=== PATIENT | female | born 1945 | race Caucasian/White ===

== ENCOUNTER 2016-09-17 20:25 | Emergency (ER) | payer MEDICARE, OTHER ==
[2016-09-17] MEDS ORDERED: Sodium Phosphate,Monobasic/Sodium Phosphate,Dibasic Enema 133 ML Bottle RECTAL ONE (21:14)
[2016-09-17] MEDS ORDERED: Alum Hydrox/Mag Hydrox/Simeth 15 ML, Lidocaine 2% 15 ML PO ONE ×2 (21:41)
[2016-09-17 23:06] VITALS: BP 112/65
--- NOTE | 2016-09-17 23:15 | EDM.PDOC ---
ED HPI GI/ABDOMINAL - General Chief Complaint: Gastrointestinal Problem Stated Complaint: VOMITING / CONSTIPATION Time Seen by Provider: 09/17/16 20:53 Source: Reports: Patient History Limitations: Reports: No limitations - History of Present Illness INITIAL COMMENTS - FREE TEXT/NARRATIVE: History of present illness: [Patient is here with constipation. She's not had a good bowel movement for 4 days. She periodically has trouble like this and has been in the ER before for enemas. She's tried to him MiraLax and enemas at home without relief. She is feeling quite miserable. No fevers or chills no vomiting or nausea.] Review of systems: As per history of present illness and below otherwise all systems reviewed and negative. Past medical history: As per history of present illness and as reviewed below otherwise noncontributory. Surgical history: As per history of present illness and as reviewed below otherwise noncontributory. Social history: No reported history of drug or alcohol abuse. Family history: As per history of present illness and as reviewed below otherwise noncontributory. Physical exam: HEENT: Atraumatic, normocephalic, pupils reactive, negative for conjunctival pallor or scleral icterus, mucous membranes moist, throat clear, neck supple, nontender, trachea midline. Lungs: Clear to auscultation, breath sounds equal bilaterally, chest nontender. Heart: S1S2, regular, negative for clicks, rubs, or JVD. Abdomen: The abdomen is doughy and tender throughout without peritoneal signs. Pelvis: Stable nontender. Genitourinary: Deferred. Rectal: Deferred. Extremities: Atraumatic, negative for cords or calf pain. Neurovascular unremarkable. Neuro: Awake, alert, oriented. Exam nonfocal. Diagnostics: [] Therapeutics: [She received several enemas and had good results and felt much better and was very thankful] Impression: [Constipation] Plan: [We discussed some home measures she could try to try to prevent this from happening.] Definitive disposition and diagnosis as appropriate pending reevaluation and review of above. - Related Data Allergies/ADRs: Allergies Allergy/AdvReac Type Severity Reaction Status Date / Time amitriptyline Allergy Cannot Verified 09/17/16 21:05 Remember celecoxib Allergy Cannot Verified 09/17/16 21:05 Remember lurasidone HCl [From Latuda] Allergy Cannot Verified 09/17/16 21:05 Remember Sulfa (Sulfonamide Allergy Rash Verified 09/17/16 21:05 Antibiotics) tramadol Allergy Itching Verified 09/17/16 21:05 Home Meds: Home Meds Cholecalciferol (Vitamin D3) [Vitamin D3] 5,000 unit PO DAILY 11/20/13 [History] Cyanocobalamin (Vitamin B-12) [Vitamin B-12] 1,000 mcg IM ASDIRECTED 11/20/13 [ History] Venlafaxine [Effexor] 150 mg PO BID 11/20/13 [History] Ondansetron [Zofran] 4 mg PO Q8H PRN 12/25/13 [History] LORazepam [Ativan] 0.5 mg PO BID PRN 08/30/15 [History] Diclofenac Sodium [Voltaren 1% Gel] 2 gram TOP QID 02/12/16 [History] FLUoxetine HCl [Fluoxetine HCl] 80 mg PO BEDTIME 03/03/16 [History] Docusate Sodium/Sennosides [Senna Plus] 2 tab PO BID #120 tablet 03/04/16 [Rx] Calcium Carbonate [Tums] 500 mg PO DAILY 03/19/16 [History] traZODone 75 mg PO BEDTIME #0 03/20/16 [Rx] Docusate Sodium/Sennosides [Senna Plus] 2 tab PO DAILY #100 tablet 05/21/16 [Rx] FLUoxetine [PROzac] 80 mg PO BEDTIME cap 05/21/16 [Rx] Lubiprostone [Amitiza] 24 mcg PO BIDMEALS #60 capsule 05/21/16 [Rx] Polyethylene Glycol 3350 [MiraLAX] 119 gm PO ASDIRECTED #0 05/21/16 [Rx] Past Medical History HEENT History: Reports: Cataract, Impaired vision Cardiovascular History: Reports: Other (see below) Other Cardiovascular History: varicose veins Gastrointestinal History: Reports: Chronic constipation Genitourinary History: Reports: Renal disease 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 cervical spine instability Neurological History: Reports: Concussion, Migraines Psychiatric History: Reports: Anxiety, Other (see below) Other Psychiatric History: insomnia Endocrine/Metabolic History: Reports: Osteopenia Hematologic History: Reports: B12 deficiency - Infectious Disease History Infectious Disease History: Reports: Measles, MRSA - Past Surgical History HEENT Surgical History: Reports: Cataract surgery Cardiovascular Surgical History: Reports: None GI Surgical History: Reports: Appendectomy, Bariatric procedure, Cholecystectomy , Colonoscopy, Hernia repair/other, Other (see below) 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 gastric bypass Female Surgical History: Reports: None Endocrine Surgical History: Reports: None Other Neurological Surgeries/Procedures: neck fx with surgery Musculoskeletal Surgical History: Reports: Knee replacement Social & Family History - Tobacco Use Smoking Status *Q: Never Smoker Second Hand Smoke Exposure: No - Caffeine Use Caffeine Use: Reports: Coffee Caffeine Use Comment: 2 cups coffee/day - Alcohol Use Days Per Week of Alcohol Use: 0 - Recreational Drug Use Recreational Drug Use: No - Living Situation & Occupation Living situation: Reports: Occupation: retired (lives with by Becca Rebolledo.) ED ROS GENERAL - Review of Systems Review Of Systems: ROS reveals no pertinent complaints other than HPI. ED EXAM, GI/ABD - Physical Exam Exam: See Below Course - Vital Signs Last Recorded V/S: Last Vital Signs Temp 36.7 C 09/17/16 21:02 Pulse 80 09/17/16 23:04 Resp 20 09/17/16 23:04 BP 112/65 09/17/16 23:04 Pulse Ox 99 09/17/16 23:04 - Orders/Labs/Meds Meds: Medications Discontinued Medications Generic Name Dose Route Start Last Admin Trade Name Raffaeleq PRN Reason Stop Dose Admin Al Hydroxide/Mg Hydroxide 15 0 ml 09/17/16 21:41 09/17/16 21:56 ml/ Lidocaine HCl 15 ml PO 09/17/16 21:42 30 ml ONETIME ONE Administration Sodium Biphosphate/Sodium Phosphate 133 ml 09/17/16 21:14 09/17/16 21:59 Fleet Enema RECTAL 09/17/16 21:15 1 dose ONETIME ONE Administration Departure - Departure Time of Disposition: 23:14 Disposition: Home, Self-Care 01 Condition: good Clinical Impression: Constipation Qualifiers: Constipation type: unspecified constipation type Qualified Code(s): K59.00 - Constipation, unspecified Forms: ED Department Discharge
== END 2016-09-17 23:23 | disposition home or self-care (01) ==
LOC: JP.ED 20:25
DX: K59.00 Constipation, unspecified (principal); M85.80 Other specified disorders of bone density and structure, unspecified site; Z98.890 Other specified postprocedural states; Z90.89 Acquired absence of other organs; Z96.659 Presence of unspecified artificial knee joint; Z79.899 Other long term (current) drug therapy; Z88.2 Allergy status to sulfonamides; Z88.5 Allergy status to narcotic agent
CPT/HCPCS: 99283; A9270

== ENCOUNTER 2016-10-23 21:29 | Emergency (ER) | payer MEDICARE, OTHER ==
[2016-10-23 21:36] VITALS: BP 133/85
[2016-10-23] MEDS ORDERED: Diazepam 2 MG Tab PO ONE (22:00)
--- NOTE | 2016-10-23 22:01 | EDM.PDOC ---
ED HPI GENERAL MEDICAL PROBLEM - General Chief Complaint: Neck Problem Stated Complaint: NECK HURTS NOT AN INJURY Time Seen by Provider: 10/23/16 21:56 Source of Information: Reports: Patient, Family (spouse) - History of Present Illness INITIAL COMMENTS - FREE TEXT/NARRATIVE: With increased neck pain for the last week. Started physical therapy this week and has seen them twice this week. Was gardening today and felt spasms in her neck since 5pm. When has pain is a 10. Is intermittent. Onset: Today, Sudden Onset Date: 10/23/16 Location: Reports: Neck Quality: Reports: Stabbing Severity: Severe Improves with: Reports: None Worsens with: Reports: None Context: Reports: Activity Associated Symptoms: Reports: No Other Symptoms - Related Data Allergies Allergy/AdvReac Type Severity Reaction Status Date / Time amitriptyline Allergy Cannot Verified 10/23/16 21:36 Remember celecoxib Allergy Cannot Verified 10/23/16 21:36 Remember lurasidone HCl [From Latuda] Allergy Cannot Verified 10/23/16 21:36 Remember Sulfa (Sulfonamide Allergy Rash Verified 10/23/16 21:36 Antibiotics) tramadol Allergy Itching Verified 10/23/16 21:36 Home Meds: Home Meds Cholecalciferol (Vitamin D3) [Vitamin D3] 5,000 unit PO DAILY 11/20/13 [History] Cyanocobalamin (Vitamin B-12) [Vitamin B-12] 1,000 mcg IM ASDIRECTED 11/20/13 [ History] Venlafaxine [Effexor] 150 mg PO BID 11/20/13 [History] Ondansetron [Zofran] 4 mg PO Q8H PRN 12/25/13 [History] LORazepam [Ativan] 0.5 mg PO BID PRN 08/30/15 [History] Diclofenac Sodium [Voltaren 1% Gel] 2 gram TOP QID 02/12/16 [History] FLUoxetine HCl [Fluoxetine HCl] 80 mg PO BEDTIME 03/03/16 [History] Docusate Sodium/Sennosides [Senna Plus] 2 tab PO BID #120 tablet 03/04/16 [Rx] Calcium Carbonate [Tums] 500 mg PO DAILY 03/19/16 [History] traZODone 75 mg PO BEDTIME #0 03/20/16 [Rx] Docusate Sodium/Sennosides [Senna Plus] 2 tab PO DAILY #100 tablet 05/21/16 [Rx] FLUoxetine [PROzac] 80 mg PO BEDTIME cap 05/21/16 [Rx] Lubiprostone [Amitiza] 24 mcg PO BIDMEALS #60 capsule 05/21/16 [Rx] Polyethylene Glycol 3350 [MiraLAX] 119 gm PO ASDIRECTED #0 05/21/16 [Rx] Past Medical History HEENT History: Reports: Cataract, Impaired Vision Cardiovascular History: Reports: Other (See Below) Other Cardiovascular History: varicose veins Gastrointestinal History: Reports: Chronic Constipation Genitourinary History: Reports: Renal Disease 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 cervical spine instability Neurological History: Reports: Concussion, Migraines Psychiatric History: Reports: Anxiety Other Psychiatric History: insomnia Endocrine/Metabolic History: Reports: Osteopenia Hematologic History: Reports: B12 Deficiency - Infectious Disease History Infectious Disease History: Reports: Measles, MRSA - Past Surgical History HEENT Surgical History: Reports: Cataract Surgery GI Surgical History: Reports: Appendectomy, Bariatric Procedure, Cholecystectomy , Colonoscopy, Hernia Repair/Other, Other (See Below) Other Neurological Surgeries/Procedures: neck fx with surgery Musculoskeletal Surgical History: Reports: Knee Replacement, Other (See Below) Other Musculoskeletal Surgeries/Procedures:: neck surgery from fallJanuary, Social & Family History - Tobacco Use Smoking Status *Q: Never Smoker Second Hand Smoke Exposure: No - Caffeine Use Caffeine Use: Reports: Coffee, Soda Caffeine Use Comment: 2 cups coffee/day - Alcohol Use Days Per Week of Alcohol Use: 0 - Recreational Drug Use Recreational Drug Use: Yes - Living Situation & Occupation Living situation: Reports: Occupation: Retired ED ROS GENERAL - Review of Systems Review Of Systems: See Below Constitutional: Reports: No Symptoms HEENT: Reports: No Symptoms Respiratory: Reports: No Symptoms Cardiovascular: Reports: No Symptoms Musculoskeletal: Reports: Neck Pain ED EXAM, UPPER BACK/NECK PAIN - Physical Exam Exam: See Below Exam Limited By: No Limitations General Appearance: Alert, WD/WN, No Apparent Distress, Moderate Distress (with spasm) Ears Exam: Normal External Exam, Normal Canal, Hearing Grossly Normal, Normal TMs Nose Exam: Normal Inspection, Normal Mucousa, No Blood Throat/Mouth Exam: Normal Inspection, Normal Lips, Normal Teeth, Normal Gums, Normal Oropharynx, Normal Voice, No Airway Compromise Head Exam: Atraumatic Neck Exam: Limited Range of Motion, Muscle Spasm (to left neck) Cardiovascular/Respiratory: Regular Rate, Rhythm, No M/R/G, Normal Peripheral Pulses, No JVD, Normal Breath Sounds, No Respiratory Distress GI/Abdominal: Normal Bowel Sounds, Soft, Non-Tender, No Organomegaly, No Distention, No Abnormal Bruit, No Mass Course - Vital Signs Last Recorded V/S: Last Vital Signs Temp 97.7 F 10/23/16 21:30 Pulse 100 10/23/16 21:30 Resp 22 H 10/23/16 21:30 BP 133/85 10/23/16 21:30 Pulse Ox 96 10/23/16 21:30 - Orders/Labs/Meds Meds: Medications Discontinued Medications Generic Name Dose Route Start Last Admin Trade Name Raffaeleq PRN Reason Stop Dose Admin Diazepam 2 mg 10/23/16 22:00 10/23/16 22:11 Valium PO 10/23/16 22:01 2 mg ONETIME ONE Administration Departure - Departure Time of Disposition: 22:33 Disposition: Home, Self-Care 01 Condition: good Clinical Impression: Muscle spasms of neck - Discharge Information Referrals: Raoul Gann MD [Primary Care Provider] - Forms: ED Department Discharge Additional Instructions: Pt responds well to oral Valium. Rx for Flexeril 10mg po TID as needed. May use Ibuprofen as needed. Continue ice, stretching and physical therapy. Avoid heavy lifting. Followup if symptoms persisting. - Problem List & Annotations (1) Muscle spasms of neck SNOMED Code(s): 452798973148 Code(s): M62.838 - OTHER MUSCLE SPASM Status: Acute Priority: Low Current Visit: Yes - Problem List Review Problem List Initiated/Reviewed/Updated: Yes
[2016-10-23] MEDS ORDERED: Cyclobenzaprine 10 MG Tab PO ONE (22:55)
[2016-10-23] MEDS ORDERED: Cyclobenzaprine 10 MG Tab ONE (22:56)
== END 2016-10-23 23:03 | disposition home or self-care (01) ==
LOC: JP.ED 21:29
DX: M62.838 Other muscle spasm (principal); F41.9 Anxiety disorder, unspecified; G43.909 Migraine, unspecified, not intractable, without status migrainosus; Z98.890 Other specified postprocedural states; Z90.49 Acquired absence of other specified parts of digestive tract; Z96.659 Presence of unspecified artificial knee joint; Z79.899 Other long term (current) drug therapy; Z88.8 Allergy status to other drugs, medicaments and biological substances; Z88.2 Allergy status to sulfonamides; Z98.49 Cataract extraction status, unspecified eye; Z88.5 Allergy status to narcotic agent
CPT/HCPCS: 99283; A9270

== ENCOUNTER 2017-11-16 19:14 | Emergency (ER) | payer MEDICARE, OTHER ==
[2017-11-16 19:25] VITALS: BP 128/70
[2017-11-16] MEDS ORDERED: Albuterol 0.083% 2.5 MG/3 ML Neb Soln NEB ONE (19:59)
--- NOTE | 2017-11-16 20:04 | EDM.PDOC ---
ED HPI GENERAL MEDICAL PROBLEM - General Chief Complaint: Respiratory Problem Stated Complaint: breathing issues Time Seen by Provider: 11/16/17 19:52 Source of Information: Reports: Patient History Limitations: Reports: No Limitations - History of Present Illness INITIAL COMMENTS - FREE TEXT/NARRATIVE: Patient being treated for URI and has been on amoxicillin for days; this is day 9. She states she was doing better and then she started to feel worse today; panic like She does have a hx of anxiety; hasn't taken anything for that for "awhile" Lila is in the 90's, she is afebrile. is here with her. Location: Reports: Chest Improves with: Reports: None Worsens with: Reports: Breathing Associated Symptoms: Reports: Other (anxiety) - Related Data Allergies Allergy/AdvReac Type Severity Reaction Status Date / Time amitriptyline Allergy Cannot Verified 10/23/16 21:36 Remember celecoxib Allergy Cannot Verified 10/23/16 21:36 Remember lurasidone HCl [From Latuda] Allergy Cannot Verified 10/23/16 21:36 Remember Sulfa (Sulfonamide Allergy Rash Verified 10/23/16 21:36 Antibiotics) tramadol Allergy Itching Verified 10/23/16 21:36 Home Meds: Home Meds Cholecalciferol (Vitamin D3) [Vitamin D3] 5,000 unit PO DAILY 11/20/13 [History] Cyanocobalamin (Vitamin B-12) [Vitamin B-12] 1,000 mcg IM ASDIRECTED 11/20/13 [ History] Venlafaxine [Effexor] 150 mg PO BID 11/20/13 [History] Ondansetron [Zofran] 4 mg PO Q8H PRN 12/25/13 [History] LORazepam [Ativan] 0.5 mg PO BID PRN 08/30/15 [History] Diclofenac Sodium [Voltaren 1% Gel] 2 gram TOP QID 02/12/16 [History] FLUoxetine HCl [Fluoxetine HCl] 80 mg PO BEDTIME 03/03/16 [History] Docusate Sodium/Sennosides [Senna Plus] 2 tab PO BID #120 tablet 03/04/16 [Rx] Calcium Carbonate [Tums] 500 mg PO DAILY 03/19/16 [History] traZODone 75 mg PO BEDTIME #0 03/20/16 [Rx] Docusate Sodium/Sennosides [Senna Plus] 2 tab PO DAILY #100 tablet 05/21/16 [Rx] FLUoxetine [PROzac] 80 mg PO BEDTIME cap 05/21/16 [Rx] Lubiprostone [Amitiza] 24 mcg PO BIDMEALS #60 capsule 05/21/16 [Rx] Polyethylene Glycol 3350 [MiraLAX] 119 gm PO ASDIRECTED #0 05/21/16 [Rx] Past Medical History HEENT History: Reports: Cataract, Impaired Vision Cardiovascular History: Reports: Other (See Below) Other Cardiovascular History: varicose veins Gastrointestinal History: Reports: Chronic Constipation, GERD Genitourinary History: Reports: Renal Disease, Other (See Below) Other Genitourinary History: 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 cervical spine instability Neurological History: Reports: Concussion, Migraines Psychiatric History: Reports: Anxiety, Depression, Panic Attack Other Psychiatric History: insomnia Endocrine/Metabolic History: Reports: Osteopenia Hematologic History: Reports: B12 Deficiency, Other (See Below) Other Hematologic History: spiral cyctosis - hereditary - Infectious Disease History Infectious Disease History: Reports: Measles, MRSA - Past Surgical History HEENT Surgical History: Reports: Cataract Surgery, Oral Surgery, Other (See Below) Other HEENT Surgeries/Procedures: implanted teeth GI Surgical History: Reports: Appendectomy, Bariatric Procedure, Cholecystectomy , Colonoscopy, Hernia Repair/Other, Other (See Below) Other GI Surgeries/Procedures: spleenectomy Other Neurological Surgeries/Procedures: neck fx with surgery Musculoskeletal Surgical History: Reports: Knee Replacement, Other (See Below) Other Musculoskeletal Surgeries/Procedures:: neck surgery from fallJanuary, Social & Family History - Tobacco Use Smoking Status *Q: Never Smoker - Caffeine Use Caffeine Use: Reports: Coffee Caffeine Use Comment: 2 cups coffee/day - Recreational Drug Use Recreational Drug Use: No - Living Situation & Occupation Living situation: Reports: Occupation: Retired ED ROS GENERAL - Review of Systems Review Of Systems: See Below Constitutional: Reports: Fever (which has subsided) HEENT: Reports: No Symptoms Respiratory: Reports: Shortness of Breath, Cough Cardiovascular: Reports: No Symptoms GI/Abdominal: Reports: No Symptoms : Reports: No Symptoms Musculoskeletal: Reports: No Symptoms Skin: Reports: No Symptoms Neurological: Reports: No Symptoms Psychiatric: Reports: Anxiety ED EXAM, GENERAL - Physical Exam Exam: See Below Exam Limited By: No Limitations General Appearance: Alert, WD/WN, No Apparent Distress Nose: Normal Inspection Throat/Mouth: Normal Inspection Head: Atraumatic, Normocephalic Neck: Normal Inspection, Supple, Non-Tender, Full Range of Motion Respiratory/Chest: No Respiratory Distress, Decreased Breath Sounds Cardiovascular: Regular Rate, Rhythm GI/Abdominal: Normal Bowel Sounds Extremities: Normal Inspection, Normal Range of Motion Neurological: Alert, Oriented, CN II-XII Intact, Normal Cognition, Normal Gait Psychiatric: Normal Affect, Normal Mood, Anxious Skin Exam: Warm, Dry, Intact, Normal Color, No Rash Course - Vital Signs Last Recorded V/S: Last Vital Signs Temp 98.0 F 11/16/17 19:25 Pulse 72 11/16/17 19:25 Resp 28 H 11/16/17 19:25 BP 128/70 11/16/17 19:25 Pulse Ox 98 11/16/17 19:25 - Orders/Labs/Meds Orders: Active Orders 24 hr Category Date Time Status RT Aerosol Therapy [RC] ASDIRECTED Care 11/16/17 19:59 Active Chest 1V Frontal [CR] Stat Exams 11/16/17 19:59 Taken Labs: Laboratory Tests 11/16/17 11/16/17 Range/Units 20:00 20:00 WBC 10.7 (4.5-11.0) K/uL RBC 3.97 (3.30-5.50) M/uL Hgb 12.6 (12.0-15.0) g/dL Hct 38.1 (36.0-48.0) % MCV 96 (80-98) fL MCH 32 H (27-31) pg MCHC 33 (32-36) % Plt Count 521 H (150-400) K/uL Neut % (Auto) 62 (36-66) % Lymph % (Auto) 24 (24-44) % Rhea % (Auto) 11 H (2-6) % Eos % (Auto) 2 (2-4) % Baso % (Auto) 1 (0-1) % Sodium 142 (140-148) mmol/L Potassium 4.3 (3.6-5.2) mmol/L Chloride 106 (100-108) mmol/L Carbon Dioxide 24 (21-32) mmol/L Anion Gap 11.9 (5.0-14.0) mmol/L BUN 32 H D (7-18) mg/dL Creatinine 1.1 H (0.6-1.0) mg/dL Est Cr Clr Drug Dosing 37.68 mL/min Estimated GFR (MDRD) 49 L (>60) Glucose 88 (74-106) mg/dL Calcium 8.6 (8.5-10.1) mg/dL Total Bilirubin 0.3 (0.2-1.0) mg/dL AST 25 (15-37) U/L ALT 20 (12-78) U/L Alkaline Phosphatase 145 H (46-116) U/L Total Protein 6.0 L (6.4-8.2) g/dL Albumin 2.8 L (3.4-5.0) g/dL Globulin 3.2 (2.3-3.5) g/dL Albumin/Globulin Ratio 0.9 L (1.2-2.2) Meds: Medications Discontinued Medications Generic Name Dose Route Start Last Admin Trade Name Freq PRN Reason Stop Dose Admin Albuterol 2.5 mg 11/16/17 19:59 11/16/17 20:07 Proventil Neb Soln NEB 11/16/17 20:00 2.5 mg ONETIME ONE Administration - Re-Assessments/Exams Free Text/Narrative Re-Assessment/Exam: 11/16/17 21:13 Discussed lab and chest xray results She is comfortable with being discharge home. Departure - Departure Time of Disposition: 21:10 Disposition: Home, Self-Care 01 Condition: Good Clinical Impression: Bronchitis Clinical Impression: (Ruled Out): Acute bronchiolitis - Discharge Information Instructions: Acute Bronchitis, Adult, [id number] Referrals: Raoul Gann MD [Primary Care Provider] - Forms: ED Department Discharge Additional Instructions: Rest Push fluids Medications as directed Follow up if not improving by Wednesday If worse, come to the ER. - Problem List & Annotations (1) Bronchitis SNOMED Code(s): 73905985 Code(s): J40 - BRONCHITIS, NOT SPECIFIED ACUTE OR CHRONIC Status: Acute Priority: Medium Current Visit: Yes - My Orders Last 24 Hours: My Active Orders 11/16/17 19:59 RT Aerosol Therapy [RC] ASDIRECTED Chest 1V Frontal [CR] Stat - Assessment/Plan Last 24 Hours: My Active Orders 11/16/17 19:59 RT Aerosol Therapy [RC] ASDIRECTED Chest 1V Frontal [CR] Stat
--- NOTE | 2017-11-18 10:23 | CR ---
Chest 1V Frontal INDICATION: shortness of breath COMPARISON: 12/25/2013 FINDINGS: AP portable chest. Chest is rotated. No definite infiltrate or signs of pulmonary edema. No pleural effusion. Heart size normal. Postoperative change upper abdomen. Postop change cervical spine.
== END 2017-11-16 21:17 | disposition home or self-care (01) ==
LOC: JP.ED 19:14
DX: J40 Bronchitis, not specified as acute or chronic (principal); K21.9 Gastro-esophageal reflux disease without esophagitis; F41.9 Anxiety disorder, unspecified; F32.9 Major depressive disorder, single episode, unspecified; Z79.899 Other long term (current) drug therapy; Z88.1 Allergy status to other antibiotic agents; Z88.5 Allergy status to narcotic agent; Z88.2 Allergy status to sulfonamides; Z88.8 Allergy status to other drugs, medicaments and biological substances
CPT/HCPCS: 36415; 71045; 71045-26; 80053; 85025; 94640; 99284-25

== ENCOUNTER 2018-01-15 07:53 | Emergency (ER) | payer MEDICARE, OTHER ==
[2018-01-15 08:15] VITALS: BP 125/72
[2018-01-15] MEDS ORDERED: fentaNYL 100 MCG/2 ML SDV IM ONE (08:32)
--- NOTE | 2018-01-15 08:47 | EDM.PDOC ---
ED HPI GENERAL MEDICAL PROBLEM - General Chief Complaint: Back Pain or Injury Stated Complaint: LOW RT BACK PAIN Time Seen by Provider: 01/15/18 08:30 Source of Information: Reports: Patient History Limitations: Reports: No Limitations - History of Present Illness INITIAL COMMENTS - FREE TEXT/NARRATIVE: 72-year-old female has been having right sided hip and buttock pain for the past several days after a fall 5 days ago. Initially she didn't have significant pain but it worsened, she was seen in the clinic 2 days ago and rib x-rays and a pelvis x-ray appeared normal. She is on Voltaren topical and Tylenol but it is worsening instead of improving. It's a very sharp stabbing pain in the upper right posterior pelvis with even slight movement. No dysuria, denies nausea or vomiting. No bruising or rash. Duration: Day(s): (3-4 days) Location: Reports: Back, Pelvis Severity: Moderate Worsens with: Reports: Movement Associated Symptoms: Reports: Other (No urinary symptoms). Denies: Cough, Diaphoresis, Fever/Chills, Nausea/Vomiting, Shortness of Breath, Weakness Right Lower Back Pain Score (Numeric/FACES): 10 - Related Data Allergies Allergy/AdvReac Type Severity Reaction Status Date / Time amitriptyline Allergy Cannot Verified 01/15/18 08:04 Remember celecoxib Allergy Cannot Verified 01/15/18 08:04 Remember lurasidone HCl [From Latuda] Allergy Cannot Verified 01/15/18 08:04 Remember Sulfa (Sulfonamide Allergy Rash Verified 01/15/18 08:04 Antibiotics) tramadol Allergy Itching Verified 01/15/18 08:04 Home Meds: Home Meds Cyanocobalamin (Vitamin B-12) [Vitamin B-12] 1,000 mcg IM ASDIRECTED 11/20/13 [ History] Venlafaxine [Effexor] 100 mg PO BID 11/20/13 [History] Ondansetron [Zofran] 4 mg PO Q8H PRN 12/25/13 [History] Diclofenac Sodium [Voltaren 1% Gel] 2 gram TOP QID 02/12/16 [History] traZODone 75 mg PO BEDTIME #0 03/20/16 [Rx] Lubiprostone [Amitiza] 24 mcg PO BIDMEALS #60 capsule 05/21/16 [Rx] Aspirin [Ecotrin] 325 mg PO DAILY 11/17/17 [History] Furosemide [Lasix] 20 mg PO DAILY 11/17/17 [History] Polyethylene Glycol 3350 [MiraLAX] 17 gm PO ASDIRECTED 11/17/17 [History] Past Medical History HEENT History: Reports: Cataract, Impaired Vision Cardiovascular History: Reports: Other (See Below) Other Cardiovascular History: varicose veins Gastrointestinal History: Reports: Chronic Constipation, GERD Genitourinary History: Reports: Renal Disease, Other (See Below) Other Genitourinary History: sees kidney specialist for function [employer]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 cervical spine instability Neurological History: Reports: Concussion, Migraines Psychiatric History: Reports: Anxiety, Depression, Panic Attack Other Psychiatric History: insomnia Endocrine/Metabolic History: Reports: Osteopenia Hematologic History: Reports: B12 Deficiency, Other (See Below) Other Hematologic History: spiral cyctosis - hereditary - Infectious Disease History Infectious Disease History: Reports: Measles - Past Surgical History HEENT Surgical History: Reports: Cataract Surgery, Oral Surgery, Other (See Below) Other HEENT Surgeries/Procedures: implanted teeth GI Surgical History: Reports: Appendectomy, Bariatric Procedure, Cholecystectomy , Colonoscopy, Hernia Repair/Other, Other (See Below) Other GI Surgeries/Procedures: spleenectomy Other Neurological Surgeries/Procedures: neck fx with surgery Musculoskeletal Surgical History: Reports: Knee Replacement, Other (See Below) Other Musculoskeletal Surgeries/Procedures:: neck surgery from fallJanuary, Social & Family History - Tobacco Use Smoking Status *Q: Never Smoker Second Hand Smoke Exposure: No - Caffeine Use Caffeine Use: Reports: Coffee, Energy Drinks Caffeine Use Comment: 2 cups coffee/day - Recreational Drug Use Recreational Drug Use: No - Living Situation & Occupation Living situation: Reports: Occupation: Retired ED ROS GENERAL - Review of Systems Review Of Systems: See Below Constitutional: Denies: Fever, Chills HEENT: Reports: No Symptoms Respiratory: Denies: Shortness of Breath, Pleuritic Chest Pain, Cough Cardiovascular: Denies: Chest Pain GI/Abdominal: Denies: Abdominal Pain, Nausea, Vomiting : Reports: No Symptoms Skin: Denies: Bruising Neurological: Denies: Paresthesia ED EXAM,LOWER BACK PAIN/INJURY - Physical Exam Exam: See Below Exam Limited By: No Limitations General Appearance: Alert, Mild Distress (Appears very uncomfortable with any movement) Neck: Supple Respiratory/Chest: No Respiratory Distress Cardiovascular: Regular Rate, Rhythm GI/Abdominal: Soft, Non-Tender Back Exam: Other (Severe point tenderness to the right sacroiliac joint into the right ilium and upper buttock. Increased pain with passive range of motion of the hip.) Course - Vital Signs Last Recorded V/S: Last Vital Signs Temp 98.9 F 01/15/18 08:23 Pulse 78 01/15/18 08:23 Resp 16 01/15/18 08:23 BP 125/72 01/15/18 08:23 Pulse Ox 97 01/15/18 08:23 - Orders/Labs/Meds Orders: Active Orders 24 hr Category Date Time Status Pelvis wo Cont [CT] Stat Exams 01/15/18 08:32 Taken Meds: Medications Discontinued Medications Generic Name Dose Route Start Last Admin Trade Name Danyell PRN Reason Stop Dose Admin Fentanyl 50 mcg 01/15/18 08:32 01/15/18 08:48 Sublimaze IM 01/15/18 08:33 50 mcg ONETIME ONE Administration - Re-Assessments/Exams Free Text/Narrative Re-Assessment/Exam: 01/15/18 08:47 Patient was given 50 g of fentanyl IM and a pelvis CT was done to rule out any occult fracture that may have been missed by the x-ray. 01/15/18 10:20 After the fentanyl the patient slept soundly for the next hour, CT was negative for any occult fracture. She'll be discharged with 10 hydrocodone for extra pain control and should recheck early next week to initiate physical therapy if she is not improving. Departure - Departure Time of Disposition: 10:50 Disposition: Home, Self-Care 01 Condition: Good Clinical Impression: Contusion of lower back and pelvis, initial encounter - Discharge Information Instructions: Contusion, [id number] Referrals: Raoul Gann MD [Primary Care Provider] - Forms: ED Department Discharge Care Plan Goals: Ibuprofen or naproxen along with Tylenol may be helpful for pain control, and add stronger pain medication as prescribed if needed. Activity as tolerated and recheck early next week if not improving satisfactorily. Physical therapy may be needed. - My Orders Last 24 Hours: My Active Orders 01/15/18 08:32 Pelvis wo Cont [CT] Stat - Assessment/Plan Last 24 Hours: My Active Orders 01/15/18 08:32 Pelvis wo Cont [CT] Stat
== END 2018-01-15 10:50 | disposition home or self-care (01) ==
LOC: JP.ED 07:53
DX: S30.0XXA Contusion of lower back and pelvis, initial encounter (principal); F41.9 Anxiety disorder, unspecified; F32.9 Major depressive disorder, single episode, unspecified; Z79.82 Long term (current) use of aspirin; Z79.899 Other long term (current) drug therapy; Z88.2 Allergy status to sulfonamides; Z88.5 Allergy status to narcotic agent; Z88.8 Allergy status to other drugs, medicaments and biological substances; W19.XXXA Unspecified fall, initial encounter
CPT/HCPCS: 72192; 96372; 99284; J3010

== ENCOUNTER 2018-10-08 15:36 | Emergency (ER) | payer MEDICARE, OTHER ==
--- NOTE | 2018-10-08 15:49 | EDM.PDOC ---
ED HPI GENERAL MEDICAL PROBLEM - General Chief Complaint: Upper Extremity Injury/Pain Stated Complaint: FELL Time Seen by Provider: 10/08/18 15:49 Source of Information: Reports: Patient, Family History Limitations: Reports: No Limitations - History of Present Illness INITIAL COMMENTS - FREE TEXT/NARRATIVE: 73-year-old female stumbled in her home falling onto her left elbow and striking her forehead just above the left eye. She has a laceration above the left eyebrow, and pain of the left elbow. No other complaints. No loss of consciousness, visual complaints, nausea vomiting or shortness of breath. Onset: Sudden Duration: Hour(s): (within the last hour) Location: Reports: Face, Upper Extremity, Left Quality: Reports: Sharp, Stabbing Severity: Moderate Worsens with: Reports: Movement (any movement of the left arm causes intense pain) - Related Data Allergies Allergy/AdvReac Type Severity Reaction Status Date / Time amitriptyline Allergy Cannot Verified 10/08/18 15:44 Remember celecoxib Allergy Cannot Verified 10/08/18 15:44 Remember lurasidone HCl [From Latuda] Allergy Cannot Verified 10/08/18 15:44 Remember Sulfa (Sulfonamide Allergy Rash Verified 10/08/18 15:44 Antibiotics) tramadol Allergy Itching Verified 10/08/18 15:44 Home Meds: Home Meds Cyanocobalamin (Vitamin B-12) [Vitamin B-12] 1,000 mcg IM ASDIRECTED 11/20/13 [ History] Venlafaxine [Effexor] 100 mg PO BID 11/20/13 [History] Ondansetron [Zofran] 4 mg PO Q8H PRN 12/25/13 [History] Diclofenac Sodium [Voltaren 1% Gel] 2 gram TOP QID 02/12/16 [History] traZODone 75 mg PO BEDTIME #0 03/20/16 [Rx] Aspirin [Ecotrin] 325 mg PO DAILY 11/17/17 [History] Furosemide [Lasix] 20 mg PO DAILY 11/17/17 [History] Polyethylene Glycol 3350 [MiraLAX] 17 gm PO ASDIRECTED 11/17/17 [History] LORazepam 10/08/18 [History] Ramelteon [Rozerem] 10/08/18 [History] Past Medical History HEENT History: Reports: Cataract, Impaired Vision Cardiovascular History: Reports: Other (See Below) Other Cardiovascular History: varicose veins Gastrointestinal History: Reports: Chronic Constipation, GERD Genitourinary History: Reports: Renal Disease, Other (See Below) Other Genitourinary History: 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 cervical spine instability Neurological History: Reports: Concussion, Migraines Psychiatric History: Reports: Anxiety, Depression, Panic Attack Other Psychiatric History: insomnia Endocrine/Metabolic History: Reports: Osteopenia Hematologic History: Reports: B12 Deficiency, Other (See Below) Other Hematologic History: spiral cyctosis - hereditary - Infectious Disease History Infectious Disease History: Reports: Measles - Past Surgical History HEENT Surgical History: Reports: Cataract Surgery, Oral Surgery, Other (See Below) Other HEENT Surgeries/Procedures: implanted teeth GI Surgical History: Reports: Appendectomy, Bariatric Procedure, Cholecystectomy , Colonoscopy, Hernia Repair/Other, Other (See Below) Other GI Surgeries/Procedures: spleenectomy Other Neurological Surgeries/Procedures: neck fx with surgery Musculoskeletal Surgical History: Reports: Knee Replacement, Other (See Below) Other Musculoskeletal Surgeries/Procedures:: neck surgery from fallJanuary, Social & Family History - Caffeine Use Caffeine Use: Reports: Coffee, Energy Drinks Caffeine Use Comment: 2 cups coffee/day - Living Situation & Occupation Living situation: Reports: Occupation: Retired Review of Systems - Review of Systems Review Of Systems: See Below Constitutional: Denies: Fever Respiratory: Denies: Shortness of Breath Cardiovascular: Denies: Chest Pain GI/Abdominal: Denies: Abdominal Pain, Nausea, Vomiting Skin: Denies: Bruising Neurological: Denies: Paresthesia (no paresthesias of the fingers) Psychiatric: Reports: Anxiety ED EXAM, GENERAL - Physical Exam Exam: See Below Exam Limited By: No Limitations General Appearance: Alert. No: Mild Distress (fairly anxious, fairly uncomfortable from left elbow pain) Eye Exam: Bilateral Eye: EOMI, PERRL Head: Other (patient has a 3 cm transverse laceration just above the left eyebrow laterally) Neck: Non-Tender Respiratory/Chest: No Respiratory Distress, Lungs Clear Extremities: Other (patient has exquisite tenderness to palpation around the left elbow with any passive range of motion,palpation tenderness, but distal CMS of the hand and wrist is intact. No tenderness to the collarbone or shoulder.) Psychiatric: Anxious Skin Exam: Other (laceration as described to the left eyebrow) Course - Vital Signs Last Recorded V/S: Last Vital Signs Temp 96.6 F 10/08/18 15:54 Pulse 60 10/08/18 15:54 Resp 14 10/08/18 15:54 BP 142/78 H 10/08/18 15:54 Pulse Ox 99 10/08/18 15:54 - Orders/Labs/Meds Orders: Active Orders 24 hr Category Date Time Status DME for Discharge [COMM] Stat Oth 10/08/18 17:48 Ordered Meds: Medications Discontinued Medications Generic Name Dose Route Start Last Admin Trade Name Freq PRN Reason Stop Dose Admin Bacitracin 1 dose 10/08/18 16:20 10/08/18 18:08 Bacitracin Oint 1 Gm TOP 10/08/18 16:21 1 dose ONETIME ONE Administration Fentanyl 50 mcg 10/08/18 15:56 10/08/18 16:01 Sublimaze IVPUSH 10/08/18 15:57 50 mcg ONETIME ONE Administration Fentanyl Confirm 10/08/18 15:58 Sublimaze Administered 10/08/18 15:59 Dose 100 mcg .ROUTE .STK-MED ONE Fentanyl 50 mcg 10/08/18 16:53 10/08/18 18:07 Sublimaze IVPUSH 10/08/18 16:54 50 mcg ONETIME ONE Administration Lidocaine HCl 5 ml 10/08/18 16:20 10/08/18 18:07 Xylocaine-Mpf 1% INJECT 10/08/18 16:21 5 ml ONETIME ONE Administration - Re-Assessments/Exams Free Text/Narrative Re-Assessment/Exam: 10/08/18 17:52 an x-ray left elbow was obtained which showed a supracondylar fracture mildly displaced. Patient was given 50 g of fentanyl 2 during her hospital stay for pain control, and a long-arm posterior Ortho-Glass splint was placed on the arm. The laceration was cleansed thoroughly with saline after anesthetizing patient with 1% lidocaine, and 7 5-0 Ethilon sutures were used to close the laceration. She tolerated both procedures well. She was discharged with 20 hydrocodone for pain control, and instructed to see orthopedics next week. Departure - Departure Time of Disposition: 18:10 Disposition: Home, Self-Care 01 Clinical Impression: Laceration of left eyebrow without complication Qualifiers: Encounter type: initial encounter Qualified Code(s): S01.112A - Laceration without foreign body of left eyelid and periocular area, initial encounter Fracture, supracondylar, elbow, left, closed Qualifiers: Encounter type: initial encounter Qualified Code(s): S42.412A - Displaced simple supracondylar fracture without intercondylar fracture of left humerus, initial encounter for closed fracture - Discharge Information Instructions: Laceration Care, Adult, Distal Humerus Elbow Fracture Referrals: Raoul Gann MD [Primary Care Provider] - Forms: ED Department Discharge Care Plan Goals: Keep arm in splint and sling until recheck with the Cabrera Pereira in the orthopedic clinic next week. Call the clinic as discussed on Wednesday for an appointment time. Return sooner if difficulties with splint, increased pain or other concerns. Sutures can be removed next Wednesday. Keep wound clean while healing. Ibuprofen will help with pain, at stronger pain medication as described if needed. - My Orders Last 24 Hours: My Active Orders 10/08/18 17:48 DME for Discharge [COMM] Stat - Assessment/Plan Last 24 Hours: My Active Orders 10/08/18 17:48 DME for Discharge [COMM] Stat
[2018-10-08 15:55] VITALS: BP 142/78
[2018-10-08] MEDS ORDERED: fentaNYL 100 MCG/2 ML SDV IVPUSH ONE ×2 (15:56→16:53)
[2018-10-08] MEDS ORDERED: fentaNYL 100 MCG/2 ML SDV ONE (15:58)
[2018-10-08] MEDS ORDERED: Bacitracin Oint 1 GM U/D Packet TOP ONE (16:20)
--- NOTE | 2018-10-08 16:32 | CRLCR ---
INDICATION: Fall. Pain. TECHNIQUE: Three views left elbow. FINDINGS: Mildly displaced acute comminuted fracture involving the distal left humerus extending from the distal metadiaphysis is to the metaphysis most marked along the radial aspect. Soft tissue swelling distal arm and elbow. Osteopenia. Degenerate arthritis left elbow. Remainder negative. Dictated by Eber Roca MD @ Oct 08 2018 4:28PM Signed by Dr. Eber Roca @ Oct 08 2018 4:30PM
== END 2018-10-08 18:10 | disposition home or self-care (01) ==
LOC: JP.ED 15:36
DX: S42.412A Displaced simple supracondylar fracture without intercondylar fracture of left humerus, initial encounter for closed fracture (principal); S01.112A Laceration without foreign body of left eyelid and periocular area, initial encounter; K21.9 Gastro-esophageal reflux disease without esophagitis; F41.9 Anxiety disorder, unspecified; F32.9 Major depressive disorder, single episode, unspecified; Z79.899 Other long term (current) drug therapy; Z88.1 Allergy status to other antibiotic agents; Z88.2 Allergy status to sulfonamides; Z88.6 Allergy status to analgesic agent; Z88.8 Allergy status to other drugs, medicaments and biological substances; W19.XXXA Unspecified fall, initial encounter
CPT/HCPCS: 12013; 29105; 73070; 96374; 99283; J2001; J3010

== ENCOUNTER 2018-10-10 17:01 | Emergency (ER) | payer MEDICARE, OTHER | END 2018-10-10 17:21 | disposition left against medical advice (07) | LOC: JP.ED 17:01 → EEVIPCON 17:01 → JP.ED 17:21 | DX: Z53.21 Procedure and treatment not carried out due to patient leaving prior to being seen by health care provider (principal) ==

== ENCOUNTER 2018-10-26 11:02 | Emergency (ER) | payer MEDICARE, OTHER ==
[2018-10-26] MEDS ORDERED: Bisacodyl 10 MG Supp RECTAL ONE (11:32)
[2018-10-26] MEDS ORDERED: Polyethylene Glycol 3350 Powder 17 GM Packet PO ONE (11:32)
--- NOTE | 2018-10-26 11:38 | EDM.PDOC ---
ED HPI GENERAL MEDICAL PROBLEM - General Chief Complaint: Upper Extremity Injury/Pain Stated Complaint: fell via north Time Seen by Provider: 10/26/18 11:20 Source of Information: Reports: Patient, EMS, Family, Old Records History Limitations: Reports: No Limitations - History of Present Illness INITIAL COMMENTS - FREE TEXT/NARRATIVE: 73 yo female here after a fall at home. Says she was light-headed and felt like she might fall so she reached for the door knob and got her L arm sling caught on the knob and had that arm that is currently in a cast pulled. Also bumped her L lateral eye brow and had some bleeding at home. Fell a couple weeks ago and had to have stitches above the L eye and broke her L arm. Had an appt for a physical yesterday but cancelled due to the left arm pain. Has not had a BM in several days. Is on a narcotic pain medicine. Onset: Today (fall today) Onset Date: 10/26/18 Duration: Minutes: Location: Reports: Head (light-headed with standing), Face (L eye brow area) Quality: Reports: Dull Severity: Mild Improves with: Reports: None Worsens with: Reports: None Context: Reports: Other (see HPI) Associated Symptoms: Reports: No Other Symptoms. Denies: Fever/Chills Treatments [employer]: Reports: Other (see below) (EMS transported, no interventions by them. ) - Related Data Allergies Allergy/AdvReac Type Severity Reaction Status Date / Time amitriptyline Allergy Cannot Verified 10/26/18 11:16 Remember celecoxib Allergy Cannot Verified 10/26/18 11:16 Remember lurasidone HCl [From Latuda] Allergy Cannot Verified 10/26/18 11:16 Remember Sulfa (Sulfonamide Allergy Rash Verified 10/26/18 11:16 Antibiotics) tramadol Allergy Itching Verified 10/26/18 11:16 Home Meds: Home Meds Cyanocobalamin (Vitamin B-12) [Vitamin B-12] 1,000 mcg IM ASDIRECTED 11/20/13 [ History] Venlafaxine [Effexor] 100 mg PO BID 11/20/13 [History] Ondansetron [Zofran] 4 mg PO Q8H PRN 12/25/13 [History] Diclofenac Sodium [Voltaren 1% Gel] 2 gram TOP QID 02/12/16 [History] traZODone 75 mg PO BEDTIME #0 03/20/16 [Rx] Aspirin [Ecotrin] 325 mg PO DAILY 11/17/17 [History] Furosemide [Lasix] 20 mg PO DAILY 11/17/17 [History] Polyethylene Glycol 3350 [MiraLAX] 17 gm PO ASDIRECTED 11/17/17 [History] LORazepam 0.5 mg PO BID PRN 10/08/18 [History] Ramelteon [Rozerem] 8 mg PO DAILY PRN 10/08/18 [History] Hydrocodone/Acetaminophen [Hydrocodon-Acetaminophen 5-325] 1 tab PO Q6H PRN [History] Cephalexin [Keflex] 500 mg PO Q8H #14 capsule 10/26/18 [Rx] oxyCODONE HCl/Acetaminophen [Percocet 5-325 mg Tablet] 1 cap PO Q6HR 10/26/18 [ History] Past Medical History HEENT History: Reports: Cataract, Impaired Vision Cardiovascular History: Reports: Other (See Below) Other Cardiovascular History: varicose veins Respiratory History: Reports: None Gastrointestinal History: Reports: Chronic Constipation, GERD Genitourinary History: Reports: Renal Disease, Other (See Below) Other Genitourinary History: sees kidney specialist for function [employer] History: Reports: Musculoskeletal History: Reports: Arthritis, Fracture Other Musculoskeletal History: spinal stenosis. cervical spine instability. left elbow FX Neurological History: Reports: Concussion, Migraines Psychiatric History: Reports: Anxiety, Depression, Panic Attack Other Psychiatric History: insomnia Endocrine/Metabolic History: Reports: Osteopenia Hematologic History: Reports: B12 Deficiency, Other (See Below) Other Hematologic History: spiral cyctosis - hereditary Immunologic History: Reports: None Oncologic (Cancer) History: Reports: None Dermatologic History: Reports: None - Infectious Disease History Infectious Disease History: Reports: Measles - Past Surgical History Head Surgeries/Procedures: Reports: None HEENT Surgical History: Reports: Cataract Surgery, Oral Surgery, Other (See Below) Other HEENT Surgeries/Procedures: implanted teeth GI Surgical History: Reports: Appendectomy, Bariatric Procedure, Cholecystectomy , Colonoscopy, Hernia Repair/Other, Other (See Below) Other GI Surgeries/Procedures: spleenectomy Female Surgical History: Reports: None Endocrine Surgical History: Reports: None Other Neurological Surgeries/Procedures: neck fx with surgery Musculoskeletal Surgical History: Reports: Knee Replacement, Other (See Below) Other Musculoskeletal Surgeries/Procedures:: neck surgery from fallJanuary, Social & Family History - Tobacco Use Smoking Status *Q: Never Smoker - Caffeine Use Caffeine Use: Reports: Coffee Caffeine Use Comment: 2 cups coffee/day - Recreational Drug Use Recreational Drug Use: No - Living Situation & Occupation Living situation: Reports: Occupation: Retired Review of Systems - Review of Systems Review Of Systems: See Below Constitutional: Reports: Weakness Eyes: Reports: No Symptoms Ears: Reports: No Symptoms Nose: Reports: No Symptoms Mouth/Throat: Reports: No Symptoms Respiratory: Reports: No Symptoms Cardiovascular: Reports: Lightheadedness (with standing) GI/Abdominal: Reports: Constipation Genitourinary: Reports: No Symptoms Musculoskeletal: Reports: Arm Pain (L arm in a cast due to fx) Skin: Reports: Wound (L lateral eye brow) ED EXAM, GENERAL - Physical Exam Exam: See Below Exam Limited By: No Limitations General Appearance: Alert, WD/WN, No Apparent Distress Eye Exam: Bilateral Eye: Normal Inspection Ears: Normal External Exam, Normal Canal, Hearing Grossly Normal, Normal TMs Ear Exam: Bilateral Ear: Auricle Normal, Canal Normal, TM normal Nose: Normal Inspection, No Blood Throat/Mouth: Normal Inspection, Normal Lips, Normal Oropharynx, Normal Voice, No Airway Compromise Head: Facial Tenderness (L lateral eye brow) Neck: Normal Inspection Respiratory/Chest: No Respiratory Distress, Lungs Clear, Normal Breath Sounds, No Accessory Muscle Use Cardiovascular: Regular Rate, Rhythm, No Edema GI/Abdominal: Normal Bowel Sounds, Soft, Non-Tender, No Distention Back Exam: Normal Inspection. No: CVA Tenderness (R), CVA Tenderness (L) Extremities: Normal Inspection, Normal Range of Motion, Non-Tender, No Pedal Edema Neurological: Alert, Oriented, CN II-XII Intact, Normal Cognition, No Motor/ Sensory Deficits Psychiatric: Normal Mood, Flat Affect Skin Exam: Warm, Dry, Intact, Normal Color, No Rash ED TRAUMA EXTREMITY PROCEDURES - Laceration/Wound Repair Left Lateral Brow Lac/Wound Length In cm: 0.7 Appearance: Subcutaneous, Other (flap) Distal NVT: Neuro & Vascular Intact Anesthetic Type: Local Local Anesthesia - Lidocaine (Xylocaine): 1% with EPI Local Anesthetic Volume: 2cc Skin Prep: Saline Exploration/Debridement/Repair: Wound Explored Closed With: Sutures Suture Size: other (6-0) Suture Type: Prolene Drain Placement: No Sterile Dressing Applied: Nurse Tetanus Status Addressed: Yes Complications: No Course - Vital Signs Last Recorded V/S: Last Vital Signs Temp 36.8 C 10/26/18 11:23 Pulse 78 10/26/18 11:23 Resp 15 10/26/18 11:23 BP 102/66 10/26/18 11:23 Pulse Ox 98 10/26/18 11:23 Orthostatic Blood Pressure [ 90/65 Standing] Orthostatic Blood Pressure [ 99/74 Sitting] Orthostatic Blood Pressure [ 112/64 Supine] - Orders/Labs/Meds Orders: Active Orders 24 hr Category Date Time Status Orthostatic Vital Signs [RC] ASDIRECTED Care 10/26/18 11:30 Active CULTURE URINE [RM] Stat Lab 10/26/18 12:43 Received Lactated Ringers [Ringers, Lactated] 1,000 ml Med 10/26/18 12:21 Active IV BOLUS Medication Orders Lactated Ringer's (Ringers, Lactated) 1,000 mls @ 1,000 mls/hr IV BOLUS ONE Stop: 10/26/18 13:20 Last Admin: 10/26/18 12:51 Dose: 1,000 mls/hr Labs: Laboratory Tests 10/26/18 10/26/18 10/26/18 Range/Units 11:41 11:41 11:41 WBC 13.9 H (4.5-11.0) K/uL RBC 4.07 (3.30-5.50) M/uL Hgb 12.8 (12.0-15.0) g/dL Hct 39.4 (36.0-48.0) % MCV 97 (80-98) fL MCH 31 (27-31) pg MCHC 33 (32-36) % Plt Count 679 H (150-400) K/uL Sodium 141 (140-148) mmol/L Potassium 3.7 (3.6-5.2) mmol/L Chloride 104 (100-108) mmol/L Carbon Dioxide 29 (21-32) mmol/L Anion Gap 7.7 (5.0-14.0) mmol/L BUN 15 D (7-18) mg/dL Creatinine 0.8 (0.6-1.0) mg/dL Est Cr Clr Drug Dosing 51.03 mL/min Estimated GFR (MDRD) > 60 (>60) Glucose 85 (74-106) mg/dL Calcium 9.2 (8.5-10.1) mg/dL Troponin I < 0.017 (0.000-0.056) ng/mL Urine Color Urine Appearance Urine pH (4.5-8.0) Ur Specific [place] (1.008-1.030) Urine Protein (NEGATIVE) mg/dL Urine Glucose (UA) (NEGATIVE) mg/dL Urine Ketones (NEGATIVE) mg/dL Urine Occult Blood (NEGATIVE) Urine Nitrite (NEGATIVE) Urine Bilirubin (NEGATIVE) Urine Urobilinogen (NORMAL) mg/dL Ur Leukocyte Esterase (NEGATIVE) Urine RBC (0-5) Urine WBC (0-5) Ur Epithelial Cells Amorphous Sediment Urine Bacteria Urine Mucus 10/26/18 Range/Units 12:07 WBC (4.5-11.0) K/uL RBC (3.30-5.50) M/uL Hgb (12.0-15.0) g/dL Hct (36.0-48.0) % MCV (80-98) fL MCH (27-31) pg MCHC (32-36) % Plt Count (150-400) K/uL Sodium (140-148) mmol/L Potassium (3.6-5.2) mmol/L Chloride (100-108) mmol/L Carbon Dioxide (21-32) mmol/L Anion Gap (5.0-14.0) mmol/L BUN (7-18) mg/dL Creatinine (0.6-1.0) mg/dL Est Cr Clr Drug Dosing mL/min Estimated GFR (MDRD) (>60) Glucose (74-106) mg/dL Calcium (8.5-10.1) mg/dL Troponin I (0.000-0.056) ng/mL Urine Color Yellow Urine Appearance Slightly cloudy Urine pH 6.0 (4.5-8.0) Ur Specific [place] 1.020 (1.008-1.030) Urine Protein 30 H (NEGATIVE) mg/dL Urine Glucose (UA) Normal (NEGATIVE) mg/dL Urine Ketones Negative (NEGATIVE) mg/dL Urine Occult Blood Trace (NEGATIVE) Urine Nitrite Negative (NEGATIVE) Urine Bilirubin Negative (NEGATIVE) Urine Urobilinogen Normal (NORMAL) mg/dL Ur Leukocyte Esterase Large (NEGATIVE) Urine RBC 0-5 (0-5) Urine WBC 10-20 H (0-5) Ur Epithelial Cells Few Amorphous Sediment Moderate Urine Bacteria Many Urine Mucus Moderate Meds: Medications Generic Name Dose Route Start Last Admin Trade Name Freq PRN Reason Stop Dose Admin Lactated Ringer's 1,000 mls @ 1,000 mls/hr 10/26/18 12:21 10/26/18 12:51 Ringers, Lactated IV 10/26/18 13:20 1,000 mls/hr BOLUS ONE Administration Discontinued Medications Generic Name Dose Route Start Last Admin Trade Name Freq PRN Reason Stop Dose Admin Hydrocodone Bitart/Acetaminophen 1 tab 10/26/18 12:10 10/26/18 12:27 [place] 325-5 Mg PO 10/26/18 12:11 1 tab ONETIME ONE Administration Bacitracin 1 dose 10/26/18 12:20 10/26/18 12:27 Bacitracin Oint 1 Gm TOP 10/26/18 12:21 1 dose ONETIME ONE Administration Bisacodyl 10 mg 10/26/18 11:32 10/26/18 12:29 Dulcolax RECTAL 10/26/18 11:33 10 mg ONETIME ONE Administration Cephalexin 500 mg 10/26/18 12:44 10/26/18 12:50 Keflex PO 10/26/18 12:45 500 mg ONETIME ONE Administration Polyethylene Glycol 34 gm 10/26/18 11:32 10/26/18 12:26 Miralax PO 10/26/18 11:33 34 gm ONETIME ONE Administration Departure - Departure Time of Disposition: 14:00 Disposition: Home, Self-Care 01 Condition: Fair Clinical Impression: Fall in elderly patient, Cystitis, Orthostatic hypotension Eyebrow laceration Qualifiers: Encounter type: initial encounter Laterality: left Qualified Code(s): S01.112A - Laceration without foreign body of left eyelid and periocular area, initial encounter Constipation Qualifiers: Constipation type: slow transit constipation Qualified Code(s): K59.01 - Slow transit constipation - Discharge Information *PRESCRIPTION DRUG MONITORING PROGRAM REVIEWED*: No *COPY OF PRESCRIPTION DRUG MONITORING REPORT IN PATIENT ERUM: No Prescriptions: Cephalexin [Keflex] 500 mg PO Q8H #14 capsule Instructions: Constipation, Adult, [id number] Referrals: Leadbetter,Raoul, MD [Primary Care Provider] - Forms: ED Department Discharge Additional Instructions: Take cephalexin every 8 hrs for your presumed UTI. Reduce your furosemide to every other day. Clean your eyebrow wound twice daily with 1/2 water and 1/2 peroxide. Dry. Apply antibiotic ointment. Stitches out in the clinic in 8 days. Continue your other medicines as currently. Check with your provider Wednesday afternoon regarding your urine culture results. Take Miralax once or twice daily to promote regular soft, bowel movements. Get up slowly by sitting with your feet down for a few minutes before attempting to stand. When you do stand up hold on to something for a minute before you begin walking to reduce your risk of falling. - My Orders Last 24 Hours: My Active Orders 10/26/18 11:30 Orthostatic Vital Signs [RC] ASDIRECTED 10/26/18 12:21 Lactated Ringers [Ringers, Lactated] 1,000 ml IV BOLUS 10/26/18 12:43 CULTURE URINE [RM] Stat - Assessment/Plan Last 24 Hours: My Active Orders 10/26/18 11:30 Orthostatic Vital Signs [RC] ASDIRECTED 10/26/18 12:21 Lactated Ringers [Ringers, Lactated] 1,000 ml IV BOLUS 10/26/18 12:43 CULTURE URINE [RM] Stat
[2018-10-26] MEDS ORDERED: Acetaminophen/HYDROcodone 325-5 MG Tab PO ONE (12:10)
[2018-10-26] MEDS ORDERED: Bacitracin Oint 1 GM U/D Packet TOP ONE (12:20)
[2018-10-26] MEDS ORDERED: Lactated Ringers 1,000 ML IV ONE (12:21)
[2018-10-26] MEDS ORDERED: Cephalexin 250 MG Cap PO ONE (12:44)
[2018-10-26 14:23] VITALS: BP 113/66
== END 2018-10-26 14:27 | disposition home or self-care (01) ==
LOC: JP.ED 11:02
DX: S01.112A Laceration without foreign body of left eyelid and periocular area, initial encounter (principal); K59.01 Slow transit constipation; N30.90 Cystitis, unspecified without hematuria; I95.1 Orthostatic hypotension; Z79.82 Long term (current) use of aspirin; Z79.899 Other long term (current) drug therapy; Z88.2 Allergy status to sulfonamides; Z88.1 Allergy status to other antibiotic agents; Z88.6 Allergy status to analgesic agent; Z88.8 Allergy status to other drugs, medicaments and biological substances; W19.XXXA Unspecified fall, initial encounter
CPT/HCPCS: 12011; 36415; 80048; 81001; 84484; 85027; 87086; 96360; 99283; A9270; J7120

== ENCOUNTER 2019-02-04 16:09 | Emergency (ER) | payer MEDICARE, OTHER ==
[2019-02-04] MEDS ORDERED: Sodium Chloride 0.9% 10 ML Syringe FLUSH PRN (16:50)
--- NOTE | 2019-02-04 16:52 | EDM.PDOC ---
ED HPI GENERAL MEDICAL PROBLEM - General Chief Complaint: Gastrointestinal Problem Stated Complaint: HEADACHE,NAUSEA Time Seen by Provider: 02/04/19 16:40 Source of Information: Reports: Patient, Family History Limitations: Reports: No Limitations - History of Present Illness INITIAL COMMENTS - FREE TEXT/NARRATIVE: Alert 74 yo female present to ER during severe headache, nausea and shortness of breath. Patient has felt ill for the last 3-4 days. Patient was evaluated at the clinic 2-3 days ago due to fatigue and history of gastric bypass surgery. Note was reviewed but laboratory studies drawn not available. Patient took tylenol and ibuprofen yesterday without improvement of symptoms. Patient did not take anything for pain today. Patient has had chills but denies fever or sweats. Patient's headache started on the top of her head with no history of headaches in the past. Patient denies neck pain. Patient has had a slight cough and feels short of breath. Patient has not eaten anything today and very little yesterday. Patient was vomiting 3 days ago. Patient denies diarrhea or constipation. Patient present with for evaluation. - Related Data Allergies Allergy/AdvReac Type Severity Reaction Status Date / Time amitriptyline Allergy Cannot Verified 10/26/18 11:16 Remember celecoxib Allergy Cannot Verified 10/26/18 11:16 Remember hydromorphone [From Dilaudid] Allergy Shaking Verified 02/04/19 16:52 lurasidone HCl [From Latuda] Allergy Cannot Verified 10/26/18 11:16 Remember Sulfa (Sulfonamide Allergy Rash Verified 10/26/18 11:16 Antibiotics) tramadol Allergy Itching Verified 10/26/18 11:16 Home Meds: Home Meds Cyanocobalamin (Vitamin B-12) [Vitamin B-12] 1,000 mcg IM ASDIRECTED 11/20/13 [ History] Venlafaxine [Effexor] 100 mg PO BID 11/20/13 [History] Ondansetron [Zofran] 4 mg PO Q8H PRN 12/25/13 [History] Diclofenac Sodium [Voltaren 1% Gel] 2 gram TOP QID 02/12/16 [History] Aspirin [Ecotrin] 325 mg PO DAILY 11/17/17 [History] Furosemide [Lasix] 20 mg PO DAILY 11/17/17 [History] Polyethylene Glycol 3350 [MiraLAX] 17 gm PO BID 11/17/17 [History] LORazepam 0.5 mg PO DAILY 10/08/18 [History] Hydrocodone/Acetaminophen [[place] 5-325 Tablet] 1 each PO Q8H PRN 02/04/19 [ History] Lubiprostone [Amitiza] 1 cap PO BID 02/04/19 [History] Oxybutynin Chloride [Ditropan Xl] 1 tab PO DAILY 02/04/19 [History] Past Medical History HEENT History: Reports: Cataract, Impaired Vision Cardiovascular History: Reports: Other (See Below) Other Cardiovascular History: varicose veins Respiratory History: Reports: None Gastrointestinal History: Reports: Chronic Constipation, GERD Genitourinary History: Reports: Renal Disease, Other (See Below) Other Genitourinary History: sees kidney specialist for function 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 cervical spine instability. left elbow FX Neurological History: Reports: Concussion, Migraines Psychiatric History: Reports: Anxiety, Depression, Panic Attack Other Psychiatric History: insomnia Endocrine/Metabolic History: Reports: Osteopenia Hematologic History: Reports: B12 Deficiency, Other (See Below) Other Hematologic History: spiral cyctosis - hereditary Immunologic History: Reports: None Oncologic (Cancer) History: Reports: None Dermatologic History: Reports: None - Infectious Disease History Infectious Disease History: Reports: Measles - Past Surgical History Head Surgeries/Procedures: Reports: None HEENT Surgical History: Reports: Cataract Surgery, Oral Surgery, Other (See Below) Other HEENT Surgeries/Procedures: implanted teeth Cardiovascular Surgical History: Reports: None GI Surgical History: Reports: Appendectomy, Bariatric Procedure, Cholecystectomy , Colonoscopy, Hernia Repair/Other, Other (See Below) Other GI Surgeries/Procedures: spleenectomy Female Surgical History: Reports: None Endocrine Surgical History: Reports: None Other Neurological Surgeries/Procedures: neck fx with surgery Musculoskeletal Surgical History: Reports: Knee Replacement, Other (See Below) Other Musculoskeletal Surgeries/Procedures:: neck surgery from fallJanuary, Social & Family History - Tobacco Use Smoking Status *Q: Never Smoker - Caffeine Use Caffeine Use: Reports: Coffee Caffeine Use Comment: 2 cups coffee/day - Recreational Drug Use Recreational Drug Use: No - Living Situation & Occupation Living situation: Reports: Occupation: Retired ED ROS GENERAL - Review of Systems Review Of Systems: ROS reveals no pertinent complaints other than HPI. ED EXAM, GENERAL - Physical Exam Exam: See Below (with panic attack) Exam Limited By: No Limitations (fatigued) General Appearance: Alert, WD/WN, Moderate Distress Eye Exam: Bilateral Eye: EOMI, PERRL Ears: Normal External Exam, Normal Canal, Normal TMs, Hearing Loss Nose: Normal Inspection, Normal Mucosa, No Blood Throat/Mouth: Normal Inspection, Normal Lips, Normal Teeth, Normal Gums, Normal Oropharynx, Normal Voice, No Airway Compromise Head: Atraumatic, Normocephalic, Other (No pain to palpation) Neck: Normal Inspection, Supple, Non-Tender, Full Range of Motion Respiratory/Chest: No Respiratory Distress, Lungs Clear, Normal Breath Sounds, No Accessory Muscle Use, Chest Non-Tender. No: Respiratory Distress, Rhonchi, Wheezing, Stridor Cardiovascular: Normal Peripheral Pulses, Regular Rate, Rhythm, No Edema, No Gallop, No JVD, No Murmur, No Rub GI/Abdominal: Normal Bowel Sounds, Soft, Non-Tender (mild diffuse without focal tenderness to palpaiton), No Organomegaly, No Distention, No Abnormal Bruit, No Mass (Female) Exam: Normal External Exam, Normal Speculum Exam, Normal Bimanual Exam Back Exam: Normal Inspection, Full Range of Motion, NT Extremities: Normal Inspection, Normal Range of Motion, Non-Tender, Normal Capillary Refill, No Pedal Edema Neurological: Alert, Oriented, CN II-XII Intact, Normal Cognition, Normal Reflexes, No Motor/Sensory Deficits, Abnormal Gait (too weak to ambulate at time of presentation) Psychiatric: Depressed Mood, Flat Affect Skin Exam: Warm, Dry, Intact, Normal Color, No Rash EKG INTERPRETATION EKG Date: 02/04/19 Time: 19:11 Rhythm: Other (Atrial paced rhythm) Rate (Beats/Min): 101 [place]: Other (poor R wave progression) P-Wave: Present QRS: Normal ST-T: Normal QT: Prolonged (QTc 474) Comparison: Change From Previous EKG Course - Vital Signs Last Recorded V/S: Last Vital Signs Temp 36.6 C 02/04/19 16:41 Pulse 104 H 02/04/19 19:46 Resp 18 02/04/19 19:00 BP 115/62 02/04/19 19:46 Pulse Ox 99 02/04/19 19:46 - Orders/Labs/Meds Orders: Active Orders 24 hr Category Date Time Status Cardiac Monitoring [RC] .As Directed Care 02/04/19 16:51 Active EKG Documentation Completion [RC] ASDIRECTED Care 02/04/19 16:51 Active Peripheral IV Care [RC] . DIRECTED Care 02/04/19 16:51 Active CULTURE BLOOD [BC] Urgent Lab 02/04/19 16:55 Received CULTURE BLOOD [BC] Urgent Lab 02/04/19 17:05 Received Sodium Chloride 0.9% [Normal Saline] 1,000 ml Med 02/04/19 17:15 Active IV ASDIRECTED Sodium Chloride 0.9% [Saline Flush] Med 02/04/19 16:50 Active 10 ml FLUSH ASDIRECTED PRN Blood Culture x2 Reflex Set [OM.PC] Urgent Oth 02/04/19 16:50 Ordered Peripheral IV Insertion Adult [OM.PC] Urgent Oth 02/04/19 16:50 Ordered EKG 12 Lead [EK] Urgent Ther 02/04/19 16:50 Ordered Medication Orders Sodium Chloride (Normal Saline) 1,000 mls @ 500 mls/hr IV ASDIRECTED [place] Last Admin: 02/04/19 17:41 Dose: 500 mls/hr Sodium Chloride (Saline Flush) 10 ml FLUSH ASDIRECTED PRN PRN Reason: Keep Vein Open Last Admin: 02/04/19 17:42 Dose: 10 ml Labs: Laboratory Tests 02/04/19 02/04/19 02/04/19 Range/Units 17:12 17:12 17:12 WBC 15.1 H (4.5-11.0) K/uL RBC 4.42 (3.30-5.50) M/uL Hgb 13.7 (12.0-15.0) g/dL Hct 42.5 (36.0-48.0) % MCV 96 (80-98) fL MCH 31 (27-31) pg MCHC 32 (32-36) % Plt Count 461 H (150-400) K/uL Neut % (Auto) 92 H (36-66) % Lymph % (Auto) 6 L (24-44) % [place] % (Auto) 1 L (2-6) % Eos % (Auto) 1 L (2-4) % Baso % (Auto) 0 (0-1) % Sodium 140 (140-148) mmol/L Potassium 4.0 (3.6-5.2) mmol/L Chloride 105 (100-108) mmol/L Carbon Dioxide 25 (21-32) mmol/L Anion Gap 10.0 (5.0-14.0) mmol/L BUN 20 H (7-18) mg/dL Creatinine 1.0 (0.6-1.0) mg/dL Est Cr Clr Drug Dosing 40.21 mL/min Estimated GFR (MDRD) 54 L (>60) Glucose 102 (74-106) mg/dL Lactic Acid 2.0 (0.4-2.0) mmol/L Calcium 9.0 (8.5-10.1) mg/dL Total Bilirubin (0.2-1.0) mg/dL Direct Bilirubin (0.0-0.2) mg/dL Indirect Bilirubin AST (15-37) U/L ALT (12-78) U/L Alkaline Phosphatase (46-116) U/L C-Reactive Protein 10.97 H (0.0-0.3) mg/dL Total Protein (6.4-8.2) g/dL Albumin (3.4-5.0) g/dL Globulin (2.3-3.5) g/dL Albumin/Globulin Ratio (1.2-2.2) Lipase 224 (73-393) U/L Urine Color (YELLOW) Urine Appearance (CLEAR) Urine pH (5.0-8.0) Ur Specific [place] (1.008-1.030) Urine Protein (NEGATIVE) mg/dL Urine Glucose (UA) (NEGATIVE) mg/dL Urine Ketones (NEGATIVE) mg/dL Urine Occult Blood (NEGATIVE) Urine Nitrite (NEGATIVE) Urine Bilirubin (NEGATIVE) Urine Urobilinogen (0.2-1.0) EU/dL Ur Leukocyte Esterase (NEGATIVE) Urine RBC (0-5) Urine WBC (0-5) Ur Epithelial Cells Amorphous Sediment Urine Bacteria Urine Mucus 02/04/19 02/04/19 Range/Units 17:12 17:57 WBC (4.5-11.0) K/uL RBC (3.30-5.50) M/uL Hgb (12.0-15.0) g/dL Hct (36.0-48.0) % MCV (80-98) fL MCH (27-31) pg MCHC (32-36) % Plt Count (150-400) K/uL Neut % (Auto) (36-66) % Lymph % (Auto) (24-44) % [place] % (Auto) (2-6) % Eos % (Auto) (2-4) % Baso % (Auto) (0-1) % Sodium (140-148) mmol/L Potassium (3.6-5.2) mmol/L Chloride (100-108) mmol/L Carbon Dioxide (21-32) mmol/L Anion Gap (5.0-14.0) mmol/L BUN (7-18) mg/dL Creatinine (0.6-1.0) mg/dL Est Cr Clr Drug Dosing mL/min Estimated GFR (MDRD) (>60) Glucose (74-106) mg/dL Lactic Acid (0.4-2.0) mmol/L Calcium (8.5-10.1) mg/dL Total Bilirubin 0.5 D (0.2-1.0) mg/dL Direct Bilirubin 0.23 H (0.0-0.2) mg/dL Indirect Bilirubin 0.27 AST 22 (15-37) U/L ALT 16 (12-78) U/L Alkaline Phosphatase 160 H (46-116) U/L C-Reactive Protein (0.0-0.3) mg/dL Total Protein 6.8 (6.4-8.2) g/dL Albumin 3.2 L (3.4-5.0) g/dL Globulin 3.6 H (2.3-3.5) g/dL Albumin/Globulin Ratio 0.9 L (1.2-2.2) Lipase (73-393) U/L Urine Color Yellow (YELLOW) Urine Appearance Cloudy A (CLEAR) Urine pH 5.5 (5.0-8.0) Ur Specific [place] 1.025 (1.008-1.030) Urine Protein Trace H (NEGATIVE) mg/dL Urine Glucose (UA) Negative (NEGATIVE) mg/dL Urine Ketones Negative (NEGATIVE) mg/dL Urine Occult Blood Negative (NEGATIVE) Urine Nitrite Negative (NEGATIVE) Urine Bilirubin Small H (NEGATIVE) Urine Urobilinogen 2.0 H (0.2-1.0) EU/dL Ur Leukocyte Esterase Negative (NEGATIVE) Urine RBC 0-5 (0-5) Urine WBC 5-10 H (0-5) Ur Epithelial Cells Moderate Amorphous Sediment Not seen Urine Bacteria Moderate Urine Mucus Not seen Meds: Medications Generic Name Dose Route Start Last Admin Trade Name Freq PRN Reason Stop Dose Admin Sodium Chloride 1,000 mls @ 500 mls/hr 02/04/19 17:15 02/04/19 17:41 Normal Saline IV 500 mls/hr ASDIRECTED [place] Administration Sodium Chloride 10 ml 02/04/19 16:50 02/04/19 17:42 Saline Flush FLUSH 10 ml ASDIRECTED PRN Administration Keep Vein Open Discontinued Medications Generic Name Dose Route Start Last Admin Trade Name Freq PRN Reason Stop Dose Admin Fentanyl 50 mcg 02/04/19 17:01 02/04/19 17:40 Sublimaze IVPUSH 02/04/19 17:02 50 mcg ONETIME ONE Administration Lorazepam 1 mg 02/04/19 20:43 02/04/19 20:58 Ativan IVPUSH 02/04/19 20:44 1 mg ONETIME ONE Administration Metoclopramide HCl 5 mg 02/04/19 17:01 02/04/19 17:38 Reglan IV 02/04/19 17:02 5 mg ONETIME ONE Administration - Radiology Interpretation Free Text/Narrative:: CXR PA/LAT: No acute cardiopulmonary findings noted per Radiology. CT Head: No acute intracranial abnormality without acute concerning findings to explain headache today. - Re-Assessments/Exams Free Text/Narrative Re-Assessment/Exam: Patient was updated regarding CT findings and CXR. Patient's pain was much improved after 1L NS, reglan and Fentanyl. Patient's WBC and CRP elevated without focal bacterial concerns. UA shows dehydration and not a clean sample, UC considered but not performed due to contaminated. Patient is now hungry. I reviewed her chart and seems to have some depression concerns and very little interest in activity. Patient will be discharged home with close follow-up. 02/04/19 19:31 Patient tearful, crying fit due to panic attack. Patient has known history of anxiety, depression with panic attacks. Patient has had tearful outburst over the last 2 days. Patient has had little interest in life and activity. I mention that her depression, anxiety are getting away form her and talking to her PCP about counseling and medication would be recommended before the duration of sun light hours get less and depression with seasonal effective symptoms get worse. 02/04/19 20:50 Departure - Departure Time of Disposition: 21:30 Disposition: Home, Self-Care 01 Clinical Impression: Head ache, Dehydration, Influenza-like illness, Lack of interest - Discharge Information Instructions: General Headache Without Cause, Supporting Someone With Depression, Living With Depression, Persistent Depressive Disorder, Adult, Dehydration, Elderly, Panic Attack, Living With Anxiety, Rehydration, Elderly, Dehydration, Adult Referrals: Raoul Gann MD [Primary Care Provider] - Forms: ED Department Discharge Additional Instructions: 1. Zofran 4mg ODT as needed every 6 hours for nausea and vomiting to prevent dehydration. 2. Tylenol 500-1000mg every 6 hours for mild pain and headache. 3. Ibuprofen 600mg every 6 hours for fever, pain and inflammation/headache. 4. Increased fluid intake. Call PCP for recheck nest week to ensure improving and discuss lack of interest in activity of life. 5. Concern regarding anxiety, depression and lack of interest in getting out of bed. - Problem List & Annotations (1) Dehydration SNOMED Code(s): 49259522 Code(s): E86.0 - DEHYDRATION Status: Acute Current Visit: Yes (2) Head ache SNOMED Code(s): 61149759 Code(s): R51 - HEADACHE Status: Acute Current Visit: Yes (3) Influenza-like illness SNOMED Code(s): 38812641 Code(s): R69 - ILLNESS, UNSPECIFIED Status: Acute Current Visit: Yes (4) Lack of interest SNOMED Code(s): 524654646 Code(s): R68.89 - OTHER GENERAL SYMPTOMS AND SIGNS Status: Acute Current Visit: Yes - My Orders Last 24 Hours: My Active Orders 02/04/19 16:50 Sodium Chloride 0.9% [Saline Flush] 10 ml FLUSH ASDIRECTED PRN Blood Culture x2 Reflex Set [OM.PC] Urgent Peripheral IV Insertion Adult [OM.PC] Urgent EKG 12 Lead [EK] Urgent 02/04/19 16:51 Cardiac Monitoring [RC] .As Directed EKG Documentation Completion [RC] ASDIRECTED Peripheral IV Care [RC] . DIRECTED 02/04/19 16:55 CULTURE BLOOD [BC] Urgent 02/04/19 17:05 CULTURE BLOOD [BC] Urgent 02/04/19 17:15 Sodium Chloride 0.9% [Normal Saline] 1,000 ml IV ASDIRECTED - Assessment/Plan Last 24 Hours: My Active Orders 02/04/19 16:50 Sodium Chloride 0.9% [Saline Flush] 10 ml FLUSH ASDIRECTED PRN Blood Culture x2 Reflex Set [OM.PC] Urgent Peripheral IV Insertion Adult [OM.PC] Urgent EKG 12 Lead [EK] Urgent 02/04/19 16:51 Cardiac Monitoring [RC] .As Directed EKG Documentation Completion [RC] ASDIRECTED Peripheral IV Care [RC] . DIRECTED 02/04/19 16:55 CULTURE BLOOD [BC] Urgent 02/04/19 17:05 CULTURE BLOOD [BC] Urgent 02/04/19 17:15 Sodium Chloride 0.9% [Normal Saline] 1,000 ml IV ASDIRECTED
[2019-02-04] MEDS ORDERED: Metoclopramide 10 MG/2 ML SDV IV ONE (17:01)
[2019-02-04] MEDS ORDERED: fentaNYL 100 MCG/2 ML SDV IVPUSH ONE (17:01)
[2019-02-04] MEDS ORDERED: Sodium Chloride 0.9% 1,000 ML IV SCH (17:15)
--- NOTE | 2019-02-04 17:42 | CRLCR ---
INDICATION: Hypoxia TECHNIQUE: Chest radiograph 2 views COMPARISON: 11/16/17 FINDINGS: Mediastinum: The mediastinum is normal in appearance. The heart silhouette is normal in size and morphology. Lung: Both lungs are unremarkable in appearance. No sign of pleural effusion seen. No pneumothorax is identified. Bone and Soft tissue: Unremarkable for age. Compression deformities with methylmethracrylate noted in the lumbar spine. IMPRESSION: 1. No acute cardiopulmonary disease is seen. Dictated by: Mane Law MD @ 02/04/2019 17:41:35 (Electronically Signed)
--- NOTE | 2019-02-04 17:46 | CRLCT ---
INDICATION: Headache for 4 days TECHNIQUE: CT Head without i.v. contrast. COMPARISON: None FINDINGS: CSF space: Unremarkable for age. Brain: A small chronic lacunar infarct is present within the right basal ganglia. Moderate patchy regions of low attenuation are present in the periventricular white matter, likely due to chronic microvascular ischemic changes. No mass-effect or midline shift is seen. Mild diffuse cortical atrophy is noted. Calvarium: Mild mucosal thickening is seen in the right ethmoid air cells. The mastoid air cells are clear. The patient is status post bilateral cataract removal. The calvarium is unremarkable in appearance with no fractures identified. IMPRESSION: 1. No evidence of acute infarction, intracranial hemorrhage, or mass-effect seen. Dictated by Mane Law MD @ 02/04/2019 5:45:50 PM Please note that all CT scans at this facility use dose modulation, iterative reconstruction, and/or weight-based dosing when appropriate to reduce radiation dose to as low as reasonably achievable. Dictated by: Mane Law MD @ 02/04/2019 17:45:53 (Electronically Signed)
[2019-02-04 19:47] VITALS: BP 115/62; PULSE 104
[2019-02-04] MEDS ORDERED: LORazepam 2 MG/ML SDV IVPUSH ONE (20:43)
== END 2019-02-04 21:41 | disposition home or self-care (01) ==
LOC: JP.ED 16:09
DX: E86.0 Dehydration (principal); J11.1 Influenza due to unidentified influenza virus with other respiratory manifestations; R27.9 Unspecified lack of coordination; K21.9 Gastro-esophageal reflux disease without esophagitis; F41.9 Anxiety disorder, unspecified; F32.9 Major depressive disorder, single episode, unspecified; Z98.84 Bariatric surgery status; Z88.2 Allergy status to sulfonamides; Z88.8 Allergy status to other drugs, medicaments and biological substances; Z88.6 Allergy status to analgesic agent; Z88.5 Allergy status to narcotic agent; Z79.82 Long term (current) use of aspirin; Z79.899 Other long term (current) drug therapy
CPT/HCPCS: 36415; 70450; 71046; 80048; 80076; 81001; 83605; 83690; 85025; 86140; 87040; 87804; 93005; 96361; 96374; 96375; 99285; J2060; J2765; J3010; J7030; 99283

== ENCOUNTER 2019-02-13 07:29 | Day surgery (SDC) | payer MEDICARE, OTHER ==
[2019-02-13] MEDS ORDERED: Lidocaine 1% with EPINEPHrine 1:100,000 50 ML MDV ONE (07:38)
[2019-02-13] MEDS ORDERED: Bacitracin Oint 1 GM U/D Packet ONE (07:38)
[2019-02-13] MEDS ORDERED: Bupivacaine 0.5% 50 ML MDV ONE (07:38)
[2019-02-13] MEDS ORDERED: Dextrose 5%-Lactated Ringers 1,000 ML IV SCH (07:45)
[2019-02-13] MEDS ORDERED: fentaNYL 100 MCG/2 ML SDV ONE (10:07)
[2019-02-13] MEDS ORDERED: Midazolam 1 MG/ML 2 ML SDV ONE (10:07)
[2019-02-13] MEDS ORDERED: Propofol 200 MG/20 ML SDV ONE (10:07)
[2019-02-13 12:19] VITALS: BP 143/78; PULSE 58
--- NOTE | 2019-02-14 08:49 | OR ---
DATE OF PROCEDURE: 02/13/2019 SURGEON: Iftikhar Sims MD PREOPERATIVE DIAGNOSIS: Bilateral temporal headaches, markedly elevated C-reactive protein at 10.97, and normal erythrocyte sedimentation rate at 12. POSTOPERATIVE DIAGNOSIS: Bilateral temporal headaches, markedly elevated C-reactive protein at 10.97, and normal erythrocyte sedimentation rate at 12. PROCEDURE: Bilateral temporal artery biopsies. ANESTHESIA: IV anesthesia with monitored anesthesia care. INDICATION: This 74-year-old white female complained of bilateral temporal headaches. She underwent a C-reactive protein study, which was markedly elevated at 10.97, of interest also, though her sedimentation rate was normal at 12. She is admitted for bilateral temporal artery biopsies. I counseled her for this, including risks and alternatives, and she gave her informed consent to proceed. DESCRIPTION OF PROCEDURE: After adequate IV anesthesia was obtained, we identified with the Doppler the course of the temporal arteries bilaterally. The one on the right was very weak. I was concerned that it may have thrombosed. The one on the left had a very strong pulse. We started on the left side. The left side of her face was prepped and draped in the usual sterile fashion. Lidocaine 1% with epinephrine in a 50:50 mix with 0.5% Marcaine was infiltrated along the course of the left temporal artery. An incision was made in the preauricular area and coursed superiorly following the artery. The artery was dissected free. A segment of about 4 cm in length was removed with the artery ligated with 3-0 Vicryl ties. All looked well. The skin incision was closed with a subcuticular stitch of 4-0 Vicryl. Attention was then directed to the right side. The right side of her face was prepped and draped in the usual sterile fashion. Lidocaine 1% with epinephrine in a 50:50 mix with 0.5% Marcaine was infiltrated about the course of the temporal artery, and once again, there was a very faint signal. We made an incision in the preauricular area and found the artery. It was interesting to note that the artery we thought by the weak pulse coursed anteriorly; however, it seemed to go superiorly and then disappeared in a nest of arteries, which were very small. A segment of artery almost 4 cm in length was dissected free, excised, and sent to the laboratory with hemostasis obtained with 3-0 Vicryl ties. This skin incision was then closed with a subcuticular stitch of 4-0 Vicryl. Dermabond was applied to both incisions. The patient tolerated the procedure well and was brought to the recovery room in good condition. She has started her prednisone. Iftikhar Sims MD /[id number]
== END 2019-02-13 12:44 | disposition home or self-care (01) ==
LOC: JP.SDS 07:29
PROVIDERS: ATTEND Surgery
DX: I70.8 Atherosclerosis of other arteries (principal); R79.82 Elevated C-reactive protein (CRP); F41.9 Anxiety disorder, unspecified; F32.9 Major depressive disorder, single episode, unspecified; N18.9 Chronic kidney disease, unspecified; Z98.84 Bariatric surgery status
CPT/HCPCS: 37609; J2250; J2704; J3010; J3490; J7042; 88305; 88313

== ENCOUNTER 2019-04-25 13:45 | Emergency (ER) | payer MEDICARE, OTHER ==
[2019-04-25] MEDS ORDERED: LORazepam 0.5 MG Tab PO ONE (15:08)
--- NOTE | 2019-04-25 15:09 | EDM.PDOC ---
ED HPI GENERAL MEDICAL PROBLEM - General Chief Complaint: General Stated Complaint: LOW BLOOD SUGARS Time Seen by Provider: 04/25/19 15:01 Source of Information: Reports: Patient, Family, RN Notes Reviewed History Limitations: Reports: No Limitations - History of Present Illness INITIAL COMMENTS - FREE TEXT/NARRATIVE: 74-year-old female presents emergency department a complaint of weakness and low blood sugars, she currently has a continuous blood glucose monitor she states that over the last 2-week. Her blood sugars have been less than 50, 50% of the time, she was recently given an injection of Trulicity 4 days prior. She states she feels weak and has no energy and sleeps all the time - Related Data Allergies Allergy/AdvReac Type Severity Reaction Status Date / Time amitriptyline Allergy Cannot Verified 04/25/19 14:15 Remember celecoxib Allergy Cannot Verified 04/25/19 14:15 Remember hydromorphone [From Dilaudid] Allergy Shaking Verified 04/25/19 14:15 lurasidone HCl [From Latuda] Allergy Cannot Verified 04/25/19 14:15 Remember Sulfa (Sulfonamide Allergy Rash Verified 04/25/19 14:15 Antibiotics) tramadol Allergy Itching Verified 04/25/19 14:15 Home Meds: Home Meds Cyanocobalamin (Vitamin B-12) [Vitamin B-12] 1,000 mcg IM ASDIRECTED 11/20/13 [ History] Venlafaxine [Effexor] 100 mg PO BID 11/20/13 [History] Ondansetron [Zofran] 4 mg PO Q8H PRN 12/25/13 [History] Furosemide [Lasix] 20 mg PO DAILY PRN 11/17/17 [History] Polyethylene Glycol 3350 [MiraLAX] 17 gm PO BID 11/17/17 [History] LORazepam 0.5 mg PO DAILY 10/08/18 [History] Lubiprostone [Amitiza] 1 cap PO BID 02/04/19 [History] Acetaminophen [Tylenol Extra Strength] 1,000 mg PO Q4H PRN 02/13/19 [History] Dulaglutide [Trulicity] 0.75 mg INJECT ASDIRECTED 04/25/19 [History] hydrOXYzine HCl [hydrOXYzine] 25 mg PO BID 04/25/19 [History] Past Medical History HEENT History: Reports: Cataract, Impaired Vision Cardiovascular History: Reports: Other (See Below) Other Cardiovascular History: varicose veins Gastrointestinal History: Reports: Chronic Constipation, GERD Genitourinary History: Reports: Renal Disease, Other (See Below) Other Genitourinary History: sees kidney specialist for function 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 cervical spine instability. left elbow FX Neurological History: Reports: Concussion, Migraines Psychiatric History: Reports: Anxiety, Depression, Panic Attack Other Psychiatric History: insomnia Endocrine/Metabolic History: Reports: Osteopenia Hematologic History: Reports: B12 Deficiency, Other (See Below) Other Hematologic History: spiral cyctosis - hereditary Immunologic History: Reports: None Oncologic (Cancer) History: Reports: None Dermatologic History: Reports: None - Infectious Disease History Infectious Disease History: Reports: Measles - Past Surgical History Head Surgeries/Procedures: Reports: None HEENT Surgical History: Reports: Cataract Surgery, Oral Surgery, Other (See Below) Other HEENT Surgeries/Procedures: implanted teeth Cardiovascular Surgical History: Reports: None Respiratory Surgical History: Reports: None GI Surgical History: Reports: Appendectomy, Bariatric Procedure, Cholecystectomy , Colonoscopy, Hernia Repair/Other, Other (See Below) Other GI Surgeries/Procedures: spleenectomy Female Surgical History: Reports: None Endocrine Surgical History: Reports: None Neurological Surgical History: Reports: Other (See Below) Other Neurological Surgeries/Procedures: neck fx with surgery Musculoskeletal Surgical History: Reports: Knee Replacement, Other (See Below) Other Musculoskeletal Surgeries/Procedures:: neck surgery from fallJanuary, Oncologic Surgical History: Reports: None Dermatological Surgical History: Reports: None Social & Family History - Family History Family Medical History: Noncontributory - Tobacco Use Smoking Status *Q: Never Smoker - Caffeine Use Caffeine Use: Reports: Coffee Caffeine Use Comment: 2 cups coffee/day - Recreational Drug Use Recreational Drug Use: No - Living Situation & Occupation Living situation: Reports: Occupation: Retired ED ROS GENERAL - Review of Systems Review Of Systems: See Below Constitutional: Reports: Weakness, Fatigue HEENT: Reports: No Symptoms Respiratory: Reports: No Symptoms Cardiovascular: Reports: No Symptoms Endocrine: Reports: Low Glucose GI/Abdominal: Reports: No Symptoms : Reports: No Symptoms Musculoskeletal: Reports: No Symptoms ED EXAM, GENERAL - Physical Exam Exam: See Below Exam Limited By: No Limitations General Appearance: Alert, Anxious Respiratory/Chest: No Respiratory Distress, Lungs Clear, Normal Breath Sounds, No Accessory Muscle Use, Chest Non-Tender Cardiovascular: Regular Rate, Rhythm, No Murmur GI/Abdominal: Soft, Non-Tender Course - Vital Signs Last Recorded V/S: Last Vital Signs Temp 97.3 F 04/25/19 14:10 Pulse 70 04/25/19 17:13 Resp 16 04/25/19 14:10 BP 111/61 04/25/19 17:13 Pulse Ox 98 04/25/19 16:10 - Orders/Labs/Meds Labs: Laboratory Tests 04/25/19 04/25/19 04/25/19 Range/Units 15:11 15:11 15:11 WBC 7.2 (4.5-11.0) K/uL RBC 3.77 (3.30-5.50) M/uL Hgb 11.9 L (12.0-15.0) g/dL Hct 38.3 (36.0-48.0) % MCV 102 H (80-98) fL MCH 32 H (27-31) pg MCHC 31 L (32-36) % Plt Count 490 H (150-400) K/uL Neut % (Auto) 65 (36-66) % Lymph % (Auto) 22 L (24-44) % Robertson % (Auto) 11 H (2-6) % Eos % (Auto) 1 L (2-4) % Baso % (Auto) 1 (0-1) % Sodium 140 (140-148) mmol/L Potassium 4.9 (3.6-5.2) mmol/L Chloride 107 (100-108) mmol/L Carbon Dioxide 27 (21-32) mmol/L Anion Gap 5.8 (5.0-14.0) mmol/L BUN 22 H (7-18) mg/dL Creatinine 0.9 (0.6-1.0) mg/dL Est Cr Clr Drug Dosing 44.68 mL/min Estimated GFR (MDRD) > 60 (>60) Glucose 85 (74-106) mg/dL Hemoglobin A1c (4.5-6.2) % Lactic Acid 1.0 (0.4-2.0) mmol/L Calcium 8.4 L (8.5-10.1) mg/dL Total Bilirubin 0.2 D (0.2-1.0) mg/dL AST 17 (15-37) U/L ALT 17 (12-78) U/L Alkaline Phosphatase 98 (46-116) U/L Troponin I < 0.017 (0.000-0.056) ng/mL Total Protein 6.3 L (6.4-8.2) g/dL Albumin 3.1 L (3.4-5.0) g/dL Globulin 3.2 (2.3-3.5) g/dL Albumin/Globulin Ratio 1.0 L (1.2-2.2) Urine Color (YELLOW) Urine Appearance (CLEAR) Urine pH (5.0-8.0) Ur Specific [place] (1.008-1.030) Urine Protein (NEGATIVE) mg/dL Urine Glucose (UA) (NEGATIVE) mg/dL Urine Ketones (NEGATIVE) mg/dL Urine Occult Blood (NEGATIVE) Urine Nitrite (NEGATIVE) Urine Bilirubin (NEGATIVE) Urine Urobilinogen (0.2-1.0) EU/dL Ur Leukocyte Esterase (NEGATIVE) Urine RBC (0-5) Urine WBC (0-5) Ur Epithelial Cells Amorphous Sediment Urine Bacteria Urine Mucus 04/25/19 04/25/19 Range/Units 15:11 16:01 WBC (4.5-11.0) K/uL RBC (3.30-5.50) M/uL Hgb (12.0-15.0) g/dL Hct (36.0-48.0) % MCV (80-98) fL MCH (27-31) pg MCHC (32-36) % Plt Count (150-400) K/uL Neut % (Auto) (36-66) % Lymph % (Auto) (24-44) % Robertson % (Auto) (2-6) % Eos % (Auto) (2-4) % Baso % (Auto) (0-1) % Sodium (140-148) mmol/L Potassium (3.6-5.2) mmol/L Chloride (100-108) mmol/L Carbon Dioxide (21-32) mmol/L Anion Gap (5.0-14.0) mmol/L BUN (7-18) mg/dL Creatinine (0.6-1.0) mg/dL Est Cr Clr Drug Dosing mL/min Estimated GFR (MDRD) (>60) Glucose (74-106) mg/dL Hemoglobin A1c 4.8 (4.5-6.2) % Lactic Acid (0.4-2.0) mmol/L Calcium (8.5-10.1) mg/dL Total Bilirubin (0.2-1.0) mg/dL AST (15-37) U/L ALT (12-78) U/L Alkaline Phosphatase (46-116) U/L Troponin I (0.000-0.056) ng/mL Total Protein (6.4-8.2) g/dL Albumin (3.4-5.0) g/dL Globulin (2.3-3.5) g/dL Albumin/Globulin Ratio (1.2-2.2) Urine Color Yellow (YELLOW) Urine Appearance Slightly cloudy A (CLEAR) Urine pH 5.5 (5.0-8.0) Ur Specific [place] 1.020 (1.008-1.030) Urine Protein Negative (NEGATIVE) mg/dL Urine Glucose (UA) Negative (NEGATIVE) mg/dL Urine Ketones Negative (NEGATIVE) mg/dL Urine Occult Blood Negative (NEGATIVE) Urine Nitrite Negative (NEGATIVE) Urine Bilirubin Negative (NEGATIVE) Urine Urobilinogen 0.2 (0.2-1.0) EU/dL Ur Leukocyte Esterase Negative (NEGATIVE) Urine RBC 0-5 (0-5) Urine WBC 0-5 (0-5) Ur Epithelial Cells Rare Amorphous Sediment Not seen Urine Bacteria Rare Urine Mucus Not seen Meds: Medications Discontinued Medications Generic Name Dose Route Start Last Admin Trade Name Freq PRN Reason Stop Dose Admin Lorazepam 0.5 mg 04/25/19 15:08 04/25/19 15:16 Ativan PO 04/25/19 15:09 0.5 mg ONETIME ONE Administration Departure - Departure Time of Disposition: 17:17 Disposition: Home, Self-Care 01 Condition: Fair Clinical Impression: Weakness - Discharge Information Referrals: Raoul Gann MD [Primary Care Provider] - Forms: ED Department Discharge Additional Instructions: Please call to the [facility] in the morning for an appointment time with Carol Zhao Sepsis Event Note - Evaluation Sepsis Screening Result: No Definite Risk - Focused Exam Vital Signs: Vital Signs Temp Pulse Resp BP Pulse Ox 04/25/19 17:13 70 111/61 04/25/19 16:10 67 102/58 L 98 04/25/19 15:11 83 122/78 99 04/25/19 14:10 97.3 F 73 16 117/64 98 04/25/19 14:08 97.3 F 73 16 117/64 98 Date Exam was Performed: 04/25/19 Time Exam was Performed: 17:15 - Assessment/Plan Plan: Assessment Acuity = chronic Site and laterality = hypoglycemia complicated the patient with gastric bypass Etiology = unknown Manifestations = none Location of injury = Home Lab values = CBC, CMP, urinalysis unremarkable apart and was negative blood sugar at 85 hemoglobin A1c 4.8 Plan Call discussed case with Dr. Marroquin at 1645 states he has used Trulicity in the past to help control high sugar spikes without causing sugar spikes to go any lower. However she does state that she started to feel worse after the Trulicity was given. I am to set up a consultation with the gastric bypass team for this week This note was dictated using [employer] voice recognition software please call with any questions on syntax or grammar.
[2019-04-25 16:16] LABS: HEMOGLOBIN A1C 4.8 % (4.5-6.2)
[2019-04-25 17:13] VITALS: BP 111/61; PULSE 70
== END 2019-04-25 17:47 | disposition home or self-care (01) ==
LOC: JP.ED 13:45
DX: R53.1 Weakness (principal); E16.1 Other hypoglycemia; K21.9 Gastro-esophageal reflux disease without esophagitis; F41.9 Anxiety disorder, unspecified; F32.9 Major depressive disorder, single episode, unspecified; Z79.899 Other long term (current) drug therapy; Z98.0 Intestinal bypass and anastomosis status; Z88.2 Allergy status to sulfonamides; Z88.6 Allergy status to analgesic agent; Z88.8 Allergy status to other drugs, medicaments and biological substances
CPT/HCPCS: 36415; 80053; 81001; 83036; 83605; 84484; 85025; 99284; A9270

== ENCOUNTER 2019-08-22 16:33 | Emergency (ER) | payer MEDICARE, OTHER ==
[2019-08-22 17:15] VITALS: BP 116/72
[2019-08-22 17:56] VITALS: PULSE 63
--- NOTE | 2019-08-22 19:22 | EDM.PDOC ---
ED HPI GENERAL MEDICAL PROBLEM - General Chief Complaint: Gastrointestinal Problem Stated Complaint: CONSTIPATED Time Seen by Provider: 08/22/19 18:20 Source of Information: Reports: Patient, Family History Limitations: Reports: No Limitations - History of Present Illness INITIAL COMMENTS - FREE TEXT/NARRATIVE: 74-year-old female concerned she has not had a bowel movement and 2 weeks. She had some left lower quadrant pain 2 weeks ago, that resolved but now she has not had a bowel movement in 2 weeks. She does not feel distended or pain, but she did have 1 emesis today. She has done several enemas with little results. No fevers or chills. Onset: Gradual Duration: Week(s): Associated Symptoms: Reports: No Other Symptoms (Has chronic pain syndromes), Nausea/Vomiting (One episode of vomiting today currently not nauseous). Denies : Fever/Chills - Related Data Allergies Allergy/AdvReac Type Severity Reaction Status Date / Time amitriptyline Allergy Cannot Verified 08/22/19 18:06 Remember celecoxib Allergy Cannot Verified 08/22/19 18:06 Remember hydromorphone [From Dilaudid] Allergy Shaking Verified 08/22/19 18:06 lurasidone HCl [From Latuda] Allergy Cannot Verified 08/22/19 18:06 Remember Sulfa (Sulfonamide Allergy Rash Verified 08/22/19 18:06 Antibiotics) tramadol Allergy Itching Verified 08/22/19 18:06 Home Meds: Home Meds Cyanocobalamin (Vitamin B-12) [Vitamin B-12] 1,000 mcg IM ASDIRECTED 11/20/13 [ History] Venlafaxine [Effexor] 100 mg PO BID 11/20/13 [History] Ondansetron [Zofran] 4 mg PO Q8H PRN 12/25/13 [History] Furosemide [Lasix] 20 mg PO DAILY PRN 11/17/17 [History] Polyethylene Glycol 3350 [MiraLAX] 17 gm PO BID 11/17/17 [History] LORazepam 0.5 mg PO DAILY 10/08/18 [History] Lubiprostone [Amitiza] 1 cap PO BID 02/04/19 [History] Acetaminophen [Tylenol Extra Strength] 1,000 mg PO Q4H PRN 02/13/19 [History] hydrOXYzine HCL [hydrOXYzine] 25 mg PO BID 04/25/19 [History] Past Medical History HEENT History: Reports: Cataract, Impaired Vision Cardiovascular History: Reports: Other (See Below) Other Cardiovascular History: varicose veins Respiratory History: Reports: None Gastrointestinal History: Reports: Chronic Constipation, GERD Genitourinary History: Reports: Renal Disease, Other (See Below) Other Genitourinary History: sees kidney specialist for function 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 cervical spine instability. left elbow FX Neurological History: Reports: Concussion, Migraines Psychiatric History: Reports: Anxiety, Depression, Panic Attack Other Psychiatric History: insomnia Endocrine/Metabolic History: Reports: Osteopenia, Other (See Below) Other Endocrine/Metabolic History: inherited spirocytosis Hematologic History: Reports: B12 Deficiency, Other (See Below) Other Hematologic History: spiral cyctosis - hereditary Immunologic History: Reports: None Oncologic (Cancer) History: Reports: None Dermatologic History: Reports: None - Infectious Disease History Infectious Disease History: Reports: Measles - Past Surgical History Head Surgeries/Procedures: Reports: None HEENT Surgical History: Reports: Cataract Surgery, Oral Surgery, Other (See Below) Other HEENT Surgeries/Procedures: implanted teeth Cardiovascular Surgical History: Reports: None Respiratory Surgical History: Reports: None GI Surgical History: Reports: Appendectomy, Bariatric Procedure, Cholecystectomy , Colonoscopy, Hernia Repair/Other, Other (See Below) Other GI Surgeries/Procedures: spleenectomy Female Surgical History: Reports: None Endocrine Surgical History: Reports: None Neurological Surgical History: Reports: Other (See Below) Other Neurological Surgeries/Procedures: neck fx with surgery Musculoskeletal Surgical History: Reports: Knee Replacement, Other (See Below) Other Musculoskeletal Surgeries/Procedures:: neck surgery from fallJanuary, Oncologic Surgical History: Reports: None Dermatological Surgical History: Reports: None Social & Family History - Family History Family Medical History: Noncontributory - Tobacco Use Smoking Status *Q: Never Smoker Second Hand Smoke Exposure: No - Caffeine Use Caffeine Use: Reports: Coffee Caffeine Use Comment: 2 cups coffee/day - Recreational Drug Use Recreational Drug Use: No - Living Situation & Occupation Living situation: Reports: Occupation: Retired ED ROS GENERAL - Review of Systems Review Of Systems: See Below Constitutional: Denies: Fever, Chills, Decreased Appetite HEENT: Reports: No Symptoms Respiratory: Denies: Shortness of Breath Cardiovascular: Denies: Chest Pain GI/Abdominal: Reports: Abdominal Pain (2 weeks ago, none for the past 2 weeks), Constipation, Vomiting (Vomited once today) Skin: Reports: No Symptoms Neurological: Denies: Dizziness, Headache ED EXAM, GI/ABD - Physical Exam Exam: See Below Exam Limited By: No Limitations General Appearance: Alert, No Apparent Distress Eyes: Bilateral: Normal Appearance Respiratory/Chest: No Respiratory Distress GI/Abdominal Exam: Normal Bowel Sounds, Soft, Non-Tender Rectal (Female) Exam: Normal Exam (Rectal exam reveals a completely empty rectum ) Extremities: Normal Inspection Neurological: Alert, Oriented Course - Vital Signs Last Recorded V/S: Last Vital Signs Temp 97.5 F 08/22/19 17:54 Pulse 63 08/22/19 17:54 Resp 18 08/22/19 17:54 BP 116/72 08/22/19 17:54 Pulse Ox 97 08/22/19 17:14 - Orders/Labs/Meds Meds: Medications Discontinued Medications Generic Name Dose Route Start Last Admin Trade Name Danyell PRN Reason Stop Dose Admin Magnesium Citrate 296 ml 08/22/19 19:58 08/22/19 20:14 Citrate Of Magnesia PO 08/22/19 19:59 296 ml ONETIME ONE Administration - Re-Assessments/Exams Free Text/Narrative Re-Assessment/Exam: 08/22/19 19:[address] scan without contrast was obtained of the abdomen and pelvis due to her many surgeries. 08/22/19 19:57 Impression: Moderate distention of the ascending and transverse colon with prominent fecal material, suggesting constipation. The descending and rectosigmoid colon are nondistended. No evidence of bowel obstruction. Above findings on the CT. I recommended a course of mag citrate along with MiraLAX for the next several days. She can return if worsening. Departure - Departure Time of Disposition: 20:15 Disposition: Home, Self-Care 01 Clinical Impression: Constipation Qualifiers: Constipation type: slow transit constipation Qualified Code(s): K59.01 - Slow transit constipation - Discharge Information Instructions: Constipation, Adult Referrals: Raoul Gann MD [Primary Care Provider] - Forms: ED Department Discharge Care Plan Goals: Use mag citrate as directed on the bottle, along with MiraLAX for extra benefit. Drink lots of water, and return in 2 to 3 days if not improving satisfactorily. Return sooner if worsening such as increased pain or fever. Sepsis Event Note - Evaluation Sepsis Screening Result: No Definite Risk - Focused Exam Vital Signs: Vital Signs Temp Pulse Resp BP Pulse Ox 08/22/19 17:54 97.5 F 63 18 116/72 08/22/19 17:14 97.1 F 69 16 116/72 97 Date Exam was Performed: 08/22/19 Time Exam was Performed: 21:04
--- NOTE | 2019-08-22 19:53 | CRLCT ---
Indication: Nausea, vomiting, no bowel movement x2 weeks Technique: Nonenhanced axial CT imaging through the abdomen and pelvis. Sagittal and coronal reconstructions are provided. Comparison: CT abdomen pelvis with contrast 06/2016 Findings: The descending and rectosigmoid colon are nondistended. There is moderate distention of the ascending and transverse colon with prominent fecal material. And there are no abnormally distended loops of small bowel. There is no free intraperitoneal fluid or air. Gastric bypass changes are again noted. There is persistent pneumobilia, likely relating to prior sphincterotomy. There is otherwise unremarkable noncontrast appearance of the liver, pancreas, adrenal glands, and kidneys. Splenectomy and cholecystectomy changes are noted. No lymphadenopathy is appreciated in the abdomen or pelvis. There is normal caliber of the abdominal aorta. Degenerative changes are noted in the spine. Chronic compression deformities with evidence prior vertebroplasty are again noted at L2 and L3. The included lung bases are clear. Impression: Moderate distention of the ascending and transverse colon with prominent fecal material, suggesting constipation. The descending and rectosigmoid colon are nondistended. No evidence of bowel obstruction. Please note that all CT scans at this facility use dose modulation, iterative reconstruction, and/or weight-based dosing when appropriate to reduce radiation dose to as low as reasonably achievable. Dictated by Carisa Gama MD @ Aug 22 2019 7:36PM Signed by Dr. Carisa Gama @ Aug 22 2019 7:52PM
[2019-08-22] MEDS ORDERED: Magnesium Citrate Solution 296 ML Bottle PO ONE (19:58)
== END 2019-08-22 20:16 | disposition home or self-care (01) ==
LOC: JP.ED 16:33
DX: K59.01 Slow transit constipation (principal); F41.9 Anxiety disorder, unspecified; F32.9 Major depressive disorder, single episode, unspecified; Z88.8 Allergy status to other drugs, medicaments and biological substances; Z88.2 Allergy status to sulfonamides; Z88.5 Allergy status to narcotic agent; Z79.899 Other long term (current) drug therapy
CPT/HCPCS: 74176; 99283; 99284; A9270

== ENCOUNTER 2020-02-23 18:59 | Emergency (ER) | payer MEDICARE, OTHER ==
[2020-02-23 19:45] VITALS: PULSE 77
--- NOTE | 2020-02-23 20:11 | EDM.PDOC ---
ED HPI GENERAL MEDICAL PROBLEM - General Chief Complaint: General Stated Complaint: FELL AND CUT LEFT ARM Time Seen by Provider: 02/23/20 20:10 Source of Information: Reports: Patient, Family History Limitations: Reports: No Limitations - History of Present Illness INITIAL COMMENTS - FREE TEXT/NARRATIVE: pt arrived after she fell at home. She stated that she was quite dizzy. She has a headache. She does have a history of alot of headaches. She has a skin tear on the left arm about 3 inches in diameter. She has not vomited with the dizziness. Onset: Today, Sudden Duration: Hour(s): Location: Reports: Head, Upper Extremity, Right, Lower Extremity, Right Associated Symptoms: Reports: Headaches, Other (pt has dizziness. ) - Related Data Allergies Allergy/AdvReac Type Severity Reaction Status Date / Time amitriptyline Allergy Cannot Verified 02/23/20 19:30 Remember celecoxib Allergy Cannot Verified 02/23/20 19:30 Remember hydromorphone [From Dilaudid] Allergy Shaking Verified 02/23/20 19:30 lurasidone HCl [From Latuda] Allergy Cannot Verified 02/23/20 19:30 Remember Sulfa (Sulfonamide Allergy Rash Verified 02/23/20 19:30 Antibiotics) tramadol Allergy Itching Verified 02/23/20 19:30 Home Meds: Home Meds Cyanocobalamin (Vitamin B-12) [Vitamin B-12] 1,000 mcg IM ASDIRECTED 11/20/13 [History] Venlafaxine [Effexor] 100 mg PO BID 11/20/13 [History] Ondansetron [Zofran] 4 mg PO Q8H PRN 12/25/13 [History] Furosemide [Lasix] 20 mg PO DAILY PRN 11/17/17 [History] LORazepam 0.5 mg PO ASDIRECTED 10/08/18 [History] Acetaminophen [Tylenol Extra Strength] 1,000 mg PO Q4H PRN 02/13/19 [History] Cannabidiol (Cbd) Extract [CBD Oil] 1 appful PO BEDTIME 02/23/20 [History] Past Medical History HEENT History: Reports: Cataract, Impaired Vision, Sinusitis Cardiovascular History: Reports: Other (See Below) Other Cardiovascular History: varicose veins Respiratory History: Reports: None Gastrointestinal History: Reports: Chronic Constipation, GERD Genitourinary History: Reports: Renal Disease Other Genitourinary History: sees kidney specialist for function 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 cervical spine instability. left elbow FX Neurological History: Reports: Concussion, Migraines Psychiatric History: Reports: Anxiety, Depression, Panic Attack Other Psychiatric History: insomnia Endocrine/Metabolic History: Reports: Osteopenia, Other (See Below) Other Endocrine/Metabolic History: inherited spirocytosis Hematologic History: Reports: B12 Deficiency, Folic Acid, Other (See Below) Other Hematologic History: spiral cyctosis - hereditary Immunologic History: Reports: None Oncologic (Cancer) History: Reports: None Dermatologic History: Reports: None - Infectious Disease History Infectious Disease History: Reports: Measles - Past Surgical History Head Surgeries/Procedures: Reports: None HEENT Surgical History: Reports: Cataract Surgery, Oral Surgery, Other (See Below) Other HEENT Surgeries/Procedures: implanted teeth Cardiovascular Surgical History: Reports: None Respiratory Surgical History: Reports: None GI Surgical History: Reports: Appendectomy, Bariatric Procedure, Cholecystectomy, Colonoscopy, Hernia Repair/Other, Other (See Below) Other GI Surgeries/Procedures: spleenectomy Female Surgical History: Reports: None Endocrine Surgical History: Reports: None Neurological Surgical History: Reports: Other (See Below) Other Neurological Surgeries/Procedures: neck fx with surgery Musculoskeletal Surgical History: Reports: Knee Replacement, Other (See Below) Other Musculoskeletal Surgeries/Procedures:: neck surgery from fallJanuary, Oncologic Surgical History: Reports: None Dermatological Surgical History: Reports: None Social & Family History - Family History Family Medical History: Noncontributory - Tobacco Use Smoking Status *Q: Never Smoker - Caffeine Use Caffeine Use: Reports: Coffee Caffeine Use Comment: 2 cups coffee/day - Living Situation & Occupation Living situation: Reports: Occupation: Retired ED ROS GENERAL - Review of Systems Review Of Systems: See Below Constitutional: Reports: No Symptoms HEENT: Reports: No Symptoms, Other (pt has dizzines which did not sound like vertigo. ) Respiratory: Reports: No Symptoms Cardiovascular: Reports: No Symptoms Endocrine: Reports: No Symptoms GI/Abdominal: Reports: No Symptoms : Reports: No Symptoms Musculoskeletal: Reports: No Symptoms Skin: Reports: No Symptoms Neurological: Reports: Dizziness, Syncope Psychiatric: Reports: Anxiety ED EXAM, GENERAL - Physical Exam Exam: See Below Free Text/Narrative:: pt arrived with a history of headache and dizziness. She fell on the stairs and had a skin tear on the left elebow area. General Appearance: Alert, Anxious, Mild Distress, Other (pupils equala and reactive. ) Ears: Normal TMs Nose: Normal Inspection Throat/Mouth: Normal Inspection Head: Atraumatic Neck: Normal Inspection Respiratory/Chest: No Respiratory Distress Cardiovascular: Regular Rate, Rhythm GI/Abdominal: Soft, No Mass (Female) Exam: Deferred Rectal (Female) Exam: Deferred Back Exam: Normal Inspection Extremities: Other (pt has a 3 inch in diameter skin tear on the rt elebow. she is tender over the rt knee with some swelling. She Has bruising there. She has a tender rt shoulder. She did not hit her head. ) Neurological: Alert, Oriented, Normal Cognition Course - Vital Signs Last Recorded V/S: Last Vital Signs Temp 35.6 C L 02/23/20 19:45 Pulse 77 02/23/20 21:29 Resp 17 02/23/20 21:29 BP 144/78 H 02/23/20 21:29 Pulse Ox 98 02/23/20 21:29 - Orders/Labs/Meds Labs: Laboratory Tests 02/23/20 02/23/20 02/23/20 Range/Units 20:18 20:18 21:33 WBC 8.6 (4.5-11.0) K/uL RBC 3.83 (3.30-5.50) M/uL Hgb 11.8 L (12.0-15.0) g/dL Hct 37.6 (36.0-48.0) % MCV 98 (80-98) fL MCH 31 (27-31) pg MCHC 31 L (32-36) % Plt Count 401 H (150-400) K/uL Neut % (Auto) 65 (36-66) % Lymph % (Auto) 21 L (24-44) % [place] % (Auto) 12 H (2-6) % Eos % (Auto) 2 (2-4) % Baso % (Auto) 1 (0-1) % Sodium 140 (140-148) mmol/L Potassium 4.5 (3.6-5.2) mmol/L Chloride 106 (100-108) mmol/L Carbon Dioxide 25 (21-32) mmol/L Anion Gap 9.0 (5.0-14.0) mmol/L BUN 33 H (7-18) mg/dL Creatinine 1.2 H (0.6-1.0) mg/dL Est Cr Clr Drug Dosing 32.99 mL/min Estimated GFR (MDRD) 44 L (>60) Glucose 85 (74-106) mg/dL Calcium 8.9 (8.5-10.1) mg/dL Total Bilirubin 0.3 (0.2-1.0) mg/dL AST 17 (15-37) U/L ALT 16 (12-78) U/L Alkaline Phosphatase 93 (46-116) U/L Total Protein 6.5 (6.4-8.2) g/dL Albumin 3.4 (3.4-5.0) g/dL Globulin 3.1 (2.3-3.5) g/dL Albumin/Globulin Ratio 1.1 L (1.2-2.2) Urine Color Yellow (YELLOW) Urine Appearance Clear (CLEAR) Urine pH 5.5 (5.0-8.0) Ur Specific [place] 1.025 (1.008-1.030) Urine Protein Negative (NEGATIVE) mg/dL Urine Glucose (UA) Negative (NEGATIVE) mg/dL Urine Ketones Negative (NEGATIVE) mg/dL Urine Occult Blood Negative (NEGATIVE) Urine Nitrite Negative (NEGATIVE) Urine Bilirubin Negative (NEGATIVE) Urine Urobilinogen 0.2 (0.2-1.0) EU/dL Ur Leukocyte Esterase Trace H (NEGATIVE) Urine RBC Not seen (0-5) Urine WBC 0-5 (0-5) Ur Epithelial Cells Few Urine Bacteria Not seen Meds: Medications Discontinued Medications Generic Name Dose Route Start Last Admin Trade Name Freq PRN Reason Stop Dose Admin Hydrocodone Bitart/Acetaminophen 1 tab 02/23/20 21:16 02/23/20 21:21 [place] 325-5 Mg PO 02/23/20 21:17 1 tab ONETIME ONE Administration Meclizine HCl 25 mg 02/23/20 20:38 02/23/20 20:55 Antivert PO 02/23/20 20:39 25 mg ONETIME ONE Administration - Re-Assessments/Exams Free Text/Narrative Re-Assessment/Exam: 02/23/20 21:39 cat scan of the head shows several lucunar infarcts that are old, no acute findings, Shoulder and knee xray show no acute fractures. her lab work looked good. She states she has been eating and drinking normally. 02/23/20 21:48 ua did not look infected but was concentrated. 02/26/20 07:37 Pt did not describe vertgo. She seemed more off balance. She was mildly dehydrated and we did discuss this could cause dizziness. Departure - Departure Time of Disposition: 21:48 Disposition: Home, Self-Care 01 Condition: Fair Clinical Impression: Dehydration, Contusion of right knee, Skin tear of right elbow without complication - Discharge Information Instructions: Skin Tear, [id number], Contusion, Dehydration, Adult, Tissue Adhesive Wound Care, [id number] Referrals: Raoul Gann MD [Primary Care Provider] - Forms: ED Department Discharge Care Plan Goals: ppush fluids, cool pack rt knee, norco #4 for pain as needed. antivert 25 1 tab tid for the next 2 days. Sepsis Event Note (ED) - Evaluation Sepsis Screening Result: No Definite Risk
[2020-02-23] MEDS ORDERED: Meclizine 25 MG Tab PO ONE (20:38)
--- NOTE | 2020-02-23 21:06 | CRLCT ---
INDICATION: Headache and dizziness COMPARISON: Report of the previous CT of the head from 02/04/2019. The previous images are not retrievable from the archives at this time. TECHNIQUE: CT examination of the head was performed with 3 mm thick axial and coronal sections without intravenous contrast. Images were obtained from the vertex of the skull through the skull base, and I examined the images with the brain and bone windows. Please note that all CT scans at this facility use dose modulation, iterative reconstruction, and/or weight-based dosing when appropriate to reduce radiation dose to as low as reasonably achievable. FINDINGS: There is an old lacunar infarct in the anterior limb of the internal capsule on the left. There is an old lacunar infarct in the lateral midportion of the right putamen. There is an old lacunar infarction at the genu of the internal capsule on the right. The brain is otherwise normal in appearance for the patient`s age on today`s study, with no sign of mass lesion, mass effect, hemorrhage, or edema. There is moderate dilatation of the ventricles and sulci representing age-appropriate atrophy. There is mild periventricular and subcortical white matter hypodensity representing age-appropriate small vessel ischemia. The visualized portions of the orbits are normal in appearance. There is moderate mucosal thickening of the right ethmoids and mild mucosal thickening of the left ethmoids, consistent with chronic sinusitis. The rest of the visualized paranasal sinuses and mastoids are clear. The osseous structures are normal in their appearance with no sign of abnormality in the skull base or calvarium. IMPRESSION: Normal noncontrast CT of the head for the patient`s age. Moderate, age-appropriate atrophy and mild, age-appropriate small-vessel ischemic changes. Several old lacunar infarcts. Moderate chronic right and mild chronic left ethmoid sinusitis. The findings are consistent with the previous report. Please note that all CT scans at this facility use dose modulation, iterative reconstruction, and/or weight-based dosing when appropriate to reduce radiation dose to as low as reasonably achievable. Dictated by Kofi Bennett MD @ Feb 23 2020 8:58PM Signed by Dr. Kofi Bennett @ Feb 23 2020 9:03PM
[2020-02-23] MEDS ORDERED: Acetaminophen/HYDROcodone 325-5 MG Tab PO ONE (21:16)
[2020-02-23 21:30] VITALS: BP 144/78
--- NOTE | 2020-02-26 09:37 | CR ---
Knee Min 4V Rt, Shoulder Comp Rt CLINICAL HISTORY: Pain, fall FINDINGS: No acute fracture or dislocation is noted. There are no osseous lesions. There is a total knee arthroplasty. Components appear well seated. Bones appear osteopenic. Impression: Total knee arthroplasty appears intact No fracture Knee Min 4V Rt, Shoulder Comp Rt CLINICAL HISTORY: Pain, fall FINDINGS: There is no acute fracture or dislocation in the right shoulder. There are some osteoarthritic changes in the glenohumeral and AC joint. Impression: Degenerative changes No acute findings
== END 2020-02-23 22:34 | disposition home or self-care (01) ==
LOC: JP.ED 18:59
DX: S51.011A Laceration without foreign body of right elbow, initial encounter (principal); S80.01XA Contusion of right knee, initial encounter; E86.0 Dehydration; Z88.8 Allergy status to other drugs, medicaments and biological substances; Z88.5 Allergy status to narcotic agent; Z88.2 Allergy status to sulfonamides; F41.9 Anxiety disorder, unspecified; F32.9 Major depressive disorder, single episode, unspecified; W19.XXXA Unspecified fall, initial encounter; Y92.009 Unspecified place in unspecified non-institutional (private) residence as the place of occurrence of the external cause
CPT/HCPCS: 36415; 70450; 73030; 73564; 80053; 81001; 85025; 99284; A9270; 99283

== ENCOUNTER 2020-04-23 11:47 | Emergency (ER) | payer MEDICARE, OTHER ==
--- NOTE | 2020-04-23 12:38 | EDM.PDOC ---
ED HPI GENERAL MEDICAL PROBLEM - General Chief Complaint: General Stated Complaint: DIZZINESS Time Seen by Provider: 04/23/20 12:20 Source of Information: Reports: Patient History Limitations: Reports: No Limitations - History of Present Illness INITIAL COMMENTS - FREE TEXT/NARRATIVE: Patient presents emergency room today via POV secondary to concern about dizzy episode states that she woke up this morning with dizzy nests she got up to the dog out she was unable to stay upright without having to hang onto everything states having trouble navigating she states this caused some increase in her anxiety she does have some baseline anxiety issues per her report she is not sure whether the anxiety preceded the dizziness or the dizziness caused her anxiety to get out of control but either way she took a lorazepam because of the sensation she was having generally she states she has a problem with dizziness or vertigo and she also took her dizzy pill she is not sure what the name of that medication is she does feel like things are getting somewhat better she is able to open her eyes in the room is not spinning he sits up in the bed for exam she does note that she still has some dizziness not walk into the emergency room she did come in via wheelchair secondary to continued dizziness although as she stated it is improving from when she was at home PMH--depression anxiety vertigo and hereditary spirocytosis status post splenectomy; additionally noted on review of EMR chronic pain syndrome, arthritis, weakness, constipation Meds--Ativan, Effexor, ?Meclizine/Antivert Allergies--amitriptyline, celebrex, dilaudid, latuda, sulfa, tramadol tob/etoh/drugs--denies Onset: Today, Sudden Onset Date: 04/23/20 (upon awakening this morning) Duration: Improving Treatments 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: Other (see below) (ativan and "dizzy" pill) - Related Data Allergies Allergy/AdvReac Type Severity Reaction Status Date / Time amitriptyline Allergy Cannot Verified 02/23/20 19:30 Remember celecoxib Allergy Cannot Verified 02/23/20 19:30 Remember hydromorphone [From Dilaudid] Allergy Shaking Verified 02/23/20 19:30 lurasidone HCl [From Latuda] Allergy Cannot Verified 02/23/20 19:30 Remember Sulfa (Sulfonamide Allergy Rash Verified 02/23/20 19:30 Antibiotics) tramadol Allergy Itching Verified 02/23/20 19:30 Home Meds: Home Meds Cyanocobalamin (Vitamin B-12) [Vitamin B-12] 1,000 mcg IM ASDIRECTED 11/20/13 [History] Venlafaxine [Effexor] 100 mg PO BID 11/20/13 [History] Ondansetron [Zofran] 4 mg PO Q8H PRN 12/25/13 [History] Furosemide [Lasix] 20 mg PO DAILY PRN 11/17/17 [History] LORazepam 0.5 mg PO ASDIRECTED 10/08/18 [History] Acetaminophen [Tylenol Extra Strength] 1,000 mg PO Q4H PRN 02/13/19 [History] Cannabidiol (Cbd) Extract [CBD Oil] 1 appful PO BEDTIME 02/23/20 [History] Past Medical History HEENT History: Reports: Cataract, Impaired Vision, Sinusitis Cardiovascular History: Reports: Other (See Below) Other Cardiovascular History: varicose veins Respiratory History: Reports: None Gastrointestinal History: Reports: Chronic Constipation, GERD Genitourinary History: Reports: Renal Disease Other Genitourinary History: 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 cervical spine instability. left elbow FX Neurological History: Reports: Concussion, Migraines Psychiatric History: Reports: Anxiety, Depression, Panic Attack Other Psychiatric History: insomnia Endocrine/Metabolic History: Reports: Osteopenia, Other (See Below) Other Endocrine/Metabolic History: inherited spirocytosis Hematologic History: Reports: B12 Deficiency, Folic Acid, Other (See Below) Other Hematologic History: spiral cyctosis - hereditary Immunologic History: Reports: None Oncologic (Cancer) History: Reports: None Dermatologic History: Reports: None - Infectious Disease History Infectious Disease History: Reports: Measles - Past Surgical History Head Surgeries/Procedures: Reports: None HEENT Surgical History: Reports: Cataract Surgery, Oral Surgery, Other (See Below) Other HEENT Surgeries/Procedures: implanted teeth Cardiovascular Surgical History: Reports: None Respiratory Surgical History: Reports: None GI Surgical History: Reports: Appendectomy, Bariatric Procedure, Cholecystectomy, Colonoscopy, Hernia Repair/Other, Other (See Below) Other GI Surgeries/Procedures: spleenectomy Female Surgical History: Reports: None Endocrine Surgical History: Reports: None Neurological Surgical History: Reports: Other (See Below) Other Neurological Surgeries/Procedures: neck fx with surgery Musculoskeletal Surgical History: Reports: Knee Replacement, Other (See Below) Other Musculoskeletal Surgeries/Procedures:: neck surgery from fallJanuary, Oncologic Surgical History: Reports: None Dermatological Surgical History: Reports: None Social & Family History - Family History Family Medical History: No Pertinent Family History - Tobacco Use Tobacco Use Status *Q: Never Tobacco User - Caffeine Use Caffeine Use: Reports: Coffee Caffeine Use Comment: 2 cups coffee/day - Recreational Drug Use Recreational Drug Use: No - Living Situation & Occupation Living situation: Reports: Occupation: Retired ED ROS GENERAL - Review of Systems Review Of Systems: Comprehensive ROS is negative, except as noted in HPI. Constitutional: Reports: No Symptoms HEENT: Reports: No Symptoms Respiratory: Reports: No Symptoms Cardiovascular: Reports: No Symptoms. Denies: Chest Pain Endocrine: Reports: No Symptoms GI/Abdominal: Reports: No Symptoms : Reports: No Symptoms Musculoskeletal: Reports: No Symptoms Skin: Reports: No Symptoms Neurological: Reports: Dizziness, Difficulty Walking, Gait Disturbance Psychiatric: Reports: No Symptoms Hematologic/Lymphatic: Reports: No Symptoms Immunologic: Reports: No Symptoms ED EXAM, GENERAL - Physical Exam Exam: See Below Exam Limited By: No Limitations General Appearance: Alert, No Apparent Distress, Other (frail, elderly appearing female who appears weak/frail in nature) Eye Exam: Bilateral Eye: EOMI, Normal Inspection, PERRL Ears: Normal External Exam, Hearing Grossly Normal Nose: Normal Inspection Throat/Mouth: Normal Inspection, Normal Lips, Normal Oropharynx Head: Atraumatic, Normocephalic Neck: Normal Inspection, Supple, Non-Tender, Full Range of Motion. No: Lymphadenopathy (R), Lymphadenopathy (L) Respiratory/Chest: No Respiratory Distress, Lungs Clear, Normal Breath Sounds, No Accessory Muscle Use Cardiovascular: Normal Peripheral Pulses, Regular Rate, Rhythm, No Murmur, Other (trace pedal) Peripheral Pulses: 2+: Radial (L), Radial (R) GI/Abdominal: Normal Bowel Sounds, Soft, Non-Tender (Female) Exam: Deferred Rectal (Female) Exam: Deferred Back Exam: Other (thoracic kyphosis) Extremities: Normal Inspection, Normal Capillary Refill, Pedal Edema Neurological: Alert, Oriented, CN II-XII Intact, Normal Cognition, No Motor/Sensory Deficits Psychiatric: Normal Affect, Normal Mood Skin Exam: Warm, Dry, Intact, Normal Color #1 Interpretation EKG Date: 04/23/20 Time: 12:44 (read by physician at 1249) Rhythm: NSR Rate (Beats/Min): 62 [place]: Normal P-Wave: Present (VA-164) QRS: Normal (QRS-92, low voltage precordial leads) ST-T: Normal QT: Normal (QT/QTc-442/449) EKG Interpretation Comments: normal EKG Course - Vital Signs Text/Narrative:: 1330--labs have been reviewed. patient reports that she is feeling improved and ready to go home. dizziness is resolved at this time. d/w her home care measures to include diet/hydration/rest. she verbalized understanding/agreement with plan of care. ready to d/c Last Recorded V/S: Last Vital Signs Temp 97.3 F 04/23/20 12:14 Pulse 58 L 04/23/20 13:34 Resp 14 04/23/20 12:14 BP 153/77 H 04/23/20 13:34 Pulse Ox 97 04/23/20 13:34 - Orders/Labs/Meds Orders: Active Orders 24 hr Category Date Time Status EKG Documentation Completion [RC] ASDIRECTED Care 04/23/20 12:33 Active EKG 12 Lead [EK] Routine Ther 04/23/20 12:32 Ordered Labs: Laboratory Tests 04/23/20 04/23/20 Range/Units 12:46 12:46 WBC 8.3 (4.5-11.0) K/uL RBC 3.83 (3.30-5.50) M/uL Hgb 11.9 L (12.0-15.0) g/dL Hct 37.6 (36.0-48.0) % MCV 98 (80-98) fL MCH 31 (27-31) pg MCHC 32 (32-36) % Plt Count 419 H (150-400) K/uL Neut % (Auto) 66 (36-66) % Lymph % (Auto) 17 L (24-44) % [place] % (Auto) 15 H (2-6) % Eos % (Auto) 2 (2-4) % Baso % (Auto) 1 (0-1) % Sodium 143 (140-148) mmol/L Potassium 4.1 (3.6-5.2) mmol/L Chloride 107 (100-108) mmol/L Carbon Dioxide 27 (21-32) mmol/L Anion Gap 9.3 (5.0-14.0) mmol/L BUN 17 (7-18) mg/dL Creatinine 1.0 (0.6-1.0) mg/dL Est Cr Clr Drug Dosing 39.59 mL/min Estimated GFR (MDRD) 54 L (>60) Glucose 84 (74-106) mg/dL Calcium 8.9 (8.5-10.1) mg/dL TSH, Ultra Sensitive 1.445 (0.358-3.740) uIU/mL Departure - Departure Time of Disposition: 13:45 Disposition: Home, Self-Care 01 Clinical Impression: Vertigo, Anxiety - Discharge Information *PRESCRIPTION DRUG MONITORING PROGRAM REVIEWED*: Not Applicable *COPY OF PRESCRIPTION DRUG MONITORING REPORT IN PATIENT ERUM: Not Applicable Instructions: Dizziness, [id number], Managing Anxiety, Adult Referrals: Raoul Gann MD [Primary Care Provider] - Forms: ED Department Discharge Additional Instructions: Take your home medications a prescribed, follow up with your PCM on a regular basis Ensure you are drinking plenty of fluids--water/juice/sports drinks of choice; avoid highly caffienated or alcoholic beverages Ensure you are eating a balanced diet of fruits/vegatables, proteins such as milk/cheese nuts meats, and breads & cereals Ensure you are getting plenty of rest/sleep Walking or exercise on a routine basis is a great way to help keep anxiety in check--during the winter you may consider indoor areas such as the grocery store or a large department store such as [employer] to walk if you do not want to walk outside where it is cold and slippery Sepsis Event Note (ED) - Evaluation Sepsis Screening Result: No Definite Risk - Focused Exam Vital Signs: Vital Signs Temp Pulse Resp BP Pulse Ox 04/23/20 13:34 58 L 153/77 H 97 04/23/20 12:52 58 L 150/81 H 98 04/23/20 12:14 97.3 F 62 14 143/72 H 96 04/23/20 12:04 97.3 F 62 14 143/72 H 96 - My Orders Last 24 Hours: My Active Orders 04/23/20 12:32 EKG 12 Lead [EK] Routine 04/23/20 12:33 EKG Documentation Completion [RC] ASDIRECTED - Assessment/Plan Last 24 Hours: My Active Orders 04/23/20 12:32 EKG 12 Lead [EK] Routine 04/23/20 12:33 EKG Documentation Completion [RC] ASDIRECTED
[2020-04-23 12:53] VITALS: PULSE 58
[2020-04-23 13:34] VITALS: BP 153/77
== END 2020-04-23 14:02 | disposition home or self-care (01) ==
LOC: JP.ED 11:47
DX: R42 Dizziness and giddiness (principal); F41.9 Anxiety disorder, unspecified; Z88.8 Allergy status to other drugs, medicaments and biological substances; Z88.2 Allergy status to sulfonamides; Z88.5 Allergy status to narcotic agent; Z79.899 Other long term (current) drug therapy; F32.9 Major depressive disorder, single episode, unspecified
CPT/HCPCS: 36415; 80048; 84443; 85025; 93005; 93010; 99282; 99284-25

== ENCOUNTER 2020-06-24 23:07 | Emergency (ER) | payer MEDICARE, OTHER ==
[2020-06-24] MEDS ORDERED: Sodium Chloride 0.9% 1,000 ML IV SCH (23:45)
--- NOTE | 2020-06-24 23:48 | EDM.PDOC ---
ED HPI GENERAL MEDICAL PROBLEM - General Chief Complaint: Syncope Stated Complaint: MED[facility] Time Seen by Provider: 06/24/20 23:37 Source of Information: Reports: Patient, EMS, Family History Limitations: Reports: No Limitations - History of Present Illness INITIAL COMMENTS - FREE TEXT/NARRATIVE: 75-year-old female who collapsed and went unresponsive while having a very large bowel movement at home. She felt constipated, no bowel movement for 7 days took some diuretics this afternoon and this evening felt dizzy and lightheaded even before she went to the bathroom. According to her significant other, she "filled 3 toilets" and then became more dizzy and passed out and was unresponsive for up to 10 minutes. No injury. Denies any chest pain or shortness of breath. EMS was called, she was found to be hypotensive but not tachycardic, still woozy and dizzy but responding. Associated Symptoms: Reports: Confusion (Brief confusion which is improving), Weakness. Denies: Fever/Chills - Related Data Allergies Allergy/AdvReac Type Severity Reaction Status Date / Time amitriptyline Allergy Cannot Verified 06/24/20 23:18 Remember celecoxib Allergy Cannot Verified 06/24/20 23:18 Remember hydromorphone [From Dilaudid] Allergy Shaking Verified 06/24/20 23:18 lurasidone HCl [From Latuda] Allergy Cannot Verified 06/24/20 23:18 Remember Sulfa (Sulfonamide Allergy Rash Verified 06/24/20 23:18 Antibiotics) tramadol Allergy Itching Verified 06/24/20 23:18 Home Meds: Home Meds Cyanocobalamin (Vitamin B-12) [Vitamin B-12] 1,000 mcg IM ASDIRECTED 11/20/13 [History] Venlafaxine [Effexor] 100 mg PO BID 11/20/13 [History] Ondansetron [Zofran] 4 mg PO Q8H PRN 12/25/13 [History] Furosemide [Lasix] 20 mg PO DAILY PRN 11/17/17 [History] LORazepam 0.5 mg PO ASDIRECTED 10/08/18 [History] Acetaminophen [Tylenol Extra Strength] 1,000 mg PO Q4H PRN 02/13/19 [History] Cannabidiol (Cbd) Extract [CBD Oil] 1 appful PO BEDTIME 02/23/20 [History] Past Medical History HEENT History: Reports: Cataract, Impaired Vision, Sinusitis Cardiovascular History: Reports: Other (See Below) Other Cardiovascular History: varicose veins Respiratory History: Reports: None Gastrointestinal History: Reports: Chronic Constipation, GERD Genitourinary History: Reports: Renal Disease Other Genitourinary History: sees kidney specialist for function 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 cervical spine instability. left elbow FX Neurological History: Reports: Concussion, Migraines Psychiatric History: Reports: Anxiety, Depression, Panic Attack Other Psychiatric History: insomnia Endocrine/Metabolic History: Reports: Osteopenia, Other (See Below) Other Endocrine/Metabolic History: inherited spirocytosis Hematologic History: Reports: B12 Deficiency, Folic Acid, Other (See Below) Other Hematologic History: spiral cyctosis - hereditary Immunologic History: Reports: None Oncologic (Cancer) History: Reports: None Dermatologic History: Reports: None - Infectious Disease History Infectious Disease History: Reports: Measles - Past Surgical History Head Surgeries/Procedures: Reports: None HEENT Surgical History: Reports: Cataract Surgery, Oral Surgery, Other (See Below) Other HEENT Surgeries/Procedures: implanted teeth Cardiovascular Surgical History: Reports: None Respiratory Surgical History: Reports: None GI Surgical History: Reports: Appendectomy, Bariatric Procedure, Cholecystectomy, Colonoscopy, Hernia Repair/Other, Other (See Below) Other GI Surgeries/Procedures: spleenectomy Female Surgical History: Reports: None Endocrine Surgical History: Reports: None Neurological Surgical History: Reports: Other (See Below) Other Neurological Surgeries/Procedures: neck fx with surgery Musculoskeletal Surgical History: Reports: Knee Replacement, Other (See Below) Other Musculoskeletal Surgeries/Procedures:: neck surgery from fallJanuary, Oncologic Surgical History: Reports: None Dermatological Surgical History: Reports: None Social & Family History - Family History Family Medical History: No Pertinent Family History - Tobacco Use Tobacco Use Status *Q: Never Tobacco User - Caffeine Use Caffeine Use: Reports: Coffee Caffeine Use Comment: 2 cups coffee/day - Living Situation & Occupation Living situation: Reports: Occupation: Retired ED ROS GENERAL - Review of Systems Review Of Systems: See Below Constitutional: Reports: Malaise. Denies: Fever, Chills HEENT: Reports: No Symptoms Respiratory: Denies: Shortness of Breath Cardiovascular: Denies: Chest Pain GI/Abdominal: Reports: Constipation. Denies: Abdominal Pain, Nausea, Vomiting Skin: Denies: Bruising Neurological: Reports: Dizziness. Denies: Headache - Physical Exam Exam: See Below Exam Limited By: No Limitations General Appearance: Alert, No Apparent Distress Eye Exam: Bilateral Eye: Normal Inspection Head Exam: Atraumatic Respiratory/Chest: No Respiratory Distress, Lungs Clear Cardiovascular: Regular Rate, Rhythm. No: Extra Beats GI/Abdominal: Soft, Non-Tender, Other (Bowel sounds are somewhat hypoactive) Neuro Exam (Abbreviated): Alert, Oriented, No Motor/Sensory Deficits Extremities: No: Pedal Edema Psychiatric: Flat Affect Skin Exam: Warm, Dry Course - Vital Signs Last Recorded V/S: Last Vital Signs Temp 95.2 F L 06/24/20 23:21 Pulse 63 06/25/20 00:17 Resp 10 L 06/25/20 00:17 BP 110/56 L 06/25/20 00:17 Pulse Ox 98 06/25/20 00:17 - Orders/Labs/Meds Orders: Active Orders 24 hr Category Date Time Status EKG 12 Lead [EK] Routine Ther 06/24/20 23:46 Ordered Labs: Laboratory Tests 06/24/20 06/24/20 Range/Units 23:55 23:55 WBC 9.0 (4.5-11.0) K/uL RBC 3.94 (3.30-5.50) M/uL Hgb 12.2 (12.0-15.0) g/dL Hct 39.7 (36.0-48.0) % MCV 101 H (80-98) fL MCH 31 (27-31) pg MCHC 31 L (32-36) % Plt Count 333 (150-400) K/uL Neut % (Auto) 74 H (36-66) % Lymph % (Auto) 14 L (24-44) % [place] % (Auto) 10 H (2-6) % Eos % (Auto) 1 L (2-4) % Baso % (Auto) 1 (0-1) % Sodium 142 (140-148) mmol/L Potassium 4.4 (3.6-5.2) mmol/L Chloride 108 (100-108) mmol/L Carbon Dioxide 23 (21-32) mmol/L Anion Gap 10.6 (5.0-14.0) mmol/L BUN 26 H D (7-18) mg/dL Creatinine 1.2 H (0.6-1.0) mg/dL Est Cr Clr Drug Dosing 32.99 mL/min Estimated GFR (MDRD) 44 L (>60) Glucose 109 H (74-106) mg/dL Calcium 8.7 (8.5-10.1) mg/dL Total Bilirubin 0.2 (0.2-1.0) mg/dL AST 20 (15-37) U/L ALT 16 (12-78) U/L Alkaline Phosphatase 86 (46-116) U/L Total Protein 6.3 L (6.4-8.2) g/dL Albumin 3.4 (3.4-5.0) g/dL Globulin 2.9 (2.3-3.5) g/dL Albumin/Globulin Ratio 1.2 (1.2-2.2) Meds: Medications Discontinued Medications Generic Name Dose Route Start Last Admin Trade Name Freq PRN Reason Stop Dose Admin Sodium Chloride 1,000 mls @ 1,000 mls/hr 06/24/20 23:45 06/24/20 23:47 Normal Saline IV 1,000 mls/hr ASDIRECTED [facility] Administration - Re-Assessments/Exams Free Text/Narrative Re-Assessment/Exam: 06/25/20 00:24 EKG showed sinus rhythm, rate of 61 but no other changes. Initially blood pressure was low at 87/51 but after 1 L of fluid she rebounded to 110/67. No further symptoms. She remained tired. CBC CMP returned only abnormal labs were mild elevation in creatinine BUN and slight decrease in GFR correlating with dehydration. Electrolytes are normal, CBC was normal. Patient was discharged with diagnosis of vasovagal syncope. Departure - Departure Time of Disposition: 00:49 Disposition: Home, Self-Care 01 Clinical Impression: Vasovagal syncope, Dehydration, moderate - Discharge Information Instructions: Syncope, [id number] Referrals: PCP,None [Primary Care Provider] - Forms: ED Department Discharge Care Plan Goals: Continue your current medications, increase activity as tolerated and stay hydrated. Return anytime if worsening or concerns. Sepsis Event Note (ED) - Evaluation Sepsis Screening Result: No Definite Risk - Focused Exam Vital Signs: Vital Signs Temp Pulse Resp BP Pulse Ox 06/25/20 00:17 63 10 L 110/56 L 98 06/24/20 23:45 60 12 91/57 L 99 06/24/20 23:21 95.2 F L 68 15 87/51 L 100 06/24/20 23:15 95.2 F L 68 15 87/51 L 100 - My Orders Last 24 Hours: My Active Orders 06/24/20 23:46 EKG 12 Lead [EK] Routine - Assessment/Plan Last 24 Hours: My Active Orders 06/24/20 23:46 EKG 12 Lead [EK] Routine
[2020-06-25 00:18] VITALS: BP 110/56; PULSE 63
== END 2020-06-25 00:50 | disposition home or self-care (01) ==
LOC: JP.ED 23:07
DX: E86.0 Dehydration (principal); Z88.8 Allergy status to other drugs, medicaments and biological substances; Z88.5 Allergy status to narcotic agent; Z88.2 Allergy status to sulfonamides; Z79.899 Other long term (current) drug therapy
CPT/HCPCS: 36415; 80053; 85025; 93005; 99283; 99285; J7030

== ENCOUNTER 2020-07-27 14:39 | Emergency (ER) | payer MEDICARE, OTHER ==
[2020-07-27 15:16] VITALS: BP 112/66; PULSE 69
--- NOTE | 2020-07-27 15:58 | EDM.PDOC ---
ED HPI GENERAL MEDICAL PROBLEM - General Chief Complaint: General Stated Complaint: VOMITTING, DIAHRREA, DIZZY Time Seen by Provider: 07/27/20 15:40 Source of Information: Reports: Patient, Family History Limitations: Reports: No Limitations - History of Present Illness INITIAL COMMENTS - FREE TEXT/NARRATIVE: 75-year-old female, status post gastric bypass years ago has had chronic IBS type symptoms ever since. Yesterday she had several episodes of vomiting, had diarrhea this morning and feels so tired and weak she thought she should come in today. No fevers or chills. No real significant changes generally. Onset: Unknown/Unsure Duration: Chronic Associated Symptoms: Reports: Malaise, Nausea/Vomiting, Weakness, Other (Intermittent diarrhea constipation). Denies: Confusion, Chest Pain, Cough - Related Data Allergies Allergy/AdvReac Type Severity Reaction Status Date / Time amitriptyline Allergy Cannot Verified 07/27/20 15:25 Remember celecoxib Allergy Cannot Verified 07/27/20 15:25 Remember hydromorphone [From Dilaudid] Allergy Shaking Verified 07/27/20 15:25 lurasidone HCl [From Latuda] Allergy Cannot Verified 07/27/20 15:25 Remember Sulfa (Sulfonamide Allergy Rash Verified 07/27/20 15:25 Antibiotics) tramadol Allergy Itching Verified 07/27/20 15:25 Home Meds: Home Meds Cyanocobalamin (Vitamin B-12) [Vitamin B-12] 1,000 mcg IM ASDIRECTED 11/20/13 [History] Venlafaxine [Effexor] 100 mg PO BID 11/20/13 [History] Ondansetron [Zofran] 4 mg PO Q8H PRN 12/25/13 [History] LORazepam 0.5 mg PO ASDIRECTED 10/08/18 [History] Acetaminophen [Tylenol Extra Strength] 1,000 mg PO Q4H PRN 02/13/19 [History] Cannabidiol (Cbd) Extract [CBD Oil] 1 appful PO BEDTIME 02/23/20 [History] LORazepam [Ativan] 1 tab PO DAILY PRN 07/27/20 [History] Ramelteon 1 tab PO BEDTIME 07/27/20 [History] Past Medical History HEENT History: Reports: Cataract, Impaired Vision, Sinusitis Cardiovascular History: Reports: Other (See Below) Other Cardiovascular History: varicose veins Respiratory History: Reports: None Gastrointestinal History: Reports: Chronic Constipation, GERD Genitourinary History: Reports: Renal Disease Other Genitourinary History: sees kidney specialist for function 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 cervical spine instability. left elbow FX Neurological History: Reports: Concussion, Migraines Psychiatric History: Reports: Anxiety, Depression, Panic Attack Other Psychiatric History: insomnia Endocrine/Metabolic History: Reports: Osteopenia, Other (See Below) Other Endocrine/Metabolic History: inherited spirocytosis Hematologic History: Reports: B12 Deficiency, Folic Acid, Other (See Below) Other Hematologic History: spiral cyctosis - hereditary Immunologic History: Reports: None Oncologic (Cancer) History: Reports: None Dermatologic History: Reports: None - Infectious Disease History Infectious Disease History: Reports: Measles - Past Surgical History Head Surgeries/Procedures: Reports: None HEENT Surgical History: Reports: Cataract Surgery, Oral Surgery, Other (See Below) Other HEENT Surgeries/Procedures: implanted teeth Cardiovascular Surgical History: Reports: None Respiratory Surgical History: Reports: None GI Surgical History: Reports: Appendectomy, Bariatric Procedure, Cholecystectomy, Colonoscopy, Hernia Repair/Other, Other (See Below) Other GI Surgeries/Procedures: spleenectomy Female Surgical History: Reports: None Endocrine Surgical History: Reports: None Neurological Surgical History: Reports: Other (See Below) Other Neurological Surgeries/Procedures: neck fx with surgery Musculoskeletal Surgical History: Reports: Knee Replacement, Other (See Below) Other Musculoskeletal Surgeries/Procedures:: neck surgery from fallJanuary, Oncologic Surgical History: Reports: None Dermatological Surgical History: Reports: None Social & Family History - Family History Family Medical History: No Pertinent Family History - Tobacco Use Tobacco Use Status *Q: Never Tobacco User - Caffeine Use Caffeine Use: Reports: Coffee Caffeine Use Comment: 2 cups coffee/day - Living Situation & Occupation Living situation: Reports: Occupation: Retired ED ROS GENERAL - Review of Systems Review Of Systems: See Below Constitutional: Reports: Malaise. Denies: Fever, Chills HEENT: Reports: No Symptoms Respiratory: Denies: Shortness of Breath Cardiovascular: Denies: Chest Pain Endocrine: Reports: Fatigue GI/Abdominal: Denies: Abdominal Pain : Reports: No Symptoms Skin: Reports: Bruising (Bruises easily) Neurological: Reports: Dizziness, Weakness. Denies: Headache ED EXAM, GENERAL - Physical Exam Exam: See Below Exam Limited By: No Limitations General Appearance: Alert, No Apparent Distress, Other (Looks tired, somewhat cachectic but in no distress) Eye Exam: Bilateral Eye: Normal Inspection (Well-hydrated, no scleral icterus) Head: Atraumatic Respiratory/Chest: Lungs Clear Cardiovascular: Regular Rate, Rhythm. No: Tachycardia GI/Abdominal: Normal Bowel Sounds, Soft, Non-Tender. No: Distended Extremities: No: Pedal Edema Neurological: Alert, Oriented Psychiatric: Depressed Mood, Flat Affect Skin Exam: Warm, Dry Course - Vital Signs Last Recorded V/S: Last Vital Signs Temp 97.4 F 07/27/20 15:41 Pulse 69 07/27/20 15:41 Resp 18 07/27/20 15:41 BP 112/66 07/27/20 15:41 Pulse Ox 99 07/27/20 15:41 - Orders/Labs/Meds Labs: Laboratory Tests 07/27/20 07/27/20 Range/Units 16:08 16:08 WBC 9.2 (4.5-11.0) K/uL RBC 4.44 (3.30-5.50) M/uL Hgb 13.7 (12.0-15.0) g/dL Hct 42.6 (36.0-48.0) % MCV 96 (80-98) fL MCH 31 (27-31) pg MCHC 32 (32-36) % Plt Count 421 H (150-400) K/uL Neut % (Auto) 65 (36-66) % Lymph % (Auto) 24 (24-44) % [place] % (Auto) 10 H (2-6) % Eos % (Auto) 1 L (2-4) % Baso % (Auto) 0 (0-1) % Sodium 143 (140-148) mmol/L Potassium 4.2 (3.6-5.2) mmol/L Chloride 107 (100-108) mmol/L Carbon Dioxide 25 (21-32) mmol/L Anion Gap 11.1 (5.0-14.0) mmol/L BUN 21 H (7-18) mg/dL Creatinine 1.4 H (0.6-1.0) mg/dL Est Cr Clr Drug Dosing 28.28 mL/min Estimated GFR (MDRD) 37 L (>60) Glucose 89 (74-106) mg/dL Calcium 9.0 (8.5-10.1) mg/dL Magnesium 2.1 (1.8-2.4) mg/dL Total Bilirubin 0.5 D (0.2-1.0) mg/dL AST 20 (15-37) U/L ALT 15 (12-78) U/L Alkaline Phosphatase 87 (46-116) U/L Total Protein 6.8 (6.4-8.2) g/dL Albumin 3.6 (3.4-5.0) g/dL Globulin 3.2 (2.3-3.5) g/dL Albumin/Globulin Ratio 1.1 L (1.2-2.2) Lipase 50 L (73-393) U/L TSH, Ultra Sensitive 0.901 (0.358-3.740) uIU/mL Meds: Medications Discontinued Medications Generic Name Dose Route Start Last Admin Trade Name Freq PRN Reason Stop Dose Admin Multivitamins/Minerals 10 ml/ 1,017.2 mls @ 500 mls/hr 07/27/20 16:00 07/27/20 16:11 Thiamine HCl 100 mg/ Folic IV 500 mls/hr Acid 1 mg/ Magnesium Sulfate 3 ASDIRECTED [place] Administration gm/ Sodium Chloride - Re-Assessments/Exams Free Text/Narrative Re-Assessment/Exam: 07/27/20 15:57 Patient will be hydrated with a banana bag, CBC CMP magnesium and TSH were obtained. 07/27/20 16:59 All the patient's labs were normal, and she started asking for something to eat. When her banana bag is done she will be discharged Departure - Departure Time of Disposition: 17:51 Disposition: Home, Self-Care 01 Clinical Impression: Hx of gastric bypass, Weakness generalized IBS (irritable bowel syndrome) Qualifiers: Irritable bowel syndrome type: with both diarrhea and constipation Qualified Code(s): K58.2 - Mixed irritable bowel syndrome - Discharge Information Instructions: Irritable Bowel Syndrome, Adult Referrals: Raoul Gann MD [Primary Care Provider] - Forms: ED Department Discharge Care Plan Goals: Try to increase diet as tolerated along with increasing activity. Talk with Dr. Marroquin about any interest in further tests, consults, or reversal surgeries. Sepsis Event Note (ED) - Evaluation Sepsis Screening Result: No Definite Risk
[2020-07-27] MEDS ORDERED: MVI, Adult with Vitamin K 10 ML, Thiamine 100 MG, Folic Acid 1 MG, Magnesium Sulfate 3 ... IV SCH ×5 (16:00)
== END 2020-07-27 17:52 | disposition home or self-care (01) ==
LOC: JP.ED 14:39
DX: K58.2 Mixed irritable bowel syndrome (principal); R53.1 Weakness; Z98.84 Bariatric surgery status; Z88.8 Allergy status to other drugs, medicaments and biological substances; Z88.5 Allergy status to narcotic agent; Z88.2 Allergy status to sulfonamides; Z79.899 Other long term (current) drug therapy
CPT/HCPCS: 36415; 80053; 83690; 83735; 84443; 85025; 96365; 96366; 99284; J3411; J3475; J7030; 99283; J3490

== ENCOUNTER 2020-08-25 18:20 | Emergency (ER) | payer MEDICARE, OTHER ==
[2020-08-25 18:33] VITALS: BP 155/76; PULSE 77
--- NOTE | 2020-08-25 18:44 | EDM.PDOC ---
ED HPI GENERAL MEDICAL PROBLEM - General Chief Complaint: Laceration Stated Complaint: FELL AND HURT FACE AND HAND Time Seen by Provider: 08/25/20 18:36 Source of Information: Reports: Patient, Family History Limitations: Reports: No Limitations - History of Present Illness INITIAL COMMENTS - FREE TEXT/NARRATIVE: Kathya is a 75-year-old female presenting to the ED for evaluation of jaw pain and a skin tear to the lateral left hand that occurred when she fell. Patient's reports that she has been falling a lot more recently. Denies any other injuries. There was no loss of consciousness. She denies any headache. Patient is having pain at the mid section of the left mandible. There is no deformity or malalignment of teeth. Jaw Pain Score (Numeric/FACES): 10 - Related Data Allergies Allergy/AdvReac Type Severity Reaction Status Date / Time amitriptyline Allergy Cannot Verified 08/25/20 18:27 Remember celecoxib Allergy Cannot Verified 08/25/20 18:27 Remember hydromorphone [From Dilaudid] Allergy Shaking Verified 08/25/20 18:27 lurasidone HCl [From Latuda] Allergy Cannot Verified 08/25/20 18:27 Remember Sulfa (Sulfonamide Allergy Rash Verified 08/25/20 18:27 Antibiotics) tramadol Allergy Itching Verified 08/25/20 18:27 Home Meds: Home Meds Cyanocobalamin (Vitamin B-12) [Vitamin B-12] 1,000 mcg IM ASDIRECTED 11/20/13 [History] Ondansetron [Zofran] 4 mg PO Q8H PRN 12/25/13 [History] LORazepam 0.25 mg PO BID PRN 10/08/18 [History] Acetaminophen [Tylenol Extra Strength] 1,000 mg PO Q4H PRN 02/13/19 [History] Cannabidiol (Cbd) Extract [CBD Oil] 1 appful PO BEDTIME 02/23/20 [History] Ramelteon 8 mg PO DAILY 08/25/20 [History] Past Medical History HEENT History: Reports: Cataract, Impaired Vision, Sinusitis Cardiovascular History: Reports: Other (See Below) Other Cardiovascular History: varicose veins Respiratory History: Reports: None Gastrointestinal History: Reports: Chronic Constipation, GERD Genitourinary History: Reports: Renal Disease Other Genitourinary History: sees kidney specialist for function [employer] History: Reports: Musculoskeletal History: Reports: Arthritis, Back Pain, Chronic, Fracture Other Musculoskeletal History: spinal stenosis. cervical spine instability. left elbow FX Neurological History: Reports: Concussion, Migraines Psychiatric History: Reports: Anxiety, Depression, Panic Attack Other Psychiatric History: insomnia Endocrine/Metabolic History: Reports: Osteopenia, Other (See Below) Other Endocrine/Metabolic History: inherited spirocytosis Hematologic History: Reports: B12 Deficiency, Folic Acid, Other (See Below) Other Hematologic History: spiral cyctosis - hereditary Immunologic History: Reports: None Oncologic (Cancer) History: Reports: None Dermatologic History: Reports: None - Infectious Disease History Infectious Disease History: Reports: Measles - Past Surgical History Head Surgeries/Procedures: Reports: None HEENT Surgical History: Reports: Cataract Surgery, Oral Surgery, Other (See Below) Other HEENT Surgeries/Procedures: implanted teeth Cardiovascular Surgical History: Reports: None Respiratory Surgical History: Reports: None GI Surgical History: Reports: Appendectomy, Bariatric Procedure, Cholecystectomy, Colonoscopy, Hernia Repair/Other, Other (See Below) Other GI Surgeries/Procedures: spleenectomy Female Surgical History: Reports: None Endocrine Surgical History: Reports: None Neurological Surgical History: Reports: Other (See Below) Other Neurological Surgeries/Procedures: neck fx with surgery Musculoskeletal Surgical History: Reports: Knee Replacement, Other (See Below) Other Musculoskeletal Surgeries/Procedures:: neck surgery from fallJanuary, Oncologic Surgical History: Reports: None Dermatological Surgical History: Reports: None Social & Family History - Family History Family Medical History: No Pertinent Family History - Caffeine Use Caffeine Use: Reports: Coffee Caffeine Use Comment: 2 cups coffee/day - Living Situation & Occupation Living situation: Reports: Occupation: Retired ED ROS GENERAL - Review of Systems Review Of Systems: See Below Constitutional: Reports: No Symptoms HEENT: Reports: Other (Left mandibular pain) Respiratory: Reports: No Symptoms Cardiovascular: Reports: No Symptoms Endocrine: Reports: No Symptoms GI/Abdominal: Reports: No Symptoms : Reports: No Symptoms Musculoskeletal: Reports: Hand Pain (Left hand pain) Skin: Reports: Other (4.6 cm skin tear on the lateral left hand) Neurological: Reports: Difficulty Walking (Repeated falls) Psychiatric: Reports: No Symptoms Hematologic/Lymphatic: Reports: No Symptoms Immunologic: Reports: No Symptoms ED EXAM, SKIN/RASH Exam: See Below Exam Limited By: No Limitations General Appearance: Alert, Mild Distress Eye Exam: Bilateral Eye: EOMI, PERRL Nose: Normal Inspection Throat/Mouth: Normal Voice, No Airway Compromise, Other (Left mandibular pain in the general area of tooth 20 and 21. No obvious deformity. No ecchymosis. No malalignment of teeth.) Head: Atraumatic, Facial Tenderness (Left mandible) Neck: Normal Inspection, Supple Respiratory/Chest: No Respiratory Distress Cardiovascular: Normal Peripheral Pulses Extremities: Normal Range of Motion, Other (4.7 cm skin tear on the lateral left hand. Unfortunately there is nothing to repair as the skin is too thin to tack down and already a deep purple signifying vascular compromise to the epidermis.) Neurological: Alert, Oriented, No Motor/Sensory Deficits Psychiatric: Normal Affect, Normal Mood Skin: Wound/Incision (4.7 cm skin tear lateral aspect of the left hand) Location, Skin: Upper Extremity, Left Course - Vital Signs Last Recorded V/S: Last Vital Signs Temp 36.6 C 08/25/20 18:41 Pulse 77 08/25/20 18:41 Resp 16 08/25/20 18:41 BP 155/76 H 08/25/20 18:41 Pulse Ox 98 08/25/20 18:41 - Radiology Interpretation Free Text/Narrative:: I reviewed the CT of the facial bones and its report. There are no acute facial fractures. There is chronic sinusitis noted. - Re-Assessments/Exams Free Text/Narrative Re-Assessment/Exam: 08/25/20 20:00 the superficial laceration on the lateral left hand (skin tear) is nonviable and too thin to tack down. A Tegaderm was applied over this to protect the dermal layer. The patient continued to have some oozing from under the Tegaderm so Curlex and Coban was applied over the Tegaderm. This should hea l without much intervention. The patient does have a contusion on her chin, however, CT of the facial bones failed to demonstrate any osseous abnormalities. We will put her on a small amount of pain medicine for pain control. I am concerned about her recurrent falls. Today she fell when she tripped coming in from the [employer] landing in the kitchen under a chair. I will prescribe a walker for her to use to ambulate as I feel that her risk of falls is too high for even considering a cane at this point. The patient and are in agreement with this plan. Departure - Departure Time of Disposition: 20:03 Disposition: Home, Self-Care 01 Clinical Impression: Recurrent falls while walking, Contusion of left hand, initial encounter Skin tear of left hand without complication Qualifiers: Encounter type: initial encounter Qualified Code(s): S61.412A - Laceration without foreign body of left hand, initial encounter Contusion of jaw Qualifiers: Encounter type: initial encounter Qualified Code(s): S00.83XA - Contusion of other part of head, initial encounter - Discharge Information Instructions: Pain Medicine Instructions, [id number], Jaw Contusion, Fall Prevention in the Home, Adult, Nonsutured Laceration Care Referrals: Raoul Gann MD [Primary Care Provider] - Forms: ED Department Discharge Care Plan Goals: I would recommend taking Tylenol for pain control. You may take up to 6 tablets of extra strength Tylenol a day. I am sending you home with a new walker to you use to ambulate around the house. This will hopefully prevent further falling and injury. The nurse will go over with you how to manage the skin tear. Follow-up with your primary care provider next week to make sure that the hand is healing. Sepsis Event Note (ED) - Focused Exam Vital Signs: Vital Signs Temp Pulse Resp BP Pulse Ox 08/25/20 18:41 36.6 C 77 16 155/76 H 98 08/25/20 18:31 36.6 C 77 16 155/76 H 98 - Problem List & Annotations (1) Contusion of jaw SNOMED Code(s): 090705683, 471093858 Code(s): S00.83XA - CONTUSION OF OTHER PART OF HEAD, INITIAL ENCOUNTER Status: Acute Priority: High Current Visit: Yes Qualifiers: Encounter type: initial encounter Qualified Code(s): S00.83XA - Contusion of other part of head, initial encounter (2) Contusion of left hand, initial encounter SNOMED Code(s): 5546026 Code(s): S60.222A - CONTUSION OF LEFT HAND, INITIAL ENCOUNTER Status: Acute Priority: Medium Current Visit: Yes (3) Recurrent falls while walking SNOMED Code(s): 807624901, 109367918 Code(s): R29.6 - REPEATED FALLS Status: Acute Priority: High Current Visit: Yes (4) Skin tear of left hand without complication SNOMED Code(s): 766155876, 797488913 Code(s): S61.412A - LACERATION WITHOUT FOREIGN BODY OF LEFT HAND, INIT ENCNTR Status: Acute Priority: Medium Current Visit: Yes Qualifiers: Encounter type: initial encounter Qualified Code(s): S61.412A - Laceration without foreign body of left hand, initial encounter - Problem List Review Problem List Initiated/Reviewed/Updated: Yes
--- NOTE | 2020-08-25 19:50 | CRLCT ---
Indication: Fall left-sided jaw pain Technique: Facial bone CT scan Comparison: No comparison Findings: Prior changes of FESS. Opacification of the right maxillary sinus. Hypertrophic bony changes. Partial opacification ethmoid air cells. Mucosal thickening of the sphenoid sinus. Small amount of fluid in the right sphenoid sinus. Orbit and globe appear intact. No facial bone fracture visualized. Cervical fusion change partially seen. Soft tissue swelling over the left mandible Impression: No facial bone fracture. 2. Right maxillary ethmoid and sphenoid sinus disease. The Please note that all CT scans at this facility use dose modulation, iterative reconstruction, and/or weight-based dosing when appropriate to reduce radiation dose to as low as reasonably achievable. Dictated by Leticia Trevizo MD @ Aug 25 2020 7:42PM Signed by Dr. Leticia Trevizo @ Aug 25 2020 7:48PM
[2020-08-25] MEDS ORDERED: Acetaminophen 500 MG Tab PO ONE (20:03)
== END 2020-08-25 20:29 | disposition home or self-care (01) ==
LOC: JP.ED 18:20
DX: S61.412A Laceration without foreign body of left hand, initial encounter (principal); S00.83XA Contusion of other part of head, initial encounter; Z88.5 Allergy status to narcotic agent; Z88.2 Allergy status to sulfonamides; Z88.8 Allergy status to other drugs, medicaments and biological substances; Z88.6 Allergy status to analgesic agent; W18.39XA Other fall on same level, initial encounter
CPT/HCPCS: 70486; 99283; A9270

== ENCOUNTER 2020-09-12 22:28 | Emergency (ER) | payer MEDICARE, OTHER ==
[2020-09-12] MEDS ORDERED: Sodium Chloride 0.9% 10 ML Syringe FLUSH PRN (22:57)
[2020-09-12] MEDS ORDERED: Prochlorperazine 10 MG/2 ML SDV IVPUSH ONE (22:59)
[2020-09-12] MEDS ORDERED: fentaNYL 100 MCG/2 ML SDV IVPUSH ONE (22:59)
--- NOTE | 2020-09-12 23:04 | EDM.PDOC ---
ED HPI GENERAL MEDICAL PROBLEM - General Chief Complaint: Gastrointestinal Problem Stated Complaint: PAIN IN CHEST Time Seen by Provider: 09/12/20 22:52 Source of Information: Reports: Patient, Old Records History Limitations: Reports: No Limitations - History of Present Illness INITIAL COMMENTS - FREE TEXT/NARRATIVE: Kathya is a 75-year-old female who is known to me presenting to the ED for evaluation of acute onset of left upper quadrant abdominal pain, nausea, and vomiting. Patient had acute onset of symptoms about 3 hours prior to arrival and has had several episodes of dry heaving and emesis producing some phlegm. She denies any fever or chills. She has severe left upper quadrant abdominal pain. She reports having a normal bowel movement this morning since being put on bowel maintenance for chronic constipation. She does have a history of gastric bypass approximately 10 years ago. She has had intermittent episodes of similar symptoms in the past and was seen last month and evaluated for the same. She denies any shortness of breath or chest pain, cough, back pain, urinary urgency, frequency, or burning with urination. Left Upper Abdomen Pain Score (Numeric/FACES): 8 - Related Data Allergies Allergy/AdvReac Type Severity Reaction Status Date / Time amitriptyline Allergy Cannot Verified 09/12/20 22:44 Remember celecoxib Allergy Cannot Verified 09/12/20 22:44 Remember hydromorphone [From Dilaudid] Allergy Shaking Verified 09/12/20 22:44 lurasidone HCl [From Latuda] Allergy Cannot Verified 09/12/20 22:44 Remember Sulfa (Sulfonamide Allergy Rash Verified 09/12/20 22:44 Antibiotics) tramadol Allergy Itching Verified 09/12/20 22:44 Home Meds: Home Meds Cyanocobalamin (Vitamin B-12) [Vitamin B-12] 1,000 mcg IM ASDIRECTED 11/20/13 [History] Ondansetron [Zofran] 4 mg PO Q8H PRN 12/25/13 [History] LORazepam 0.25 mg PO BID PRN 10/08/18 [History] Acetaminophen [Tylenol Extra Strength] 1,000 mg PO Q4H PRN 02/13/19 [History] Cannabidiol (Cbd) Extract [CBD Oil] 1 appful PO BEDTIME 02/23/20 [History] Acetaminophen [Tylenol Extra Strength] 500 mg PO Q4H PRN #30 tab 08/25/20 [Rx] Ramelteon 8 mg PO DAILY 08/25/20 [History] Past Medical History HEENT History: Reports: Cataract, Impaired Vision, Sinusitis Cardiovascular History: Reports: Other (See Below) Other Cardiovascular History: varicose veins Respiratory History: Reports: None Gastrointestinal History: Reports: Chronic Constipation, GERD Genitourinary History: Reports: Renal Disease Other Genitourinary History: sees kidney specialist for function [employer] History: Reports: Musculoskeletal History: Reports: Arthritis, Back Pain, Chronic, Fracture Other Musculoskeletal History: spinal stenosis. cervical spine instability. left elbow FX Neurological History: Reports: Concussion, Migraines Psychiatric History: Reports: Anxiety, Depression, Panic Attack Other Psychiatric History: insomnia Endocrine/Metabolic History: Reports: Osteopenia, Other (See Below) Other Endocrine/Metabolic History: inherited spirocytosis Hematologic History: Reports: B12 Deficiency, Folic Acid, Other (See Below) Other Hematologic History: spiral cyctosis - hereditary Immunologic History: Reports: None Oncologic (Cancer) History: Reports: None Dermatologic History: Reports: None - Infectious Disease History Infectious Disease History: Reports: Measles - Past Surgical History Head Surgeries/Procedures: Reports: None HEENT Surgical History: Reports: Cataract Surgery, Oral Surgery, Other (See Below) Other HEENT Surgeries/Procedures: implanted teeth Cardiovascular Surgical History: Reports: None Respiratory Surgical History: Reports: None GI Surgical History: Reports: Appendectomy, Bariatric Procedure, Cholecystectomy, Colonoscopy, Hernia Repair/Other, Other (See Below) Other GI Surgeries/Procedures: spleenectomy Female Surgical History: Reports: None Endocrine Surgical History: Reports: None Neurological Surgical History: Reports: Other (See Below) Other Neurological Surgeries/Procedures: neck fx with surgery Musculoskeletal Surgical History: Reports: Knee Replacement, Other (See Below) Other Musculoskeletal Surgeries/Procedures:: neck surgery from fallJanuary, Oncologic Surgical History: Reports: None Dermatological Surgical History: Reports: None Social & Family History - Family History Family Medical History: No Pertinent Family History - Tobacco Use Tobacco Use Status *Q: Never Tobacco User - Caffeine Use Caffeine Use: Reports: Coffee, Soda Caffeine Use Comment: 2 cups coffee/day - Recreational Drug Use Recreational Drug Use: No - Living Situation & Occupation Living situation: Reports: Occupation: Retired ED ROS GENERAL - Review of Systems Review Of Systems: See Below Constitutional: Reports: No Symptoms, Decreased Appetite HEENT: Reports: No Symptoms Respiratory: Reports: No Symptoms Cardiovascular: Reports: No Symptoms Endocrine: Reports: No Symptoms GI/Abdominal: Reports: Abdominal Pain (Left upper quadrant), Constipation, Nausea, Vomiting : Reports: No Symptoms Musculoskeletal: Reports: No Symptoms Skin: Reports: No Symptoms Neurological: Reports: No Symptoms Psychiatric: Reports: Anxiety Hematologic/Lymphatic: Reports: No Symptoms Immunologic: Reports: No Symptoms ED EXAM, GI/ABD - Physical Exam Exam: See Below Exam Limited By: No Limitations General Appearance: Alert, Moderate Distress Eyes: Bilateral: EOMI Throat/Mouth: Normal Inspection, Normal Lips, Normal Voice, No Airway Compromise Head: Atraumatic, Normocephalic Neck: Normal Inspection, Supple Respiratory/Chest: No Respiratory Distress, Lungs Clear, Normal Breath Sounds Cardiovascular: Normal Peripheral Pulses, Regular Rate, Rhythm GI/Abdominal Exam: Normal Bowel Sounds, Soft, Non-Tender Extremities: Normal Inspection, Normal Range of Motion, No Pedal Edema Neurological: Alert, Oriented, Normal Cognition, No Motor/Sensory Deficits Psychiatric: Normal Affect, Anxious Skin Exam: Warm, Dry, Intact, Normal Color Lymphatic: No Adenopathy Course - Vital Signs Last Recorded V/S: Last Vital Signs Temp Pulse 70 09/13/20 00:41 Resp 16 09/12/20 22:51 BP 164/89 H 09/13/20 00:41 Pulse Ox 99 09/12/20 22:51 - Orders/Labs/Meds Orders: Active Orders 24 hr Category Date Time Status Sodium Chloride 0.9% [Saline Flush] Med 09/12/20 22:57 Active 10 ml FLUSH ASDIRECTED PRN Isolation [COMM] Stat Oth 09/12/20 22:58 Ordered Saline Lock Insert [OM.PC] Routine Oth 09/12/20 22:57 Ordered Medication Orders Sodium Chloride (Sodium Chloride 0.9% 10 Ml Syringe) 10 ml FLUSH ASDIRECTED PRN PRN Reason: Keep Vein Open Last Admin: 09/12/20 23:10 Dose: 10 ml Documented by: RANDY Labs: Laboratory Tests 09/12/20 09/12/20 09/12/20 Range/Units 23:14 23:14 23:14 WBC 9.4 (4.5-11.0) K/uL RBC 4.00 (3.30-5.50) M/uL Hgb 12.4 (12.0-15.0) g/dL Hct 38.9 (36.0-48.0) % MCV 97 (80-98) fL MCH 31 (27-31) pg MCHC 32 (32-36) % Plt Count 496 H (150-400) K/uL Neut % (Auto) 70 H (36-66) % Lymph % (Auto) 21 L (24-44) % [place] % (Auto) 8 H (2-6) % Eos % (Auto) 1 L (2-4) % Baso % (Auto) 1 (0-1) % Sodium 145 (140-148) mmol/L Potassium 4.6 (3.6-5.2) mmol/L Chloride 106 (100-108) mmol/L Carbon Dioxide 25 (21-32) mmol/L Anion Gap 14.1 H (5.0-14.0) mmol/L BUN 26 H (7-18) mg/dL Creatinine 1.1 H (0.6-1.0) mg/dL Est Cr Clr Drug Dosing 35.99 mL/min Estimated GFR (MDRD) 48 L (>60) Glucose 94 (74-106) mg/dL Lactic Acid 1.5 (0.4-2.0) mmol/L Calcium 9.2 (8.5-10.1) mg/dL Total Bilirubin 0.6 (0.2-1.0) mg/dL AST 23 (15-37) U/L ALT 20 (12-78) U/L Alkaline Phosphatase 100 (46-116) U/L C-Reactive Protein (0.0-0.3) mg/dL Total Protein 6.7 (6.4-8.2) g/dL Albumin 3.3 L (3.4-5.0) g/dL Globulin 3.4 (2.3-3.5) g/dL Albumin/Globulin Ratio 1.0 L (1.2-2.2) Urine Color (YELLOW) Urine Appearance (CLEAR) Urine pH (5.0-8.0) Ur Specific [place] (1.008-1.030) Urine Protein (NEGATIVE) mg/dL Urine Glucose (UA) (NEGATIVE) mg/dL Urine Ketones (NEGATIVE) mg/dL Urine Occult Blood (NEGATIVE) Urine Nitrite (NEGATIVE) Urine Bilirubin (NEGATIVE) Urine Urobilinogen (0.2-1.0) EU/dL Ur Leukocyte Esterase (NEGATIVE) Urine RBC (0-5) Urine WBC (0-5) Ur Epithelial Cells Amorphous Sediment Urine Bacteria Urine Mucus 09/12/20 09/13/20 Range/Units 23:14 00:06 WBC (4.5-11.0) K/uL RBC (3.30-5.50) M/uL Hgb (12.0-15.0) g/dL Hct (36.0-48.0) % MCV (80-98) fL MCH (27-31) pg MCHC (32-36) % Plt Count (150-400) K/uL Neut % (Auto) (36-66) % Lymph % (Auto) (24-44) % [place] % (Auto) (2-6) % Eos % (Auto) (2-4) % Baso % (Auto) (0-1) % Sodium (140-148) mmol/L Potassium (3.6-5.2) mmol/L Chloride (100-108) mmol/L Carbon Dioxide (21-32) mmol/L Anion Gap (5.0-14.0) mmol/L BUN (7-18) mg/dL Creatinine (0.6-1.0) mg/dL Est Cr Clr Drug Dosing mL/min Estimated GFR (MDRD) (>60) Glucose (74-106) mg/dL Lactic Acid (0.4-2.0) mmol/L Calcium (8.5-10.1) mg/dL Total Bilirubin (0.2-1.0) mg/dL AST (15-37) U/L ALT (12-78) U/L Alkaline Phosphatase (46-116) U/L C-Reactive Protein 0.83 H (0.0-0.3) mg/dL Total Protein (6.4-8.2) g/dL Albumin (3.4-5.0) g/dL Globulin (2.3-3.5) g/dL Albumin/Globulin Ratio (1.2-2.2) Urine Color Yellow (YELLOW) Urine Appearance Cloudy A (CLEAR) Urine pH 7.0 (5.0-8.0) Ur Specific [place] 1.020 (1.008-1.030) Urine Protein Negative (NEGATIVE) mg/dL Urine Glucose (UA) 100 H (NEGATIVE) mg/dL Urine Ketones Negative (NEGATIVE) mg/dL Urine Occult Blood Small H (NEGATIVE) Urine Nitrite Negative (NEGATIVE) Urine Bilirubin Negative (NEGATIVE) Urine Urobilinogen 1.0 (0.2-1.0) EU/dL Ur Leukocyte Esterase Small H (NEGATIVE) Urine RBC 5-10 H (0-5) Urine WBC 5-10 H (0-5) Ur Epithelial Cells Many Amorphous Sediment Moderate Urine Bacteria Moderate Urine Mucus Moderate Meds: Medications Generic Name Dose Route Start Last Admin Trade Name Freq PRN Reason Stop Dose Admin Sodium Chloride 10 ml 09/12/20 22:57 09/12/20 23:10 Sodium Chloride 0.9% 10 Ml Syringe FLUSH 10 ml ASDIRECTED PRN Administration Keep Vein Open Discontinued Medications Generic Name Dose Route Start Last Admin Trade Name Freq PRN Reason Stop Dose Admin Al Hydroxide/Mg Hydroxide 30 ml 09/13/20 00:17 09/13/20 00:38 Aluminum Hydroxide/Magnesium Hydroxide/Simethicone Susp 30 Ml Cup PO 09/13/20 00:18 30 ml ONETIME ONE Administration Fentanyl 50 mcg 09/12/20 22:59 09/12/20 23:11 Fentanyl 100 Mcg/2 Ml Sdv IVPUSH 09/12/20 23:00 50 mcg ONETIME ONE Administration Fentanyl 50 mcg 09/13/20 00:17 09/13/20 00:39 Fentanyl 100 Mcg/2 Ml Sdv IVPUSH 09/13/20 00:18 50 mcg ONETIME ONE Administration Sodium Chloride 70 mls @ 3 mls/sec 09/12/20 23:38 09/12/20 23:46 Normal Saline IV 09/12/20 23:39 3 mls/sec ASDIRECTED STA Administration Iopamidol 88 ml 09/12/20 23:38 09/12/20 23:46 Iopamidol 612 Mg/Ml 100 Ml Bottle IV 09/12/20 23:39 100 ml . DIRECTED STA Administration Prochlorperazine Edisylate 10 mg 09/12/20 22:59 09/12/20 23:13 Prochlorperazine 10 Mg/2 Ml Sdv IVPUSH 09/12/20 23:00 10 mg ONETIME ONE Administration - Re-Assessments/Exams Free Text/Narrative Re-Assessment/Exam: 09/13/20 01:[address] of the abdomen and pelvis with contrast. She does have a copious amount of stool throughout the colon as well as a copious amount of flatus. I suspect that her pain is likely due to the flatus especially given the acute pain in the left upper quadrant where there is a large concentration of this. She was given Maalox 30 mL by mouth to help break up the flatus. She has received several aliquots of fentanyl 50 mcg IV with improvement in her pain. She does have a urinary tract infection by lab with a urinalysis showing 5-10 WBCs and 5-10 RBCs with leukocyte esterase positive. We will put her on cephalexin for this infection. Otherwise, the patient's labs are unremarkable. At this time I believe she is suitable for discharge home in satisfactory condition. Occasions return to the ED were discussed and all questions were answered prior to discharge. Departure - Departure Time of Disposition: 01:40 Disposition: Home, Self-Care 01 Clinical Impression: Left upper quadrant abdominal pain, Excessive flatus, Constipation, slow transit Urinary tract infection Qualifiers: Urinary tract infection type: acute cystitis Hematuria presence: without hematuria Qualified Code(s): N30.00 - Acute cystitis without hematuria - Discharge Information Instructions: Urinary Tract Infection, Adult, [id number], Abdominal Pain, Adult, [id number], Constipation, Adult Referrals: Raoul Gann MD [Primary Care Provider] - Forms: ED Department Discharge Care Plan Goals: Your work-up today shows that you still have a fair amount of constipation and your pain is likely due to excessive. We did find that you had a urinary tract infection. I am putting you on cephalexin 1 tablet twice daily for 7 days. This has been sent out to the [facility]. Sepsis Event Note (ED) - Evaluation Sepsis Screening Result: No Definite Risk - Focused Exam Vital Signs: Vital Signs Pulse Resp BP Pulse Ox 09/13/20 00:41 70 164/89 H 09/13/20 00:03 67 177/89 H 09/12/20 22:51 63 16 150/81 H 99 09/12/20 22:40 63 16 150/81 H 99 - Problem List & Annotations (1) Constipation, slow transit SNOMED Code(s): 21785545 Code(s): K59.01 - SLOW TRANSIT CONSTIPATION Status: Chronic Priority: Medium Current Visit: Yes (2) Excessive flatus SNOMED Code(s): 67320217 Code(s): R14.3 - FLATULENCE Status: Acute Priority: High Current Visit: Yes (3) Left upper quadrant abdominal pain SNOMED Code(s): 619255231 Code(s): R10.12 - LEFT UPPER QUADRANT PAIN Status: Acute Priority: High Current Visit: Yes (4) Urinary tract infection SNOMED Code(s): 39899644 Code(s): N39.0 - URINARY TRACT INFECTION, SITE NOT SPECIFIED Status: Acute Priority: Medium Current Visit: Yes Qualifiers: Urinary tract infection type: acute cystitis Hematuria presence: without hematuria Qualified Code(s): N30.00 - Acute cystitis without hematuria - Problem List Review Problem List Initiated/Reviewed/Updated: Yes - My Orders Last 24 Hours: My Active Orders 09/12/20 22:57 Sodium Chloride 0.9% [Saline Flush] 10 ml FLUSH ASDIRECTED PRN Saline Lock Insert [OM.PC] Routine 09/12/20 22:58 Isolation [COMM] Stat - Assessment/Plan Last 24 Hours: My Active Orders 09/12/20 22:57 Sodium Chloride 0.9% [Saline Flush] 10 ml FLUSH ASDIRECTED PRN Saline Lock Insert [OM.PC] Routine 09/12/20 22:58 Isolation [COMM] Stat
[2020-09-12] MEDS ORDERED: Iopamidol 612 MG/ML 100 ML Bottle IV STA (23:38)
[2020-09-13] MEDS ORDERED: fentaNYL 100 MCG/2 ML SDV IVPUSH ONE (00:17)
[2020-09-13] MEDS ORDERED: Aluminum Hydroxide/Magnesium Hydroxide/Simethicone Susp 30 ML Cup PO ONE (00:17)
[2020-09-13 00:41] VITALS: BP 164/89; PULSE 70
--- NOTE | 2020-09-13 00:44 | CRLCT ---
INDICATION: Left upper quadrant pain and vomiting TECHNIQUE: CT abdomen and pelvis acquired with 88 cc Isovue 300 IV contrast. COMPARISON: August 22, 2019 FINDINGS: Lower chest: Coronary artery calcifications. Liver: Pneumobilia. Spleen: Surgically absent. Pancreas: Unremarkable. Gallbladder and bile ducts: S/p cholecystectomy. Adrenal glands: Unremarkable. Kidneys: Unremarkable. GI tract: Status post gastric bypass procedure. Appendix is surgically absent. Large amount of feces throughout the colon. Dilatation of a small bowel loop in the left upper quadrant measuring 5.5 cm in diameter, similar in appearance to August 22, 2019. Vascular structures: Moderate atherosclerotic disease. Lymph nodes: Unremarkable. Miscellaneous: Unremarkable. No free air or significant free fluid. Pelvic Organs: Unremarkable. Bones: Vertebroplasty material in the L2 and L3 vertebral bodies. Moderate multilevel degenerative disc and facet changes. IMPRESSION: Large amount of feces in the colon. Short-segment dilatation of a small bowel loop in the left upper quadrant, similar in appearance compared to August 22, 2019 and May 18, 2016. Stable pneumobilia. Coronary artery disease. Status post splenectomy, appendectomy, and cholecystectomy. Vertebroplasty material in the L2 and L3 vertebral bodies. Please note that all CT scans at this facility use dose modulation, iterative reconstruction, and/or weight-based dosing when appropriate to reduce radiation dose to as low as reasonably achievable. Dictated by Sigrid Avila MD @ 09/13/2020 12:32:09 AM (Electronically Signed)
[2020-09-13] MEDS ORDERED: Cephalexin 250 MG/5 ML Susp 100 ML Bottle PO ONE (01:47)
[2020-09-13] MEDS ORDERED: Cephalexin 250 MG Cap PO ONE (01:49)
== END 2020-09-13 01:59 | disposition home or self-care (01) ==
LOC: JP.ED 22:28
DX: N30.00 Acute cystitis without hematuria (principal); R14.3 Flatulence; K59.01 Slow transit constipation; Z88.8 Allergy status to other drugs, medicaments and biological substances; Z88.5 Allergy status to narcotic agent; Z88.2 Allergy status to sulfonamides
CPT/HCPCS: 36415; 74177; 80053; 81001; 83605; 85025; 86140; 96374; 96375; 96376; 99284; A9270; J0780; J3010; Q9967

== ENCOUNTER 2021-02-28 16:54 | Observation (INO) | payer MEDICARE, OTHER ==
--- NOTE | 2021-02-28 18:39 | EDM.PDOC ---
<Israel Vaz - Last Filed: 02/28/21 22:42> ED HPI GENERAL MEDICAL PROBLEM - General Chief Complaint: Abdominal Pain Stated Complaint: FALL VIA NORTH Time Seen by Provider: 02/28/21 18:20 Source of Information: Reports: Family, Old Records History Limitations: Reports: No Limitations - History of Present Illness INITIAL COMMENTS - FREE TEXT/NARRATIVE: 76 yo female presents via EMS for weakness, mild confusion, frequent falls, BECKH[place]. She has been to her primary a couple times over the pasts several weeks and only some of this was shared with them. No recent testing. No fever. The is not able to care for her on his own anymore. The daughter is here visiting through the weekend to assist, she lives OOT. There was another fall today, with out obvious injury. Onset: Gradual, Unknown/Unsure Duration: Week(s):, Getting Worse Location: Reports: Generalized Quality: Reports: Other (unsure) Severity: Moderate Improves with: Reports: None Worsens with: Reports: Other (time) Context: Reports: Other (See HPI) Associated Symptoms: Reports: Malaise, Shortness of Breath (with exertion), Weakness. 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 (see below) (none) - Related Data Allergies Allergy/AdvReac Type Severity Reaction Status Date / Time amitriptyline Allergy Cannot Verified 02/28/21 17:01 Remember celecoxib Allergy Cannot Verified 02/28/21 17:01 Remember hydromorphone [From Dilaudid] Allergy Shaking Verified 02/28/21 17:01 lurasidone HCl [From Latuda] Allergy Cannot Verified 02/28/21 17:01 Remember Sulfa (Sulfonamide Allergy Rash Verified 02/28/21 17:01 Antibiotics) tramadol Allergy Itching Verified 02/28/21 17:01 Home Meds: Home Meds Cyanocobalamin (Vitamin B-12) [Vitamin B-12] 1,000 mcg IM ASDIRECTED 11/20/13 [History] LORazepam 0.25 mg PO BID PRN 10/08/18 [History] Acetaminophen [Tylenol Extra Strength] 1,000 mg PO Q4H PRN 02/13/19 [History] Cannabidiol (Cbd) Extract [CBD Oil] 1 appful PO BEDTIME 02/23/20 [History] Acetaminophen [Tylenol Extra Strength] 500 mg PO Q4H PRN #30 tab 08/25/20 [Rx] Ramelteon 8 mg PO DAILY 08/25/20 [History] Ibuprofen 800 mg PO Q6H 02/28/21 [History] Past Medical History HEENT History: Reports: Cataract, Impaired Vision, Sinusitis Cardiovascular History: Reports: Other (See Below) Other Cardiovascular History: varicose veins Respiratory History: Reports: None Gastrointestinal History: Reports: Chronic Constipation, GERD Genitourinary History: Reports: Renal Disease Other Genitourinary History: sees kidney specialist for function 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 cervical spine instability. left elbow FX Neurological History: Reports: Concussion, Migraines Psychiatric History: Reports: Anxiety, Depression, Panic Attack Other Psychiatric History: insomnia Endocrine/Metabolic History: Reports: Osteopenia, Other (See Below) Other Endocrine/Metabolic History: inherited spirocytosis Hematologic History: Reports: B12 Deficiency, Folic Acid, Other (See Below) Other Hematologic History: spiral cyctosis - hereditary Immunologic History: Reports: None Oncologic (Cancer) History: Reports: None Dermatologic History: Reports: None - Infectious Disease History Infectious Disease History: Reports: Measles - Past Surgical History Head Surgeries/Procedures: Reports: None HEENT Surgical History: Reports: Cataract Surgery, Oral Surgery, Other (See Below) Other HEENT Surgeries/Procedures: implanted teeth Cardiovascular Surgical History: Reports: None Respiratory Surgical History: Reports: None GI Surgical History: Reports: Appendectomy, Bariatric Procedure, Cholecystec lula, Colonoscopy, Hernia Repair/Other, Other (See Below) Other GI Surgeries/Procedures: spleenectomy Female Surgical History: Reports: None Endocrine Surgical History: Reports: None Neurological Surgical History: Reports: Other (See Below) Other Neurological Surgeries/Procedures: neck fx with surgery Musculoskeletal Surgical History: Reports: Knee Replacement, Other (See Below) Other Musculoskeletal Surgeries/Procedures:: neck surgery from fallJanuary, Oncologic Surgical History: Reports: None Dermatological Surgical History: Reports: None Social & Family History - Family History Family Medical History: No Pertinent Family History - Tobacco Use Tobacco Use Status *Q: Never Tobacco User - Caffeine Use Caffeine Use: Reports: Coffee, Soda Caffeine Use Comment: 2 cups coffee/day - Recreational Drug Use Recreational Drug Use: No - Living Situation & Occupation Living situation: Reports: Occupation: Retired ED ROS GENERAL - Review of Systems Review Of Systems: Unable To Obtain Reason Not Obtained: patient mildly confused Constitutional: Reports: Malaise, Weakness. Denies: Fever HEENT: Reports: No Symptoms Respiratory: Reports: No Symptoms Cardiovascular: Reports: Dyspnea on Exertion. Denies: Chest Pain Endocrine: Reports: No Symptoms ED EXAM, GENERAL - Physical Exam Exam: See Below Exam Limited By: No Limitations General Appearance: Alert, WD/WN, No Apparent Distress Eye Exam: Bilateral Eye: Normal Inspection Ears: Normal External Exam, Normal Canal, Hearing Grossly Normal Ear Exam: Bilateral Ear: Auricle Normal, Canal Normal Nose: Normal Inspection, No Blood Throat/Mouth: Normal Inspection, Normal Lips, Normal Oropharynx, Normal Voice, No Airway Compromise Head: Atraumatic, Normocephalic Neck: Normal Inspection Respiratory/Chest: No Respiratory Distress, Lungs Clear, Normal Breath Sounds, No Accessory Muscle Use Cardiovascular: Regular Rate, Rhythm, No Edema GI/Abdominal: Normal Bowel Sounds, Soft, Non-Tender, No Distention Back Exam: Normal Inspection. No: CVA Tenderness (R), CVA Tenderness (L) Extremities: Normal Inspection, Normal Range of Motion, Non-Tender, No Pedal Edema Neurological: Alert, CN II-XII Intact, No Motor/Sensory Deficits, Inattentive, Slow to Respond. No: Normal Cognition Psychiatric: Normal Affect, Normal Mood Skin Exam: Warm, Dry, Intact, Normal Color, No Rash Course - Radiology Interpretation Free Text/Narrative:: CXR-neg Flat abd X-ray-neg - Re-Assessments/Exams Free Text/Narrative Re-Assessment/Exam: 02/28/21 22:43 Too weak to walk with a walker here in the ER. Will need to keep her and not send her home. Departure - Departure Disposition: Admitted As Inpatient 65 Condition: Fair Clinical Impression: Weakness, Mild dehydration, Hypokalemia UTI (urinary tract infection) Qualifiers: Urinary tract infection type: acute cystitis Hematuria presence: without hematuria Qualified Code(s): N30.00 - Acute cystitis without hematuria Elevated WBC count Qualifiers: Leukocytosis type: bandemia Qualified Code(s): D72.825 - Bandemia CRF (chronic renal failure) Qualifiers: Chronic kidney disease stage: stage 3 (moderate) Chronic kidney disease stage 3 subtype: stage 3b (GFR 30-44) Qualified Code(s): N18.32 - Chronic kidney disease, stage 3b - Discharge Information Referrals: Raoul Gann MD [Primary Care Provider] - Forms: ED Department Discharge <OfficerJordan - Last Filed: 03/01/21 08:53> Course - Vital Signs Last Recorded V/S: Last Vital Signs Temp 97.0 F 03/01/21 06:18 Pulse 71 03/01/21 06:18 Resp 18 03/01/21 06:18 BP 140/75 03/01/21 06:18 Pulse Ox 98 03/01/21 06:18 - Orders/Labs/Meds Orders: Active Orders 24 hr Category Date Time Status Regular Diet [DIET] Diet 03/01/21 Breakfast Active Abdomen 1V Flat [CR] Stat Exams 02/28/21 19:55 Taken Chest 2V [CR] Stat Exams 02/28/21 19:48 Taken CULTURE BLOOD [BC] Stat Lab 02/28/21 21:00 Received CULTURE BLOOD [BC] Stat Lab 02/28/21 21:05 Received CULTURE URINE [RM] Stat Lab 02/28/21 19:00 Received NS + KCl 20mEq/L [Normal Saline with 20 mEq KCl] 1,000 Med 02/28/21 19:45 Active ml IV ASDIRECTED Sodium Chloride 0.9% [Normal Saline] 1,000 ml Med 02/28/21 23:00 Active IV ASDIRECTED Medication Orders Potassium Chloride/Sodium Chloride (Normal Saline With 20 Meq Kcl) 1,000 mls @ 1,000 mls/hr IV ASDIRECTED [place] Last Admin: 02/28/21 20:27 Dose: 1,000 mls/hr Documented by: TRENTON Sodium Chloride (Normal Saline) 1,000 mls @ 100 mls/hr IV ASDIRECTED [place] Last Admin: 02/28/21 23:02 Dose: 100 mls/hr Documented by: TR[place]ON Labs: Laboratory Tests 02/28/21 02/28/21 02/28/21 Range/Units 17:16 18:50 18:53 WBC 19.2 H (4.5-11.0) K/uL RBC 4.20 (3.30-5.50) M/uL Hgb 13.8 (12.0-15.0) g/dL Hct 39.4 (36.0-48.0) % MCV 94 (80-98) fL MCH 33 H (27-31) pg MCHC 35 (32-36) % Plt Count 630 H (150-400) K/uL Sodium (140-148) mmol/L Potassium (3.6-5.2) mmol/L Chloride (100-108) mmol/L Carbon Dioxide (21-32) mmol/L Anion Gap (5.0-14.0) mmol/L BUN (7-18) mg/dL Creatinine (0.6-1.0) mg/dL Est Cr Clr Drug Dosing mL/min Estimated GFR (MDRD) (>60) Glucose (74-106) mg/dL Lactic Acid (0.4-2.0) mmol/L Calcium (8.5-10.1) mg/dL Magnesium 2.2 (1.8-2.4) mg/dL Troponin I (0.000-0.056) ng/mL C-Reactive Protein (0.0-0.3) mg/dL NT-Pro-B Natriuret Pep (5-450) pg/mL Urine Color (YELLOW) Urine Appearance (CLEAR) Urine pH (5.0-8.0) Ur Specific [place] (1.008-1.030) Urine Protein (NEGATIVE) mg/dL Urine Glucose (UA) (NEGATIVE) mg/dL Urine Ketones (NEGATIVE) mg/dL Urine Occult Blood (NEGATIVE) Urine Nitrite (NEGATIVE) Urine Bilirubin (NEGATIVE) Urine Urobilinogen (0.2-1.0) EU/dL Ur Leukocyte Esterase (NEGATIVE) Urine RBC (0-5) Urine WBC (0-5) Ur Epithelial Cells Amorphous Sediment Urine Bacteria Urine Mucus Urine Other SARS-CoV-2 RNA (FLO) Negative (NEGATIVE) 02/28/21 02/28/21 02/28/21 Range/Units 18:53 18:53 19:14 WBC (4.5-11.0) K/uL RBC (3.30-5.50) M/uL Hgb (12.0-15.0) g/dL Hct (36.0-48.0) % MCV (80-98) fL MCH (27-31) pg MCHC (32-36) % Plt Count (150-400) K/uL Sodium 142 (140-148) mmol/L Potassium 3.1 L (3.6-5.2) mmol/L Chloride 109 H (100-108) mmol/L Carbon Dioxide 14 L (21-32) mmol/L Anion Gap 22.1 H (5.0-14.0) mmol/L BUN 37 H (7-18) mg/dL Creatinine 1.5 H (0.6-1.0) mg/dL Est Cr Clr Drug Dosing 27.12 mL/min Estimated GFR (MDRD) 34 L (>60) Glucose 101 (74-106) mg/dL Lactic Acid (0.4-2.0) mmol/L Calcium 9.0 (8.5-10.1) mg/dL Magnesium (1.8-2.4) mg/dL Troponin I < 0.017 (0.000-0.056) ng/mL C-Reactive Protein 0.76 H (0.0-0.3) mg/dL NT-Pro-B Natriuret Pep 1162 H (5-450) pg/mL Urine Color (YELLOW) Urine Appearance (CLEAR) Urine pH (5.0-8.0) Ur Specific [place] (1.008-1.030) Urine Protein (NEGATIVE) mg/dL Urine Glucose (UA) (NEGATIVE) mg/dL Urine Ketones (NEGATIVE) mg/dL Urine Occult Blood (NEGATIVE) Urine Nitrite (NEGATIVE) Urine Bilirubin (NEGATIVE) Urine Urobilinogen (0.2-1.0) EU/dL Ur Leukocyte Esterase (NEGATIVE) Urine RBC (0-5) Urine WBC (0-5) Ur Epithelial Cells Amorphous Sediment Urine Bacteria Urine Mucus Urine Other SARS-CoV-2 RNA (FLO) (NEGATIVE) 02/28/21 02/28/21 03/01/21 Range/Units 19:35 19:49 05:30 WBC (4.5-11.0) K/uL RBC (3.30-5.50) M/uL Hgb (12.0-15.0) g/dL Hct (36.0-48.0) % MCV (80-98) fL MCH (27-31) pg MCHC (32-36) % Plt Count (150-400) K/uL Sodium 145 (140-148) mmol/L Potassium 3.3 L (3.6-5.2) mmol/L Chloride 114 H (100-108) mmol/L Carbon Dioxide 12 L (21-32) mmol/L Anion Gap 22.3 H (5.0-14.0) mmol/L BUN 30 H (7-18) mg/dL Creatinine 1.4 H (0.6-1.0) mg/dL Est Cr Clr Drug Dosing 29.06 mL/min Estimated GFR (MDRD) 36 L (>60) Glucose 74 (74-106) mg/dL Lactic Acid 1.1 (0.4-2.0) mmol/L Calcium 8.3 L (8.5-10.1) mg/dL Magnesium (1.8-2.4) mg/dL Troponin I (0.000-0.056) ng/mL C-Reactive Protein (0.0-0.3) mg/dL NT-Pro-B Natriuret Pep (5-450) pg/mL Urine Color Yellow (YELLOW) Urine Appearance Clear (CLEAR) Urine pH 6.0 (5.0-8.0) Ur Specific [place] 1.025 (1.008-1.030) Urine Protein 100 H (NEGATIVE) mg/dL Urine Glucose (UA) Negative (NEGATIVE) mg/dL Urine Ketones Trace H (NEGATIVE) mg/dL Urine Occult Blood Trace-lysed H (NEGATIVE) Urine Nitrite Negative (NEGATIVE) Urine Bilirubin Small H (NEGATIVE) Urine Urobilinogen 0.2 (0.2-1.0) EU/dL Ur Leukocyte Esterase Small H (NEGATIVE) Urine RBC 0-5 (0-5) Urine WBC >100 H (0-5) Ur Epithelial Cells Moderate Amorphous Sediment Not seen Urine Bacteria Not seen Urine Mucus Not seen Urine Other See note SARS-CoV-2 RNA (FLO) (NEGATIVE) Meds: Medications Generic Name Dose Route Start Last Admin Trade Name Freq PRN Reason Stop Dose Admin Potassium Chloride/Sodium Chloride 1,000 mls @ 1,000 mls/hr 02/28/21 19:45 02/28/21 20:27 Normal Saline With 20 Meq Kcl IV 1,000 mls/hr ASDIRECTED [place] Administration Sodium Chloride 1,000 mls @ 100 mls/hr 02/28/21 23:00 02/28/21 23:02 Normal Saline IV 100 mls/hr ASDIRECTED [place] Administration Discontinued Medications Generic Name Dose Route Start Last Admin Trade Name Freq PRN Reason Stop Dose Admin Acetaminophen 1,000 mg 02/28/21 20:31 02/28/21 20:35 Acetaminophen 500 Mg Tab PO 02/28/21 20:32 1,000 mg ONETIME ONE Administration Hydromorphone HCl 1 mg 02/28/21 22:42 02/28/21 23:03 Hydromorphone 1 Mg/Ml Syringe IVPUSH 02/28/21 22:43 1 mg ONETIME ONE Administration Ceftriaxone Sodium 1 gm/ 50 mls @ 100 mls/hr 02/28/21 20:33 02/28/21 20:45 Sodium Chloride IV 02/28/21 21:02 100 mls/hr ONETIME ONE Administration Lactated Ringer's 1,000 mls @ 100 mls/hr 02/28/21 23:00 Ringers, Lactated IV ASDIRECTED [facility] Ketorolac Tromethamine 15 mg 02/28/21 20:31 02/28/21 20:36 Ketorolac 30 Mg/Ml Sdv IVPUSH 02/28/21 20:32 15 mg ONETIME ONE Administration Potassium Chloride 20 meq 02/28/21 20:32 02/28/21 20:35 Potassium Chloride 20 Meq Tab.Er PO 02/28/21 20:33 20 meq ONETIME ONE Administration Potassium Chloride 20 meq 02/28/21 21:36 02/28/21 22:02 Potassium Chloride 20 Meq Tab.Er PO 02/28/21 21:37 20 meq ONETIME ONE Administration Potassium Chloride 20 meq 03/01/21 06:29 03/01/21 07:37 Potassium Chloride 20 Meq Tab.Er PO 03/01/21 06:30 20 meq ONETIME ONE Administration Departure - Departure Time of Disposition: 08:53 Sepsis Event Note (ED) - Focused Exam Vital Signs: Vital Signs Temp Pulse Resp BP Pulse Ox 03/01/21 06:18 97.0 F 71 18 140/75 98 03/01/21 03:39 98.1 F 77 16 139/58 L 97 03/01/21 00:39 73 12 112/60 98 02/28/21 20:59 77 165/109 H - Assessment/Plan Plan: Assessment Acuity = acute Site and laterality = urinary tract infection Etiology = probable bacterial cause Manifestations = weakness and confusion Location of injury = Home Lab values = WBC elevated 19.2 consistent leukocytosis, potassium initially 3.1 after initial treatment up to 3.3 still consistent with hypokalemia creatinine elevated 1.5 now down to 1.4 after treatment consistent with acute renal failure stage T3a CRP slightly elevated 0.76 BNP elevated 1162 consistent with fluid overload type pattern urinalysis positive for leukocyte esterase greater than 100 WBCs consistent with a urinary tract infection Covid was negative Plan Call discussed case with hospitalist on-call cat agreed to come evaluate patient emergency department blood cultures and initial 1 g Rocephin given in the emergency This note was dictated using App [employer] voice recognition software please call with any questions on syntax or grammar.
[2021-02-28] MEDS ORDERED: NS + KCl 20mEq/L 1,000 ML IV SCH (19:45)
[2021-02-28] MEDS ORDERED: Ketorolac 30 MG/ML SDV IVPUSH ONE (20:31)
[2021-02-28] MEDS ORDERED: Acetaminophen 500 MG Tab PO ONE (20:31)
[2021-02-28] MEDS ORDERED: Potassium Chloride 20 MEQ Tab.ER PO ONE ×2 (20:32→21:36)
[2021-02-28] MEDS ORDERED: cefTRIAXone 1 GM in Sodium Chloride 0.9% 50 ML IV ONE (20:33)
[2021-02-28] MEDS ORDERED: HYDROmorphone 1 MG/ML Syringe IVPUSH ONE (22:42)
[2021-02-28] MEDS ORDERED: Sodium Chloride 0.9% 1,000 ML IV SCH (23:00)
[2021-02-28] MEDS ORDERED: Lactated Ringers 1,000 ML IV SCH (23:00)
[2021-03-01] MEDS ORDERED: Potassium Chloride 20 MEQ Tab.ER PO ONE (06:29)
[2021-03-01] MEDS ORDERED: LORazepam 0.5 MG Tab PO PRN (13:46)
[2021-03-01] MEDS ORDERED: Dexamethasone 4 MG/ML SDV IVPUSH SCH ×2 (14:00→14:15)
[2021-03-01] MEDS ORDERED: Acetaminophen 325 MG Tab PO PRN (14:14)
[2021-03-01] MEDS ORDERED: Morphine 2 MG/ML SYRINGE IVPUSH PRN (14:17)
[2021-03-01] MEDS: Acetaminophen/HYDROcodone 325-5 MG Tab PO PRN ×2 (14:53→21:29)
--- NOTE | 2021-03-01 17:12 | PCM.HP.2 ---
H&P History of Present Illness - General Date of Service: 03/01/21 Admit Problem/Dx: Admission Diagnosis/Problem Admission Diagnosis/Problem Weakness Source of Information: Patient, Family History Limitations: Reports: No Limitations - History of Present Illness Initial Comments - Free Text/Narative: Ms. Herrera is a 76-year-old female who presents with weakness. She states that about a week ago she had a fall and she was seen by her primary care doctor for the fall. She was diagnosed with vertebral compression fractures and told to take Tylenol or Motrin for pain. She is not sure which vertebra were effective. Since that time she has only been in bed or up in a chair. She is not able to get to the chair herself her has had to help her do this. She has b ecome increasingly weak since then and her family was concerned as she has not been able to get out of bed. She states that she has a history of multiple falls with different injuries. She has had to have vertebroplasty to her lumbar spine in the past. She states that when she stands up she will go to walk and then feel dizzy/lightheaded and just go down. Her expressed to the physician in the emergency department that he would not be able to take care of her anymore. She is here with her daughter from the [facility] who is visiting over the weekend. She denies any symptoms of urinary tract infection including urgency, frequency, and burning. In the emergency department there was some concern for a urinary tract infection however her specimen was contaminated. She was given a dose of antibiotic and given fluids. She had x-rays of the chest abdomen and pelvis done that are pending read. She did have an elevated white blood cell count as well. Middle Back Pain Score (Numeric/FACES): 6 - Related Data Allergies/Adverse Reactions: Allergies Allergy/AdvReac Type Severity Reaction Status Date / Time amitriptyline Allergy Cannot Verified 02/28/21 17:01 Remember celecoxib Allergy Cannot Verified 02/28/21 17:01 Remember hydromorphone [From Dilaudid] Allergy Shaking Verified 02/28/21 17:01 lurasidone HCl [From Latuda] Allergy Cannot Verified 02/28/21 17:01 Remember Sulfa (Sulfonamide Allergy Rash Verified 02/28/21 17:01 Antibiotics) tramadol Allergy Itching Verified 02/28/21 17:01 Home Medications: Home Meds Cyanocobalamin (Vitamin B-12) [Vitamin B-12] 1,000 mcg IM ASDIRECTED 11/20/13 [History] LORazepam 0.25 mg PO BID PRN 10/08/18 [History] Acetaminophen [Tylenol Extra Strength] 1,000 mg PO Q4H PRN 02/13/19 [History] Cannabidiol (Cbd) Extract [CBD Oil] 1 appful PO BEDTIME 02/23/20 [History] Acetaminophen [Tylenol Extra Strength] 500 mg PO Q4H PRN #30 tab 08/25/20 [Rx] Ramelteon 8 mg PO DAILY 08/25/20 [History] Ibuprofen 800 mg PO Q6H 02/28/21 [History] Venlafaxine [Effexor] 100 mg PO BID 03/01/21 [History] Past Medical History HEENT History: Reports: Cataract, Impaired Vision, Sinusitis Cardiovascular History: Reports: Other (See Below) Other Cardiovascular History: varicose veins Respiratory History: Reports: None Gastrointestinal History: Reports: Chronic Constipation, GERD Genitourinary History: Reports: Renal Disease Other Genitourinary History: sees kidney specialist for function [employer] History: Reports: Musculoskeletal History: Reports: Arthritis, Back Pain, Chronic, Fracture Other Musculoskeletal History: spinal stenosis. cervical spine instability. left elbow FX Neurological History: Reports: Concussion, Migraines Psychiatric History: Reports: Anxiety, Depression, Panic Attack Other Psychiatric History: insomnia Endocrine/Metabolic History: Reports: Osteopenia, Other (See Below) Other Endocrine/Metabolic History: inherited spirocytosis Hematologic History: Reports: B12 Deficiency, Folic Acid, Other (See Below) Other Hematologic History: spiral cyctosis - hereditary Immunologic History: Reports: None Oncologic (Cancer) History: Reports: None Dermatologic History: Reports: None - Infectious Disease History Infectious Disease History: Reports: Measles - Past Surgical History Head Surgeries/Procedures: Reports: None HEENT Surgical History: Reports: Cataract Surgery, Oral Surgery, Other (See Below) Other HEENT Surgeries/Procedures: implanted teeth Cardiovascular Surgical History: Reports: None Respiratory Surgical History: Reports: None GI Surgical History: Reports: Appendectomy, Bariatric Procedure, Cholecystectomy, Colonoscopy, Hernia Repair/Other, Other (See Below) Other GI Surgeries/Procedures: spleenectomy Female Surgical History: Reports: None Endocrine Surgical History: Reports: None Neurological Surgical History: Reports: Other (See Below) Other Neurological Surgeries/Procedures: neck fx with surgery Musculoskeletal Surgical History: Reports: Knee Replacement, Other (See Below) Other Musculoskeletal Surgeries/Procedures:: neck surgery from fallJanuary, Oncologic Surgical History: Reports: None Dermatological Surgical History: Reports: None Social & Family History - Family History Family Medical History: No Pertinent Family History - Tobacco Use Tobacco Use Status *Q: Never Tobacco User Second Hand Smoke Exposure: No - Caffeine Use Caffeine Use: Reports: Coffee, Soda Caffeine Use Comment: 2 cups coffee/day - Recreational Drug Use Recreational Drug Use: No - Living Situation & Occupation Living situation: Reports: Occupation: Retired H&P Review of Systems - Review of Systems: Review Of Systems: See Below General: Reports: Weakness HEENT: Reports: No Symptoms Pulmonary: Reports: No Symptoms Cardiovascular: Reports: Lightheadedness (When standing) Gastrointestinal: Reports: No Symptoms Genitourinary: Reports: No Symptoms Musculoskeletal: Reports: Back Pain Skin: Reports: No Symptoms Psychiatric: Reports: Anxiety Neurological: Reports: No Symptoms Hematologic/Lymphatic: Reports: No Symptoms Immunologic: Reports: No Symptoms Exam - Exam Exam: See Below - Vital Signs Vital Signs: Last Vital Signs Temp 97 F 03/01/21 13:46 Pulse 71 03/01/21 13:46 Resp 18 03/01/21 13:46 BP 151/70 H 03/01/21 13:46 Pulse Ox 97 03/01/21 13:46 Weight: 128 lb 8 oz - Exam General: Alert, Cooperative, Mild Distress HEENT: Conjunctiva Clear, EOMI, Hearing Intact, Mucosa Moist & [place] Neck: Supple Lungs: Clear to Auscultation, Normal Respiratory Effort Cardiovascular: Regular Rate GI/Abdominal Exam: Normal Bowel Sounds, Soft, Non-Tender, No Organomegaly, No Distention Back Exam: Vertebral Tenderness Extremities: Normal Inspection, Non-Tender, No Pedal Edema Skin: Warm, Dry, Intact Neuro Extensive - Mental Status: Alert, Normal Mood/Affect, Normal Cognition Psychiatric: Alert, Normal Affect, Normal Mood - Patient Data Lab Results Last 24 hrs: Laboratory Results - last 24 hr 02/28/21 02/28/21 02/28/21 Range/Units 17:16 18:50 18:53 WBC 19.2 H (4.5-11.0) K/uL RBC 4.20 (3.30-5.50) M/uL Hgb 13.8 (12.0-15.0) g/dL Hct 39.4 (36.0-48.0) % MCV 94 (80-98) fL MCH 33 H (27-31) pg MCHC 35 (32-36) % Plt Count 630 H (150-400) K/uL Sodium (140-148) mmol/L Potassium (3.6-5.2) mmol/L Chloride (100-108) mmol/L Carbon Dioxide (21-32) mmol/L Anion Gap (5.0-14.0) mmol/L BUN (7-18) mg/dL Creatinine (0.6-1.0) mg/dL Est Cr Clr Drug Dosing mL/min Estimated GFR (MDRD) (>60) Glucose (74-106) mg/dL Lactic Acid (0.4-2.0) mmol/L Calcium (8.5-10.1) mg/dL Magnesium 2.2 (1.8-2.4) mg/dL Troponin I (0.000-0.056) ng/mL C-Reactive Protein (0.0-0.3) mg/dL NT-Pro-B Natriuret Pep (5-450) pg/mL Urine Color (YELLOW) Urine Appearance (CLEAR) Urine pH (5.0-8.0) Ur Specific [place] (1.008-1.030) Urine Protein (NEGATIVE) mg/dL Urine Glucose (UA) (NEGATIVE) mg/dL Urine Ketones (NEGATIVE) mg/dL Urine Occult Blood (NEGATIVE) Urine Nitrite (NEGATIVE) Urine Bilirubin (NEGATIVE) Urine Urobilinogen (0.2-1.0) EU/dL Ur Leukocyte Esterase (NEGATIVE) Urine RBC (0-5) Urine WBC (0-5) Ur Epithelial Cells Amorphous Sediment Urine Bacteria Urine Mucus Urine Other SARS-CoV-2 RNA (FLO) Negative (NEGATIVE) 02/28/21 02/28/21 02/28/21 Range/Units 18:53 18:53 19:14 WBC (4.5-11.0) K/uL RBC (3.30-5.50) M/uL Hgb (12.0-15.0) g/dL Hct (36.0-48.0) % MCV (80-98) fL MCH (27-31) pg MCHC (32-36) % Plt Count (150-400) K/uL Sodium 142 (140-148) mmol/L Potassium 3.1 L (3.6-5.2) mmol/L Chloride 109 H (100-108) mmol/L Carbon Dioxide 14 L (21-32) mmol/L Anion Gap 22.1 H (5.0-14.0) mmol/L BUN 37 H (7-18) mg/dL Creatinine 1.5 H (0.6-1.0) mg/dL Est Cr Clr Drug Dosing 27.12 mL/min Estimated GFR (MDRD) 34 L (>60) Glucose 101 (74-106) mg/dL Lactic Acid (0.4-2.0) mmol/L Calcium 9.0 (8.5-10.1) mg/dL Magnesium (1.8-2.4) mg/dL Troponin I < 0.017 (0.000-0.056) ng/mL C-Reactive Protein 0.76 H (0.0-0.3) mg/dL NT-Pro-B Natriuret Pep 1162 H (5-450) pg/mL Urine Color (YELLOW) Urine Appearance (CLEAR) Urine pH (5.0-8.0) Ur Specific [place] (1.008-1.030) Urine Protein (NEGATIVE) mg/dL Urine Glucose (UA) (NEGATIVE) mg/dL Urine Ketones (NEGATIVE) mg/dL Urine Occult Blood (NEGATIVE) Urine Nitrite (NEGATIVE) Urine Bilirubin (NEGATIVE) Urine Urobilinogen (0.2-1.0) EU/dL Ur Leukocyte Esterase (NEGATIVE) Urine RBC (0-5) Urine WBC (0-5) Ur Epithelial Cells Amorphous Sediment Urine Bacteria Urine Mucus Urine Other SARS-CoV-2 RNA (FLO) (NEGATIVE) 02/28/21 02/28/21 03/01/21 Range/Units 19:35 19:49 05:30 WBC (4.5-11.0) K/uL RBC (3.30-5.50) M/uL Hgb (12.0-15.0) g/dL Hct (36.0-48.0) % MCV (80-98) fL MCH (27-31) pg MCHC (32-36) % Plt Count (150-400) K/uL Sodium 145 (140-148) mmol/L Potassium 3.3 L (3.6-5.2) mmol/L Chloride 114 H (100-108) mmol/L Carbon Dioxide 12 L (21-32) mmol/L Anion Gap 22.3 H (5.0-14.0) mmol/L BUN 30 H (7-18) mg/dL Creatinine 1.4 H (0.6-1.0) mg/dL Est Cr Clr Drug Dosing 29.06 mL/min Estimated GFR (MDRD) 36 L (>60) Glucose 74 (74-106) mg/dL Lactic Acid 1.1 (0.4-2.0) mmol/L Calcium 8.3 L (8.5-10.1) mg/dL Magnesium (1.8-2.4) mg/dL Troponin I (0.000-0.056) ng/mL C-Reactive Protein (0.0-0.3) mg/dL NT-Pro-B Natriuret Pep (5-450) pg/mL Urine Color Yellow (YELLOW) Urine Appearance Clear (CLEAR) Urine pH 6.0 (5.0-8.0) Ur Specific [place] 1.025 (1.008-1.030) Urine Protein 100 H (NEGATIVE) mg/dL Urine Glucose (UA) Negative (NEGATIVE) mg/dL Urine Ketones Trace H (NEGATIVE) mg/dL Urine Occult Blood Trace-lysed H (NEGATIVE) Urine Nitrite Negative (NEGATIVE) Urine Bilirubin Small H (NEGATIVE) Urine Urobilinogen 0.2 (0.2-1.0) EU/dL Ur Leukocyte Esterase Small H (NEGATIVE) Urine RBC 0-5 (0-5) Urine WBC >100 H (0-5) Ur Epithelial Cells Moderate Amorphous Sediment Not seen Urine Bacteria Not seen Urine Mucus Not seen Urine Other See note SARS-CoV-2 RNA (FLO) (NEGATIVE) Result Diagrams: 02/28/21 18:53 03/01/21 05:30 Sepsis Event Note - Evaluation Sepsis Screening Result: No Definite Risk - Focused Exam Vital Signs: Vital Signs Temp Temp Pulse Resp BP Pulse Ox 03/01/21 13:46 97 F 71 18 151/70 H 97 03/01/21 09:05 79 18 149/83 H 97 03/01/21 08:01 79 16 156/78 H 98 03/01/21 07:00 75 23 H 138/78 98 03/01/21 06:18 97.0 F 71 18 140/75 98 - Problem List (1) Elevated WBC count SNOMED Code(s): 115207660, 837992290 ICD Code: D72.829 - ELEVATED WHITE BLOOD CELL COUNT, UNSPECIFIED Status: Acute Priority: Low Current Visit: Yes Qualifiers: Leukocytosis type: bandemia Qualified Code(s): D72.825 - Bandemia (2) Hypokalemia SNOMED Code(s): 17954906 ICD Code: E87.6 - HYPOKALEMIA Status: Acute Current Visit: Yes (3) Weakness SNOMED Code(s): 44558122 ICD Code: R53.1 - WEAKNESS Status: Acute Current Visit: Yes (4) Anxiety SNOMED Code(s): 55243778 ICD Code: F41.9 - ANXIETY DISORDER, UNSPECIFIED Status: Chronic Current Visit: No (5) Recurrent falls while walking SNOMED Code(s): 856580050, 269919117 ICD Code: R29.6 - REPEATED FALLS Status: Chronic Priority: High Current Visit: No Problem List Initiated/Reviewed/Updated: Yes Orders Last 24hrs: Active Orders 24 hr Category Date Time Status Admission Status [Patient Status] [ADT] Routine ADT 03/01/21 12:47 Active Dietary Supplements [RC] BIDMEALS Care 03/01/21 13:46 Active Oxygen Therapy [RC] PRN Care 03/01/21 14:00 Active Up With Assistance [RC] ASDIRECTED Care 03/01/21 14:06 Active Vital Signs [RC] Q4H Care 03/01/21 14:00 Active Consult to Occupational Therapy [OT Evaluation and Cons 03/01/21 14:04 Active Treatment] [CONS] Routine PT Evaluation and Treatment [CONS] Routine Cons 03/01/21 14:04 Active Regular Diet [DIET] Diet 03/01/21 Breakfast Active Abdomen 1V Flat [CR] Stat Exams 02/28/21 19:55 Taken Chest 2V [CR] Stat Exams 02/28/21 19:48 Taken CULTURE BLOOD [BC] Stat Lab 02/28/21 21:00 Received CULTURE BLOOD [BC] Stat Lab 02/28/21 21:05 Received CULTURE URINE [RM] Stat Lab 02/28/21 19:00 Received URINALYSIS W/MICROSCOPIC [UA W/MICROSCOPIC] [URIN] Lab 03/01/21 14:11 Ordered Routine Acetaminophen [TylenoL] Med 03/01/21 14:14 Active 650 mg PO Q4H PRN Acetaminophen/HYDROcodone [[place] 325-5 MG] Med 03/01/21 14:15 Active 1 tab PO Q4H PRN Aspirin Med 03/02/21 09:00 Ordered 81 mg PO DAILY LORazepam [Ativan] Med 03/01/21 13:46 Active 0.25 mg PO BID PRN Morphine Med 03/01/21 14:17 Active 2 mg IVPUSH Q4H PRN Ramelteon [Rozerem] Med 03/01/21 21:00 Active 8 mg PO BEDTIME Venlafaxine [Effexor] Med 03/01/21 21:00 Active 93.75 mg PO BID Medication Orders Acetaminophen (Acetaminophen 325 Mg Tab) 650 mg PO Q4H PRN PRN Reason: Pain (mild 1-3) Hydrocodone Bitart/Acetaminophen (Acetaminophen/Hydrocodone 325-5 Mg Tab) 1 tab PO Q4H PRN PRN Reason: Pain (moderate 4-6) Last Admin: 03/01/21 14:53 Dose: 1 tab Documented by: MEGAN Aspirin (Aspirin 81 Mg Tab.Chew) 81 mg PO DAILY [place] Lorazepam (Lorazepam 0.5 Mg Tab) 0.25 mg PO BID PRN PRN Reason: Anxiety Morphine Sulfate (Morphine 2 Mg/Ml Syringe) 2 mg IVPUSH Q4H PRN PRN Reason: Pain (severe 7-10) Ramelteon (Ramelteon 8 Mg Tab) 8 mg PO BEDTIME [place] Venlafaxine HCl (Venlafaxine 75 Mg Tab) 93.75 mg PO BID [facility] Assessment/Plan Comment:: Weakness and deconditioning -This is likely secondary to her being in bed or in a chair without any mobility for the past week -She will likely need rehabilitation through a facility for this as her is unable to care for her in that manner Leukocytosis with concern for possible UTI -The patient is not currently having urinary tract infection symptoms including urgency, frequency, burning, or changes in urine -The UA in the emergency department was contaminated showing epithelial cells, she was given a dose of Rocephin -Will get UA via straight cath however it may be negative due to the Rocephin that was given therefore I will monitor for any signs or symptoms of urinary tract infection and monitor her labs as well. If a UTI present so will be treated. Recurrent falls -She is on a benzodiazepine which could increase her risk of falling -The way she describes the fall sounds orthostatic, after standing up a few seconds later she will start to feel dizzy and then fall -I will speak with her about her medications and options to stop those medications Vertebral compression fractures secondary to fall -Tylenol for mild pain, [place] 5 for moderate pain, morphine 2 mg for severe pain -Will need to make sure that if she is given [place] or morphine that she does not leave her bed as she will be at extremely high risk for fall Generalized anxiety -Continue home dose of venlafaxine -Continue home dose of lorazepam for now however will need to have a conversation with this patient about how this medication can significantly increase for risk of falls in the future -We will continue ramelteon for sleep I do have concern for failure to thrive in this patient. Since her last big fall with the vertebral fractures she has not been able to get out of bed. Her is able to pick her up and move her to a chair during the day but she is not able to do this herself. I have concerns for what she is actually able to do on her own as far as her ADLs. It is unknown if she is lost weight during this time, she is currently at a BMI of 22 which is within normal range. VTE prophylaxis: Baby aspirin, will not be giving enoxaparin even though she is at high risk due to her repeated episodes of falling GI prophylaxis: Not indicated Diet: Regular diet Disposition: I think this patient will need inpatient rehab after this hospitalization. She is here on observation however she may not be able to go to a rehabilitation facility until Wednesday. Plan: We will make sure that her pain is controlled. We will try to prevent any falls by keeping her in bed if she does not have assistance. She will only be up with assist. I will have PT and OT evaluate her. Bianca Steele, DO - Mortality Measure Prognosis:: Good
[2021-03-01] MEDS ORDERED: cefTRIAXone 1 GM in Sodium Chloride 0.9% 50 ML IV SCH (20:00)
[2021-03-01] MEDS: Venlafaxine 75 MG Tab PO SCH (21:28)
[2021-03-02] MEDS: Acetaminophen/HYDROcodone 325-5 MG Tab PO PRN ×4 (08:01→20:02)
[2021-03-02] MEDS: Venlafaxine 75 MG Tab PO SCH ×2 (08:15→20:04)
[2021-03-02] MEDS: Aspirin 81 MG Tab.Chew PO SCH (08:16)
[2021-03-02] MEDS ORDERED: Enoxaparin 40 MG/0.4 ML Syringe SUBCUT SCH (09:00)
[2021-03-02] MEDS ORDERED: Sodium Chloride 0.45% with KCl 1,000 ML IV SCH (10:15)
--- NOTE | 2021-03-02 20:37 | PCM.PN ---
- General Info Date of Service: 03/02/21 Admission Dx/Problem (Free Text): Admission Diagnosis/Problem Admission Diagnosis/Problem Weakness Subjective Update: Mrs. Herrera is doing well today her pain is controlled. She is having no complaints. We did discuss her need for either a walker or a wheelchair at home. We also discussed that she will need to be going to a rehabilitation facility until she can walk. Her was at bedside and agreed. He states that he is not able to take care of her at home. - Review of Systems General: Reports: No Symptoms HEENT: Reports: No Symptoms Pulmonary: Reports: No Symptoms Cardiovascular: Reports: No Symptoms Gastrointestinal: Reports: No Symptoms Genitourinary: Reports: No Symptoms Musculoskeletal: Reports: No Symptoms Skin: Reports: No Symptoms Neurological: Reports: No Symptoms Psychiatric: Reports: No Symptoms - Patient Data Vitals - Most Recent: Last Vital Signs Temp 96.8 F L 03/02/21 19:40 Pulse 73 03/02/21 19:40 Resp 16 03/02/21 19:40 BP 141/69 H 03/02/21 19:40 Pulse Ox 97 03/02/21 19:40 Weight - Most Recent: 128 lb 8 oz I&O - Last 24 Hours: Intake & Output 03/02/21 03/02/21 03/02/21 06:59 14:59 22:59 Intake Total 60 490 200 Balance 60 490 200 Lab Results Last 24 Hours: Laboratory Results - last 24 hr 03/02/21 03/02/21 Range/Units 04:20 04:20 WBC 12.8 H (4.5-11.0) K/uL RBC 3.60 (3.30-5.50) M/uL Hgb 11.7 L D (12.0-15.0) g/dL Hct 34.0 L (36.0-48.0) % MCV 94 (80-98) fL MCH 33 H (27-31) pg MCHC 34 (32-36) % Plt Count 652 H (150-400) K/uL Sodium 144 (140-148) mmol/L Potassium 3.2 L (3.6-5.2) mmol/L Chloride 114 H (100-108) mmol/L Carbon Dioxide 13 L (21-32) mmol/L Anion Gap 20.2 H (5.0-14.0) mmol/L BUN 19 H (7-18) mg/dL Creatinine 0.9 (0.6-1.0) mg/dL Est Cr Clr Drug Dosing 45.20 mL/min Estimated GFR (MDRD) > 60 (>60) Glucose 72 L (74-106) mg/dL Calcium 8.4 L (8.5-10.1) mg/dL Tim Results Last 24 Hours: Microbiology 02/28/21 19:00 Urine Culture - Preliminary Urine, Voided MIXED [place] DAY 1 02/28/21 21:05 Aerobic Blood Culture - Preliminary Blood - Arm, Right NO GROWTH AFTER 1 DAY Anaerobic Blood Culture - Preliminary NO GROWTH AFTER 1 DAY 02/28/21 21:00 Aerobic Blood Culture - Preliminary Blood - Arm, Left NO GROWTH AFTER 1 DAY Anaerobic Blood Culture - Preliminary NO GROWTH AFTER 1 DAY Med Orders - Current: Current Medications Acetaminophen (Acetaminophen 325 Mg Tab) 650 mg PO Q4H PRN PRN Reason: Pain (mild 1-3) Hydrocodone Bitart/Acetaminophen (Acetaminophen/Hydrocodone 325-5 Mg Tab) 1 tab PO Q4H PRN PRN Reason: Pain (moderate 4-6) Last Admin: 03/02/21 20:02 Dose: 1 tab Documented by: Aspirin (Aspirin 81 Mg Tab.Chew) 81 mg PO DAILY [facility] Last Admin: 03/02/21 08:16 Dose: 81 mg Documented by: Lorazepam (Lorazepam 0.5 Mg Tab) 0.25 mg PO BID PRN PRN Reason: Anxiety Morphine Sulfate (Morphine 2 Mg/Ml Syringe) 2 mg IVPUSH Q4H PRN PRN Reason: Pain (severe 7-10) Polyethylene Glycol (Polyethylene Glycol 3350 Powder 17 Gm Packet) 17 gm PO BEDTIME PRN PRN Reason: Constipation Ramelteon (Ramelteon 8 Mg Tab) 8 mg PO BEDTIME [facility] Last Admin: 03/02/21 20:04 Dose: 8 mg Documented by: Trimethoprim/Sulfamethoxazole (Sulfamethoxazole/Trimethoprim 800-160 Mg Tab) 1 tab PO BID [place] Stop: 03/05/21 21:01 Venlafaxine HCl (Venlafaxine 75 Mg Tab) 93.75 mg PO BID [facility] Last Admin: 03/02/21 20:04 Dose: 93.75 mg Documented by: Discontinued Medications Acetaminophen (Acetaminophen 500 Mg Tab) 1,000 mg PO ONETIME ONE Stop: 02/28/21 20:32 Last Admin: 02/28/21 20:35 Dose: 1,000 mg Documented by: Dexamethasone (Dexamethasone 4 Mg/Ml Sdv) 4 mg IVPUSH Q24H [facility] Last Admin: 03/01/21 14:53 Dose: Not Given Documented by: Dexamethasone (Dexamethasone 4 Mg/Ml Sdv) 6 mg IVPUSH Q24H [place] Stop: 03/11/21 14:16 Enoxaparin Sodium (Enoxaparin 40 Mg/0.4 Ml Syringe) 40 mg SUBCUT DAILY [facility] Hydromorphone HCl (Hydromorphone 1 Mg/Ml Syringe) 1 mg IVPUSH ONETIME ONE Stop: 02/28/21 22:43 Last Admin: 02/28/21 23:03 Dose: 1 mg Documented by: Potassium Chloride/Sodium Chloride (Normal Saline With 20 Meq Kcl) 1,000 mls @ 1,000 mls/hr IV ASDIRECTED [facility] Last Admin: 02/28/21 20:27 Dose: 1,000 mls/hr Documented by: Ceftriaxone Sodium 1 gm/ (Sodium Chloride) 50 mls @ 100 mls/hr IV ONETIME ONE Stop: 02/28/21 21:02 Last Admin: 02/28/21 20:45 Dose: 100 mls/hr Documented by: Lactated Ringer's (Ringers, Lactated) 1,000 mls @ 100 mls/hr IV ASDIRECTED [facility] Sodium Chloride (Normal Saline) 1,000 mls @ 100 mls/hr IV ASDIRECTED [facility] Last Admin: 02/28/21 23:02 Dose: 100 mls/hr Documented by: Ceftriaxone Sodium 1 gm/ (Sodium Chloride) 50 mls @ 100 mls/hr IV Q24H [facility] Potassium Chloride/Sodium Chloride (1/2 Ns With 20 Meq Kcl) 1,000 mls @ 75 mls/hr IV ASDIRECTED [facility] Last Admin: 03/02/21 17:09 Dose: 75 mls/hr Documented by: Influenza Virus Vaccine (Flu Vacc [id number](65yr Up)/Pf 240 Mcg/0.7 Ml Syringe) 240 mcg IM .ONCE ONE Stop: 03/02/21 09:01 Last Admin: 03/02/21 10:52 Dose: Not Given Documented by: Ketorolac Tromethamine (Ketorolac 30 Mg/Ml Sdv) 15 mg IVPUSH ONETIME ONE Stop: 02/28/21 20:32 Last Admin: 02/28/21 20:36 Dose: 15 mg Documented by: Potassium Chloride (Potassium Chloride 20 Meq Tab.Er) 20 meq PO ONETIME ONE Stop: 02/28/21 20:33 Last Admin: 02/28/21 20:35 Dose: 20 meq Documented by: Potassium Chloride (Potassium Chloride 20 Meq Tab.Er) 20 meq PO ONETIME ONE Stop: 02/28/21 21:37 Last Admin: 02/28/21 22:02 Dose: 20 meq Documented by: Potassium Chloride (Potassium Chloride 20 Meq Tab.Er) 20 meq PO ONETIME ONE Stop: 03/01/21 06:30 Last Admin: 03/01/21 07:37 Dose: 20 meq Documented by: - Exam General: Alert, Oriented HEENT: Pupils Equal, EOMI, Mucous Membr. Moist/Foss Neck: Supple Lungs: Clear to Auscultation, Normal Respiratory Effort Cardiovascular: Regular Rate, Regular Rhythm GI/Abdominal Exam: Normal Bowel Sounds, Soft, Non-Tender, No Organomegaly, No Distention, No Abnormal Bruit, No Mass, Pelvis Stable Back Exam: Normal Inspection, Other (Kyphosis) Extremities: Normal Inspection, Non-Tender, No Pedal Edema Skin: Warm, Dry, Intact, Other (Healing bruises to the chest and back from her fall) Wound/Incisions: Healing Well Neurological: No New Focal Deficit Psy/Mental Status: Alert, Normal Affect, Normal Mood - Patient Data Lab Results Last 24 hrs: Laboratory Results - last 24 hr 03/02/21 03/02/21 Range/Units 04:20 04:20 WBC 12.8 H (4.5-11.0) K/uL RBC 3.60 (3.30-5.50) M/uL Hgb 11.7 L D (12.0-15.0) g/dL Hct 34.0 L (36.0-48.0) % MCV 94 (80-98) fL MCH 33 H (27-31) pg MCHC 34 (32-36) % Plt Count 652 H (150-400) K/uL Sodium 144 (140-148) mmol/L Potassium 3.2 L (3.6-5.2) mmol/L Chloride 114 H (100-108) mmol/L Carbon Dioxide 13 L (21-32) mmol/L Anion Gap 20.2 H (5.0-14.0) mmol/L BUN 19 H (7-18) mg/dL Creatinine 0.9 (0.6-1.0) mg/dL Est Cr Clr Drug Dosing 45.20 mL/min Estimated GFR (MDRD) > 60 (>60) Glucose 72 L (74-106) mg/dL Calcium 8.4 L (8.5-10.1) mg/dL Result Diagrams: 03/02/21 04:20 03/02/21 04:20 Tim Results Last 24 hrs: Microbiology 02/28/21 19:00 Urine Culture - Preliminary Urine, Voided MIXED [place] DAY 1 02/28/21 21:05 Aerobic Blood Culture - Preliminary Blood - Arm, Right NO GROWTH AFTER 1 DAY Anaerobic Blood Culture - Preliminary NO GROWTH AFTER 1 DAY 02/28/21 21:00 Aerobic Blood Culture - Preliminary Blood - Arm, Left NO GROWTH AFTER 1 DAY Anaerobic Blood Culture - Preliminary NO GROWTH AFTER 1 DAY Sepsis Event Note - Evaluation Sepsis Screening Result: No Definite Risk - Focused Exam Vital Signs: Vital Signs Temp Pulse Resp BP Pulse Ox 03/02/21 19:40 96.8 F L 73 16 141/69 H 97 03/02/21 14:37 95.7 F L 68 18 131/69 97 03/02/21 10:28 95.4 F L 81 18 124/76 97 - Problem List & Annotations (1) Hypokalemia SNOMED Code(s): 44858447 Code(s): E87.6 - HYPOKALEMIA Status: Acute Current Visit: Yes (2) Weakness SNOMED Code(s): 55093869 Code(s): R53.1 - WEAKNESS Status: Acute Current Visit: Yes (3) Anxiety SNOMED Code(s): 06205304 Code(s): F41.9 - ANXIETY DISORDER, UNSPECIFIED Status: Chronic Current Visit: No (4) Recurrent falls while walking SNOMED Code(s): 681209518, 628442991 Code(s): R29.6 - REPEATED FALLS Status: Chronic Priority: High Current Visit: No - Problem List Review Problem List Initiated/Reviewed/Updated: Yes - My Orders Last 24 Hours: My Active Orders 03/01/21 19:47 Vaccine to be Administered/Admin Charge [RC] 1000 10/16/21 21:00 Ramelteon [Rozerem] 8 mg PO BEDTIME Venlafaxine [Effexor] 93.75 mg PO BID 03/02/21 09:00 Aspirin 81 mg PO DAILY 03/02/21 21:00 Sulfamethoxazole/Trimethoprim [Septra DS] 1 tab PO BID 03/03/21 Breakfast Soft Diet [DIET] - Plan Plan:: Weakness and deconditioning -This is likely secondary to her being in bed or in a chair without any mobility for the past week -She and her are in agreement that she will need a rehab facility and they're okay with that Leukocytosis with concern for possible UTI -Bactrim DS 1 tablet twice daily for 3 days Recurrent falls -The way she describes the fall sounds orthostatic, after standing up a few seconds later she will start to feel dizzy and then fall -Will need rehabilitation and likely a walker or wheelchair for mobility Vertebral compression fractures secondary to fall -Tylenol for mild pain, [place] 5 for moderate pain, morphine 2 mg for severe pain -Will need to make sure that if she is given [place] or morphine that she does not leave her bed as she will be at extremely high risk for fall Generalized anxiety -Continue home dose of venlafaxine -Continue home dose of lorazepam for now however will need to have a conversation with this patient about how this medication can significantly increase for risk of falls in the future -We will continue ramelteon for sleep VTE prophylaxis: Baby aspirin, will not be giving enoxaparin even though she is at high risk due to her repeated episodes of falling GI prophylaxis: Not indicated Diet: Regular diet Disposition: I think this patient will need inpatient rehab after this hospitalization. She is here on observation however she may not be able to go to a rehabilitation facility until Wednesday. Plan: I did add Bactrim to cover for possible UTI. We will make sure that her pain is controlled. We will try to prevent any falls by keeping her in bed if she does not have assistance. She will only be up with assist. I will have PT and OT evaluate her. Bianca Steele, DO
[2021-03-02] MEDS ORDERED: Sulfamethoxazole/Trimethoprim 800-160 MG Tab PO SCH (21:00)
[2021-03-02] MEDS: Amoxicillin/Clavulanate K 500-125 MG Tab PO SCH (22:26)
[2021-03-03] MEDS: Acetaminophen/HYDROcodone 325-5 MG Tab PO PRN (07:39)
[2021-03-03] MEDS ORDERED: Potassium Chloride 20 MEQ Tab.ER PO ONE (09:00)
[2021-03-03] MEDS: Aspirin 81 MG Tab.Chew PO SCH (09:22)
[2021-03-03] MEDS: Venlafaxine 75 MG Tab PO SCH ×2 (09:22→20:45)
[2021-03-03] MEDS: Amoxicillin/Clavulanate K 500-125 MG Tab PO SCH (09:22)
--- NOTE | 2021-03-03 09:34 | CR ---
CHEST: 2 view CLINICAL HISTORY:Elevated white count, confusion COMPARISON:2019 FINDINGS: The heart size, pulmonary vascularity and hilar structures are normal. No infiltrate effusion or pneumothorax is seen. There are atherosclerotic changes in the aorta. Patient is moderately kyphotic. There is a [id number] compression deformity of the lower thoracic vertebrae. This has increased since 2019. IMPRESSION: No acute cardiopulmonary process. Increasing compression deformity of the lower thoracic vertebrae
--- NOTE | 2021-03-03 09:35 | CR ---
Abdomen 1V Flat CLINICAL HISTORY: Pain FINDINGS: Small intestinal configuration is nonacute. There is gas and feces throughout the colon. Patient has had previous abdominal surgeries. IMPRESSION: Nonacute intestinal gas pattern
[2021-03-03] MEDS ORDERED: Cyanocobalamin (Vitamin B12) 1,000 MCG/ML SDV IM ONE (10:00)
--- NOTE | 2021-03-03 10:35 | PCM.PN ---
- General Info Date of Service: 03/03/21 Subjective Update: No acute events overnight. Patient reports moderate pain in the back. She is unable to localize this and states most of her back hurts some. Pain medications do help but she has been using them infrequently. She required standby assist to use the walker today. More comfortable laying in bed and more uncomfortable when she is moving around. Family does not feel that they are able to provide adequate care for her and think she would be better off going to subacute rehab before coming home. Functional Status: Reports: Pain Controlled, Tolerating Diet - Review of Systems General: Reports: Weakness Musculoskeletal: Reports: Back Pain - Patient Data Vitals - Most Recent: Last Vital Signs Temp 36.3 C 03/03/21 07:46 Pulse 88 03/03/21 07:46 Resp 15 03/03/21 07:46 BP 99/73 03/03/21 07:46 Pulse Ox 95 03/03/21 07:46 Weight - Most Recent: 58.287 kg I&O - Last 24 Hours: Intake & Output 03/02/21 03/03/21 03/03/21 22:59 06:59 14:59 Intake Total 200 936 Balance 200 936 Lab Results Last 24 Hours: Laboratory Results - last 24 hr 03/03/21 03/03/21 Range/Units 04:25 04:25 WBC 15.9 H (4.5-11.0) K/uL RBC 3.70 (3.30-5.50) M/uL Hgb 11.8 L (12.0-15.0) g/dL Hct 34.8 L (36.0-48.0) % MCV 94 (80-98) fL MCH 32 H (27-31) pg MCHC 34 (32-36) % Plt Count 634 H (150-400) K/uL Sodium 142 (140-148) mmol/L Potassium 3.4 L (3.6-5.2) mmol/L Chloride 112 H (100-108) mmol/L Carbon Dioxide 15 L (21-32) mmol/L Anion Gap 18.4 H (5.0-14.0) mmol/L BUN 15 (7-18) mg/dL Creatinine 0.9 (0.6-1.0) mg/dL Est Cr Clr Drug Dosing 45.20 mL/min Estimated GFR (MDRD) > 60 (>60) Glucose 73 L (74-106) mg/dL Calcium 8.2 L (8.5-10.1) mg/dL Tim Results Last 24 Hours: Microbiology 02/28/21 19:00 Urine Culture - Final Urine, Voided MIXED [place] DAY 2 02/28/21 21:05 Aerobic Blood Culture - Preliminary Blood - Arm, Right NO GROWTH AFTER 2 DAYS Anaerobic Blood Culture - Preliminary NO GROWTH AFTER 2 DAYS 02/28/21 21:00 Aerobic Blood Culture - Preliminary Blood - Arm, Left NO GROWTH AFTER 2 DAYS Anaerobic Blood Culture - Preliminary NO GROWTH AFTER 2 DAYS Med Orders - Current: Current Medications Acetaminophen (Acetaminophen 500 Mg Tab) 1,000 mg PO TID [facility] Aspirin (Aspirin 81 Mg Tab.Chew) 81 mg PO DAILY [facility] Last Admin: 03/03/21 09:22 Dose: 81 mg Documented by: Lorazepam (Lorazepam 0.5 Mg Tab) 0.25 mg PO BID PRN PRN Reason: Anxiety Morphine Sulfate (Morphine 2 Mg/Ml Syringe) 2 mg IVPUSH Q4H PRN PRN Reason: Pain (severe 7-10) Polyethylene Glycol (Polyethylene Glycol 3350 Powder 17 Gm Packet) 17 gm PO BEDTIME PRN PRN Reason: Constipation Ramelteon (Ramelteon 8 Mg Tab) 8 mg PO BEDTIME [facility] Last Admin: 03/02/21 20:04 Dose: 8 mg Documented by: Tramadol HCl (Tramadol 50 Mg Tab) 50 mg PO Q6H PRN PRN Reason: Pain Venlafaxine HCl (Venlafaxine 75 Mg Tab) 93.75 mg PO BID [facility] Last Admin: 03/03/21 09:22 Dose: 93.75 mg Documented by: Discontinued Medications Acetaminophen (Acetaminophen 500 Mg Tab) 1,000 mg PO ONETIME ONE Stop: 02/28/21 20:32 Last Admin: 02/28/21 20:35 Dose: 1,000 mg Documented by: Acetaminophen (Acetaminophen 325 Mg Tab) 650 mg PO Q4H PRN PRN Reason: Pain (mild 1-3) Hydrocodone Bitart/Acetaminophen (Acetaminophen/Hydrocodone 325-5 Mg Tab) 1 tab PO Q4H PRN PRN Reason: Pain (moderate 4-6) Last Admin: 03/03/21 07:39 Dose: 1 tab Documented by: Amoxicillin/Clavulanate Potassium (Amoxicillin/Clavulanate K 500-125 Mg Tab) 1 tab PO BID [facility] Last Admin: 03/03/21 09:22 Dose: 1 tab Documented by: Cyanocobalamin (Cyanocobalamin (Vitamin B12) 1,000 Mcg/Ml Sdv) 1,000 mcg IM ONETIME ONE Stop: 03/03/21 10:01 Dexamethasone (Dexamethasone 4 Mg/Ml Sdv) 4 mg IVPUSH Q24H [facility] Last Admin: 03/01/21 14:53 Dose: Not Given Documented by: Dexamethasone (Dexamethasone 4 Mg/Ml Sdv) 6 mg IVPUSH Q24H [facility] Stop: 03/11/21 14:16 Enoxaparin Sodium (Enoxaparin 40 Mg/0.4 Ml Syringe) 40 mg SUBCUT DAILY [facility] Hydromorphone HCl (Hydromorphone 1 Mg/Ml Syringe) 1 mg IVPUSH ONETIME ONE Stop: 02/28/21 22:43 Last Admin: 02/28/21 23:03 Dose: 1 mg Documented by: Potassium Chloride/Sodium Chloride (Normal Saline With 20 Meq Kcl) 1,000 mls @ 1,000 mls/hr IV ASDIRECTED [facility] Last Admin: 02/28/21 20:27 Dose: 1,000 mls/hr Documented by: Ceftriaxone Sodium 1 gm/ (Sodium Chloride) 50 mls @ 100 mls/hr IV ONETIME ONE Stop: 02/28/21 21:02 Last Admin: 02/28/21 20:45 Dose: 100 mls/hr Documented by: Lactated Ringer's (Ringers, Lactated) 1,000 mls @ 100 mls/hr IV ASDIRECTED [facility] Sodium Chloride (Normal Saline) 1,000 mls @ 100 mls/hr IV ASDIRECTED [facility] Last Admin: 02/28/21 23:02 Dose: 100 mls/hr Documented by: Ceftriaxone Sodium 1 gm/ (Sodium Chloride) 50 mls @ 100 mls/hr IV Q24H [facility] Potassium Chloride/Sodium Chloride (1/2 Ns With 20 Meq Kcl) 1,000 mls @ 75 mls/hr IV ASDIRECTED [facility] Last Admin: 03/02/21 17:09 Dose: 75 mls/hr Documented by: Influenza Virus Vaccine (Flu Vacc [id number](65yr Up)/Pf 240 Mcg/0.7 Ml Syringe) 240 mcg IM .ONCE ONE Stop: 03/02/21 09:01 Last Admin: 03/02/21 10:52 Dose: Not Given Documented by: Ketorolac Tromethamine (Ketorolac 30 Mg/Ml Sdv) 15 mg IVPUSH ONETIME ONE Stop: 02/28/21 20:32 Last Admin: 02/28/21 20:36 Dose: 15 mg Documented by: Potassium Chloride (Potassium Chloride 20 Meq Tab.Er) 20 meq PO ONETIME ONE Stop: 02/28/21 20:33 Last Admin: 02/28/21 20:35 Dose: 20 meq Documented by: Potassium Chloride (Potassium Chloride 20 Meq Tab.Er) 20 meq PO ONETIME ONE Stop: 02/28/21 21:37 Last Admin: 02/28/21 22:02 Dose: 20 meq Documented by: Potassium Chloride (Potassium Chloride 20 Meq Tab.Er) 20 meq PO ONETIME ONE Stop: 03/01/21 06:30 Last Admin: 03/01/21 07:37 Dose: 20 meq Documented by: Potassium Chloride (Potassium Chloride 20 Meq Tab.Er) 40 meq PO ONETIME ONE Stop: 03/03/21 09:01 Last Admin: 03/03/21 09:22 Dose: 40 meq Documented by: Trimethoprim/Sulfamethoxazole (Sulfamethoxazole/Trimethoprim 800-160 Mg Tab) 1 tab PO BID [place] Stop: 03/05/21 21:01 - Exam Quality Assessment: No: Supplemental Oxygen General: Alert, Oriented, Cooperative, No Acute Distress Lungs: Normal Respiratory Effort. No: Wheezing GI/Abdominal Exam: Soft, No Distention Back Exam: Other (kyphosis ). No: Full Range of Motion, Paraspinal Tenderness, Vertebral Tenderness Extremities: No Pedal Edema Psy/Mental Status: Alert, Normal Affect - Patient Data Lab Results Last 24 hrs: Laboratory Results - last 24 hr 03/03/21 03/03/21 Range/Units 04:25 04:25 WBC 15.9 H (4.5-11.0) K/uL RBC 3.70 (3.30-5.50) M/uL Hgb 11.8 L (12.0-15.0) g/dL Hct 34.8 L (36.0-48.0) % MCV 94 (80-98) fL MCH 32 H (27-31) pg MCHC 34 (32-36) % Plt Count 634 H (150-400) K/uL Sodium 142 (140-148) mmol/L Potassium 3.4 L (3.6-5.2) mmol/L Chloride 112 H (100-108) mmol/L Carbon Dioxide 15 L (21-32) mmol/L Anion Gap 18.4 H (5.0-14.0) mmol/L BUN 15 (7-18) mg/dL Creatinine 0.9 (0.6-1.0) mg/dL Est Cr Clr Drug Dosing 45.20 mL/min Estimated GFR (MDRD) > 60 (>60) Glucose 73 L (74-106) mg/dL Calcium 8.2 L (8.5-10.1) mg/dL Result Diagrams: 03/03/21 04:25 03/03/21 04:25 Tim Results Last 24 hrs: Microbiology 02/28/21 19:00 Urine Culture - Final Urine, Voided MIXED [place] DAY 2 02/28/21 21:05 Aerobic Blood Culture - Preliminary Blood - Arm, Right NO GROWTH AFTER 2 DAYS Anaerobic Blood Culture - Preliminary NO GROWTH AFTER 2 DAYS 02/28/21 21:00 Aerobic Blood Culture - Preliminary Blood - Arm, Left NO GROWTH AFTER 2 DAYS Anaerobic Blood Culture - Preliminary NO GROWTH AFTER 2 DAYS Sepsis Event Note - Evaluation Sepsis Screening Result: No Definite Risk - Focused Exam Vital Signs: Vital Signs Temp Pulse Resp BP Pulse Ox 03/03/21 07:46 36.3 C 88 15 99/73 95 03/03/21 04:58 36.1 C 68 16 143/64 H 96 03/02/21 22:39 36.3 C 80 16 141/72 H 97 - Problem List Review Problem List Initiated/Reviewed/Updated: Yes - My Orders Last 24 Hours: My Active Orders 03/03/21 10:32 traMADol [Ultram] 50 mg PO Q6H PRN 03/03/21 14:00 Acetaminophen [Tylenol Extra Strength] 1,000 mg PO TID 03/04/21 05:00 BASIC METABOLIC PANEL,BMP [CHEM] Timed CBC WITH AUTO DIFF [HEME] Timed TSH ULTRASENSITIVE [CHEM] Timed - Plan Plan:: ASSESSMENT AND PLAN- Leukocytosis with concern for possible UTI-urine culture did not grow out any specific bacteria. Antibiotics have been discontinued. Recurrent falls-working with physical therapy, seems to be doing okay so far. She has had compression fractures because of the falls and we are working on pain control as discussed below. -Head CT to rule out intracranial pathology -Will need rehabilitation and likely a walker or wheelchair for mobility Vertebral compression fractures secondary to fall-moderate pain, infrequent use of as needed medications. -Scheduled acetaminophen -Tramadol for breakthrough pain -Physical therapy Leukocytosis, thrombocytosis, hypokalemia, renal insufficiency and metabolic acidosis-no localizing symptoms. Plan to perform a variety of tests looking for the cause including inflammatory markers, thyroid studies and potentially addit ional work-up for multiple myeloma or other hematologic malignancy based on additional testing obtained. Generalized anxiety-stable. Lorazepam is a medication of concern. -Continue home dose of venlafaxine and ramelteon for sleep Maintenance issues- VTE prophylaxis: Baby aspirin, will not be giving enoxaparin even though she is at high risk due to her repeated episodes of falling GI prophylaxis: Not indicated Diet: Regular diet Disposition: I think this patient will need inpatient rehab after this hospitalization. Family thinks that she needs subacute rehab. So far we have not had any luck locating a subacute rehab facility. Home care would be a possibility but family does not think this is a good option and they are not available for a couple of weeks. She is still observation. Darvin Stevenson MD
[2021-03-03] MEDS: traMADol 50 MG Tab PO PRN ×2 (13:42→19:43)
[2021-03-03] MEDS: Acetaminophen 500 MG Tab PO SCH ×2 (13:43→20:44)
--- NOTE | 2021-03-03 15:12 | CT ---
Head wo Cont CLINICAL HISTORY: Delirium, recent falls COMPARISON: February 2020 TECHNIQUE: Transverse scans were obtained from the base of the skull through the vertex without IV contrast on a multislice, multidetector CT scanner. Auto dosage reduction and iterative reconstruction techniques employed. FINDINGS: There is ethmoid, right maxillary and sphenoid sinusitis. No focal abnormal parenchymal density is identified There is no mass effect, hemorrhage, or extraaxial collection. There is periventricular and subcortical lucency bilaterally The basal cisterns and sulci over the convexities are prominent. The ventricles are prominent. IMPRESSION: No acute intracranial abnormality Moderate age-related atrophy. Moderate chronic ischemic microvascular change Previous sinus surgery with chronic pansinusitis
[2021-03-04] MEDS: Polyethylene Glycol 3350 Powder 17 GM Packet PO PRN (00:51)
[2021-03-04] MEDS: Venlafaxine 75 MG Tab PO SCH ×2 (09:11→20:09)
[2021-03-04] MEDS: traMADol 50 MG Tab PO PRN ×2 (09:11→17:46)
[2021-03-04] MEDS: Aspirin 81 MG Tab.Chew PO SCH (09:11)
[2021-03-04] MEDS: Acetaminophen 500 MG Tab PO SCH ×4 (09:12→20:10)
[2021-03-04] MEDS: Lidocaine 5% 700 MG Patch TRDERM SCH (11:28)
--- NOTE | 2021-03-04 11:50 | PCM.PN ---
- General Info Date of Service: 03/04/21 Subjective Update: No acute events overnight. Initially this morning the patient reported that her pain was quite uncomfortable but by the time I talked to her she was feeling bet ter. She has difficulty describing her rating her pain. She has not had any fevers. Urine culture remains negative. Kidney function improving. We did sit down with the family today and discussed situation and discharge options. Physical therapy feels that the patient could benefit from subacute rehab but no beds are available. Her is the main caregiver and he injured his left shoulder trying to take care of her and is not able to do all of the things necessary to care for her at home at this point. Additional family is unfortunately not available to pitch in much because of their busy work schedules. Family feels that she would be best off if she was at either an assisted living facility or subacute rehab facility until she can gain some strength. They did bring in her home medications which we reviewed and discussed which medications were of concern for falling. They reported that the patient had been managing all of her own medications and had a great deal of concern about this. Functional Status: Reports: Pain Controlled, Tolerating Diet - Review of Systems General: Reports: Weakness Musculoskeletal: Reports: Back Pain - Patient Data Vitals - Most Recent: Last Vital Signs Temp 35.1 C L 03/04/21 07:39 Pulse 77 03/04/21 07:39 Resp 16 03/04/21 07:39 BP 114/86 03/04/21 07:39 Pulse Ox 99 03/04/21 07:39 Weight - Most Recent: 58.287 kg I&O - Last 24 Hours: Intake & Output 03/03/21 03/04/21 03/04/21 22:59 06:59 14:59 Intake Total 360 Balance 360 Lab Results Last 24 Hours: Laboratory Results - last 24 hr 03/04/21 03/04/21 Range/Units 04:25 04:25 WBC 15.3 H (4.5-11.0) K/uL RBC 3.70 (3.30-5.50) M/uL Hgb 11.9 L (12.0-15.0) g/dL Hct 34.9 L (36.0-48.0) % MCV 94 (80-98) fL MCH 32 H (27-31) pg MCHC 34 (32-36) % Plt Count 635 H (150-400) K/uL Neut % (Auto) 68.0 H (36-66) % Lymph % (Auto) 18.7 L (24-44) % [place] % (Auto) 8.9 H (2-6) % Eos % (Auto) 4.0 (2-4) % Baso % (Auto) 0.4 (0-1) % ESR 23 (0-25) mm/hr Sodium 143 (140-148) mmol/L Potassium 4.2 (3.6-5.2) mmol/L Chloride 112 H (100-108) mmol/L Carbon Dioxide 18 L (21-32) mmol/L Anion Gap 17.2 H (5.0-14.0) mmol/L BUN 14 (7-18) mg/dL Creatinine 0.9 (0.6-1.0) mg/dL Est Cr Clr Drug Dosing 45.53 mL/min Estimated GFR (MDRD) > 60 (>60) Glucose 70 L (74-106) mg/dL Calcium 8.3 L (8.5-10.1) mg/dL Total Bilirubin 0.4 (0.2-1.0) mg/dL AST 21 (15-37) U/L ALT 17 (12-78) U/L Alkaline Phosphatase 111 (46-116) U/L Total Protein 5.3 L (6.4-8.2) g/dL Albumin 2.6 L (3.4-5.0) g/dL Globulin 2.7 (2.3-3.5) g/dL Albumin/Globulin Ratio 1.0 L (1.2-2.2) TSH, Ultra Sensitive 2.247 (0.358-3.740) uIU/mL Tim Results Last 24 Hours: Microbiology 02/28/21 21:00 Aerobic Blood Culture - Preliminary Blood - Arm, Left NO GROWTH AFTER 3 DAYS Anaerobic Blood Culture - Preliminary NO GROWTH AFTER 3 DAYS 02/28/21 21:05 Aerobic Blood Culture - Preliminary Blood - Arm, Right NO GROWTH AFTER 3 DAYS Anaerobic Blood Culture - Preliminary NO GROWTH AFTER 3 DAYS Med Orders - Current: Current Medications Acetaminophen (Acetaminophen 500 Mg Tab) 1,000 mg PO TID [place] Last Admin: 03/04/21 09:12 Dose: 1,000 mg Documented by: Aspirin (Aspirin 81 Mg Tab.Chew) 81 mg PO DAILY [facility] Last Admin: 03/04/21 09:11 Dose: 81 mg Documented by: Lidocaine (Lidocaine 5% 700 Mg Patch) 700 mg TRDERM Q24H [facility] Last Admin: 03/04/21 11:28 Dose: 700 mg Documented by: Miscellaneous Information (Remove Lidocaine Patch) 1 ea TRDERM BEDTIME [facility] Polyethylene Glycol (Polyethylene Glycol 3350 Powder 17 Gm Packet) 17 gm PO BEDTIME PRN PRN Reason: Constipation Last Admin: 03/04/21 00:51 Dose: 17 gm Documented by: Ramelteon (Ramelteon 8 Mg Tab) 8 mg PO BEDTIME [facility] Last Admin: 03/03/21 20:44 Dose: 8 mg Documented by: Tramadol HCl (Tramadol 50 Mg Tab) 50 mg PO Q6H PRN PRN Reason: Pain Last Admin: 03/04/21 09:11 Dose: 50 mg Documented by: Venlafaxine HCl (Venlafaxine 75 Mg Tab) 93.75 mg PO BID [facility] Last Admin: 03/04/21 09:11 Dose: 93.75 mg Documented by: Discontinued Medications Acetaminophen (Acetaminophen 500 Mg Tab) 1,000 mg PO ONETIME ONE Stop: 02/28/21 20:32 Last Admin: 02/28/21 20:35 Dose: 1,000 mg Documented by: Acetaminophen (Acetaminophen 325 Mg Tab) 650 mg PO Q4H PRN PRN Reason: Pain (mild 1-3) Hydrocodone Bitart/Acetaminophen (Acetaminophen/Hydrocodone 325-5 Mg Tab) 1 tab PO Q4H PRN PRN Reason: Pain (moderate 4-6) Last Admin: 03/03/21 07:39 Dose: 1 tab Documented by: Amoxicillin/Clavulanate Potassium (Amoxicillin/Clavulanate K 500-125 Mg Tab) 1 tab PO BID [facility] Last Admin: 03/03/21 09:22 Dose: 1 tab Documented by: Cyanocobalamin (Cyanocobalamin (Vitamin B12) 1,000 Mcg/Ml Sdv) 1,000 mcg IM ONETIME ONE Stop: 03/03/21 10:01 Last Admin: 03/03/21 12:51 Dose: 1,000 mcg Documented by: Dexamethasone (Dexamethasone 4 Mg/Ml Sdv) 4 mg IVPUSH Q24H [facility] Last Admin: 03/01/21 14:53 Dose: Not Given Documented by: Dexamethasone (Dexamethasone 4 Mg/Ml Sdv) 6 mg IVPUSH Q24H [place] Stop: 03/11/21 14:16 Enoxaparin Sodium (Enoxaparin 40 Mg/0.4 Ml Syringe) 40 mg SUBCUT DAILY [facility] Hydromorphone HCl (Hydromorphone 1 Mg/Ml Syringe) 1 mg IVPUSH ONETIME ONE Stop: 02/28/21 22:43 Last Admin: 02/28/21 23:03 Dose: 1 mg Documented by: Potassium Chloride/Sodium Chloride (Normal Saline With 20 Meq Kcl) 1,000 mls @ 1,000 mls/hr IV ASDIRECTED [facility] Last Admin: 02/28/21 20:27 Dose: 1,000 mls/hr Documented by: Ceftriaxone Sodium 1 gm/ (Sodium Chloride) 50 mls @ 100 mls/hr IV ONETIME ONE Stop: 02/28/21 21:02 Last Admin: 02/28/21 20:45 Dose: 100 mls/hr Documented by: Lactated Ringer's (Ringers, Lactated) 1,000 mls @ 100 mls/hr IV ASDIRECTED [place] Sodium Chloride (Normal Saline) 1,000 mls @ 100 mls/hr IV ASDIRECTED [facility] Last Admin: 02/28/21 23:02 Dose: 100 mls/hr Documented by: Ceftriaxone Sodium 1 gm/ (Sodium Chloride) 50 mls @ 100 mls/hr IV Q24H [place] Potassium Chloride/Sodium Chloride (1/2 Ns With 20 Meq Kcl) 1,000 mls @ 75 mls/hr IV ASDIRECTED [facility] Last Admin: 03/02/21 17:09 Dose: 75 mls/hr Documented by: Influenza Virus Vaccine (Flu Vacc Tu8334-38(65yr Up)/Pf 240 Mcg/0.7 Ml Syringe) 240 mcg IM .ONCE ONE Stop: 03/02/21 09:01 Last Admin: 03/02/21 10:52 Dose: Not Given Documented by: Ketorolac Tromethamine (Ketorolac 30 Mg/Ml Sdv) 15 mg IVPUSH ONETIME ONE Stop: 02/28/21 20:32 Last Admin: 02/28/21 20:36 Dose: 15 mg Documented by: Lorazepam (Lorazepam 0.5 Mg Tab) 0.25 mg PO BID PRN PRN Reason: Anxiety Morphine Sulfate (Morphine 2 Mg/Ml Syringe) 2 mg IVPUSH Q4H PRN PRN Reason: Pain (severe 7-10) Last Admin: 03/04/21 00:51 Dose: 2 mg Documented by: Potassium Chloride (Potassium Chloride 20 Meq Tab.Er) 20 meq PO ONETIME ONE Stop: 02/28/21 20:33 Last Admin: 02/28/21 20:35 Dose: 20 meq Documented by: Potassium Chloride (Potassium Chloride 20 Meq Tab.Er) 20 meq PO ONETIME ONE Stop: 02/28/21 21:37 Last Admin: 02/28/21 22:02 Dose: 20 meq Documented by: Potassium Chloride (Potassium Chloride 20 Meq Tab.Er) 20 meq PO ONETIME ONE Stop: 03/01/21 06:30 Last Admin: 03/01/21 07:37 Dose: 20 meq Documented by: Potassium Chloride (Potassium Chloride 20 Meq Tab.Er) 40 meq PO ONETIME ONE Stop: 03/03/21 09:01 Last Admin: 03/03/21 09:22 Dose: 40 meq Documented by: Trimethoprim/Sulfamethoxazole (Sulfamethoxazole/Trimethoprim 800-160 Mg Tab) 1 tab PO BID [place] Stop: 03/05/21 21:01 - Exam Quality Assessment: No: Supplemental Oxygen General: Alert, Oriented, Cooperative, No Acute Distress Lungs: Normal Respiratory Effort GI/Abdominal Exam: Soft, No Distention Extremities: No Pedal Edema Psy/Mental Status: Alert, Normal Affect - Patient Data Lab Results Last 24 hrs: Laboratory Results - last 24 hr 03/04/21 03/04/21 Range/Units 04:25 04:25 WBC 15.3 H (4.5-11.0) K/uL RBC 3.70 (3.30-5.50) M/uL Hgb 11.9 L (12.0-15.0) g/dL Hct 34.9 L (36.0-48.0) % MCV 94 (80-98) fL MCH 32 H (27-31) pg MCHC 34 (32-36) % Plt Count 635 H (150-400) K/uL Neut % (Auto) 68.0 H (36-66) % Lymph % (Auto) 18.7 L (24-44) % [place] % (Auto) 8.9 H (2-6) % Eos % (Auto) 4.0 (2-4) % Baso % (Auto) 0.4 (0-1) % ESR 23 (0-25) mm/hr Sodium 143 (140-148) mmol/L Potassium 4.2 (3.6-5.2) mmol/L Chloride 112 H (100-108) mmol/L Carbon Dioxide 18 L (21-32) mmol/L Anion Gap 17.2 H (5.0-14.0) mmol/L BUN 14 (7-18) mg/dL Creatinine 0.9 (0.6-1.0) mg/dL Est Cr Clr Drug Dosing 45.53 mL/min Estimated GFR (MDRD) > 60 (>60) Glucose 70 L (74-106) mg/dL Calcium 8.3 L (8.5-10.1) mg/dL Total Bilirubin 0.4 (0.2-1.0) mg/dL AST 21 (15-37) U/L ALT 17 (12-78) U/L Alkaline Phosphatase 111 (46-116) U/L Total Protein 5.3 L (6.4-8.2) g/dL Albumin 2.6 L (3.4-5.0) g/dL Globulin 2.7 (2.3-3.5) g/dL Albumin/Globulin Ratio 1.0 L (1.2-2.2) TSH, Ultra Sensitive 2.247 (0.358-3.740) uIU/mL Result Diagrams: 03/04/21 04:25 03/04/21 04:25 Tim Results Last 24 hrs: Microbiology 02/28/21 21:00 Aerobic Blood Culture - Preliminary Blood - Arm, Left NO GROWTH AFTER 3 DAYS Anaerobic Blood Culture - Preliminary NO GROWTH AFTER 3 DAYS 02/28/21 21:05 Aerobic Blood Culture - Preliminary Blood - Arm, Right NO GROWTH AFTER 3 DAYS Anaerobic Blood Culture - Preliminary NO GROWTH AFTER 3 DAYS Sepsis Event Note - Evaluation Sepsis Screening Result: Sepsis Risk - Focused Exam Vital Signs: Vital Signs Temp Pulse Resp BP Pulse Ox 03/04/21 07:39 35.1 C L 77 16 114/86 99 03/04/21 02:55 36.3 C 66 16 101/58 L 97 - Problem List Review Problem List Initiated/Reviewed/Updated: Yes - My Orders Last 24 Hours: My Active Orders 03/03/21 14:00 Acetaminophen [Tylenol Extra Strength] 1,000 mg PO TID 03/04/21 09:30 Lidocaine 5% [Lidoderm 5%] 700 mg TRDERM Q24H 03/04/21 21:00 Melatonin 9 mg PO BEDTIME Remove Patch 1 ea TRDERM BEDTIME - Plan Plan:: ASSESSMENT AND PLAN- Leukocytosis with concern for possible UTI-urine culture did not grow out any specific bacteria. Antibiotics have been discontinued. Recurrent falls-working with physical therapy, seems to be doing okay so far. She has had compression fractures because of the falls and we are working on pain control as discussed below. I suspect the falls were combination of deconditioning and probably more significant contribution from medication side effects as the patient was self administering medications without regard to schedule or interaction. Head CT was negative. -Review home medications prior to discharge, strongly consider simplifying regimen -Will need rehabilitation and likely a walker or wheelchair for mobility Vertebral compression fractures secondary to fall-moderate pain, infrequent use of as needed medications. -Scheduled acetaminophen -Tramadol for breakthrough pain -Trial of lidocaine patch -Physical therapy Leukocytosis, thrombocytosis, hypokalemia, renal insufficiency and metabolic acidosis-no localizing symptoms. Work-up so far has been unremarkable. Family does report the patient had been taking quite a bit of ibuprofen and this could explain some of her renal findings. No evidence for infection or malignancy so far. Generalized anxiety-stable. Lorazepam is a medication of concern. -Continue home dose of venlafaxine Cognitive deficits-no formal diagnosis of dementia but likely has Alzheimer's dementia with cognitive deficits. Patient is quite forgetful and had been managing her own medications. I do not believe she is safe to manage her own medications. She is on a variety of different medications that could be contributing to falls as above and could further cloud her judgment. Did review her medications with family today. Anticipate several adjustments to her home medication list prior to discharge home. -Melatonin at bedtime Maintenance issues- VTE prophylaxis: Baby aspirin, will not be giving enoxaparin even though she is at high risk due to her repeated episodes of falling GI prophylaxis: Not indicated Diet: Regular diet Disposition: Anticipate discharge to subacute rehab after this hospitalization versus possibly assisted living. Family feels she would be best served in a facility and they do not have adequate resources to provide care for her at this time. has injured himself trying to care for her and is now even less able to provide adequate care at home. Physical therapy recommending subacute rehab. Unfortunately no subacute beds are available in the near future. Darvin Stevenson MD
[2021-03-04 17:10] LABS: BASO (ABSOLUTE) 0.1 x10E3/uL (0.0-0.2); BASOS 1 % (Not Estab.); EOS 4 % (Not Estab.); EOS (ABSOLUTE) 0.6 x10E3/uL (0.0-0.4); HEMATOCRIT 33.7 % (34.0-46.6); HEMOGLOBIN 11.9 g/dL (11.1-15.9); IMMATURE GRANS (ABS) 0.1 x10E3/uL (0.0-0.1); IMMATURE GRANULOCYTES 1 % (Not Estab.); LYMPHS 17 % (Not Estab.); LYMPHS (ABSOLUTE) 2.6 x10E3/uL (0.7-3.1); MCH 33.5 pg (26.6-33.0); MCHC 35.3 g/dL (31.5-35.7); MCV 95 fL (79-97); MONOCYTES 7 % (Not Estab.); MONOCYTES(ABSOLUTE) 1.1 x10E3/uL (0.1-0.9); NEUTROPHILS 70 % (Not Estab.); NEUTROPHILS (ABSOLUTE) 10.6 x10E3/uL (1.4-7.0); PLATELETS 563 x10E3/uL (150-450); PLTS Appear normal. (.); RBC 3.55 x10E6/uL (3.77-5.28); RDW 13.1 % (11.7-15.4); WBC 15.1 x10E3/uL (3.4-10.8)
[2021-03-04] MEDS: Melatonin 3 MG Tab PO SCH (20:10)
[2021-03-05] MEDS: traMADol 50 MG Tab PO PRN ×4 (00:05→20:06)
[2021-03-05] MEDS: Venlafaxine 75 MG Tab PO SCH ×2 (08:31→19:59)
[2021-03-05] MEDS: Aspirin 81 MG Tab.Chew PO SCH (08:31)
[2021-03-05] MEDS: Lidocaine 5% 700 MG Patch TRDERM SCH (08:32)
[2021-03-05] MEDS: Acetaminophen 500 MG Tab PO SCH ×3 (08:32→20:00)
[2021-03-05] MEDS: Magnesium Hydroxide 400 MG/5 ML Susp 30 ML Cup PO PRN (12:12)
--- NOTE | 2021-03-05 16:13 | PCM.PN ---
- General Info Date of Service: 03/05/21 Subjective Update: No acute events overnight. Patient reports acceptable pain control but she does have at least mild constant back pain. She thinks she is moving a little bit be tter. Her thinks she is more clear today than she has been. She slept well last night. Continues to require a walker and assist to get around. Appetite has been okay. So far we have not been able to locate subacute rehab facility for her. Functional Status: Reports: Pain Controlled - Review of Systems General: Reports: Weakness - Patient Data Vitals - Most Recent: Last Vital Signs Temp 36.5 C 03/05/21 15:00 Pulse 74 03/05/21 15:00 Resp 16 03/05/21 15:00 BP 92/61 03/05/21 15:00 Pulse Ox 100 03/05/21 15:00 Weight - Most Recent: 58.287 kg I&O - Last 24 Hours: Intake & Output 03/05/21 03/05/21 03/05/21 06:59 14:59 22:59 Intake Total 320 320 Balance 320 320 Lab Results Last 24 Hours: Laboratory Results - last 24 hr 03/03/21 Range/Units 04:45 WBC (Send Out) 15.1 H (3.4-10.8) x10E3/uL RBC (Send Out) 3.55 L (3.77-5.28) x10E6/uL Hgb (Send Out) 11.9 (11.1-15.9) g/dL Hct (Send Out) 33.7 L (34.0-46.6) % MCV (Send Out) 95 (79-97) fL MCH (Send Out) 33.5 H (26.6-33.0) pg MCHC (Send Out) 35.3 (31.5-35.7) g/dL Red Cell Dist (Send Out) 13.1 (11.7-15.4) % Plt Count (Send Out) 563 H (150-450) x10E3/uL Diff Scan Comment H (.) Immature Gran % 1 (Not Estab.) % Neutrophils % Send Out 70 (Not Estab.) % Band Neutrophils % Not Reportable Lymphocytes % (Send Out) 17 (Not Estab.) % Monocytes % (Send Out) 7 (Not Estab.) % Eosinophils % Send Out 4 (Not Estab.) % Basophils % (Send Out) 1 (Not Estab.) % Metamyelocytes % Not Reportable Myelocytes % Not Reportable Promyelocytes % Not Reportable Blast Cells % Not Reportable Megakaryocytes % Not Reportable Other Cells % Not Reportable Immature Gran # 0.1 (0.0-0.1) x10E3/uL Neutrophils # (Send Out) 10.6 H (1.4-7.0) x10E3/uL Lymphocytes # (Send Out) 2.6 (0.7-3.1) x10E3/uL Monocytes #(Send Out) 1.1 H (0.1-0.9) x10E3/uL Eosinophils # Send Out 0.6 H (0.0-0.4) x10E3/uL Basophils # (Send Out) 0.1 (0.0-0.2) x10E3/uL Nucleated RBCs Send Out TNP Immature Cells Send Out TNP Platelet Morphology Appear normal. (.) RBC Morphology Comment H (.) Peripher Smr Path Cons TNP Smear Path Review Comment (.) Hematology Comments TNP Tim Results Last 24 Hours: Microbiology 02/28/21 21:05 Aerobic Blood Culture - Preliminary Blood - Arm, Right NO GROWTH AFTER 4 DAYS Anaerobic Blood Culture - Preliminary NO GROWTH AFTER 4 DAYS 02/28/21 21:00 Aerobic Blood Culture - Preliminary Blood - Arm, Left NO GROWTH AFTER 4 DAYS Anaerobic Blood Culture - Preliminary NO GROWTH AFTER 4 DAYS Med Orders - Current: Current Medications Acetaminophen (Acetaminophen 500 Mg Tab) 1,000 mg PO TID [facility] Last Admin: 03/05/21 14:07 Dose: 1,000 mg Documented by: Aspirin (Aspirin 81 Mg Tab.Chew) 81 mg PO DAILY [facility] Last Admin: 03/05/21 08:31 Dose: 81 mg Documented by: Lidocaine (Lidocaine 5% 700 Mg Patch) 700 mg TRDERM Q24H [facility] Last Admin: 03/05/21 08:32 Dose: 700 mg Documented by: Magnesium Hydroxide (Magnesium Hydroxide 400 Mg/5 Ml Susp 30 Ml Cup) 30 ml PO BID PRN PRN Reason: Constipation Last Admin: 03/05/21 12:12 Dose: 30 ml Documented by: Melatonin (Melatonin 3 Mg Tab) 9 mg PO BEDTIME [facility] Last Admin: 03/04/21 20:10 Dose: 9 mg Documented by: Miscellaneous Information (Remove Lidocaine Patch) 1 ea TRDERM BEDTIME [facility] Last Admin: 03/04/21 20:10 Dose: 1 ea Documented by: Polyethylene Glycol (Polyethylene Glycol 3350 Powder 17 Gm Packet) 17 gm PO BEDTIME PRN PRN Reason: Constipation Last Admin: 03/04/21 00:51 Dose: 17 gm Documented by: Ramelteon (Ramelteon 8 Mg Tab) 8 mg PO BEDTIME [facility] Last Admin: 03/04/21 20:10 Dose: 8 mg Documented by: Tramadol HCl (Tramadol 50 Mg Tab) 50 mg PO Q6H PRN PRN Reason: Pain Last Admin: 03/05/21 14:09 Dose: 50 mg Documented by: Venlafaxine HCl (Venlafaxine 75 Mg Tab) 93.75 mg PO BID [facility] Last Admin: 03/05/21 08:31 Dose: 93.75 mg Documented by: Discontinued Medications Acetaminophen (Acetaminophen 500 Mg Tab) 1,000 mg PO ONETIME ONE Stop: 02/28/21 20:32 Last Admin: 02/28/21 20:35 Dose: 1,000 mg Documented by: Acetaminophen (Acetaminophen 325 Mg Tab) 650 mg PO Q4H PRN PRN Reason: Pain (mild 1-3) Hydrocodone Bitart/Acetaminophen (Acetaminophen/Hydrocodone 325-5 Mg Tab) 1 tab PO Q4H PRN PRN Reason: Pain (moderate 4-6) Last Admin: 03/03/21 07:39 Dose: 1 tab Documented by: Amoxicillin/Clavulanate Potassium (Amoxicillin/Clavulanate K 500-125 Mg Tab) 1 tab PO BID [facility] Last Admin: 03/03/21 09:22 Dose: 1 tab Documented by: Cyanocobalamin (Cyanocobalamin (Vitamin B12) 1,000 Mcg/Ml Sdv) 1,000 mcg IM ONETIME ONE Stop: 03/03/21 10:01 Last Admin: 03/03/21 12:51 Dose: 1,000 mcg Documented by: Dexamethasone (Dexamethasone 4 Mg/Ml Sdv) 4 mg IVPUSH Q24H [facility] Last Admin: 03/01/21 14:53 Dose: Not Given Documented by: Dexamethasone (Dexamethasone 4 Mg/Ml Sdv) 6 mg IVPUSH Q24H [facility] Stop: 03/11/21 14:16 Enoxaparin Sodium (Enoxaparin 40 Mg/0.4 Ml Syringe) 40 mg SUBCUT DAILY [facility] Hydromorphone HCl (Hydromorphone 1 Mg/Ml Syringe) 1 mg IVPUSH ONETIME ONE Stop: 02/28/21 22:43 Last Admin: 02/28/21 23:03 Dose: 1 mg Documented by: Potassium Chloride/Sodium Chloride (Normal Saline With 20 Meq Kcl) 1,000 mls @ 1,000 mls/hr IV ASDIRECTED [facility] Last Admin: 02/28/21 20:27 Dose: 1,000 mls/hr Documented by: Ceftriaxone Sodium 1 gm/ (Sodium Chloride) 50 mls @ 100 mls/hr IV ONETIME ONE Stop: 02/28/21 21:02 Last Admin: 02/28/21 20:45 Dose: 100 mls/hr Documented by: Lactated Ringer's (Ringers, Lactated) 1,000 mls @ 100 mls/hr IV ASDIRECTED [facility] Sodium Chloride (Normal Saline) 1,000 mls @ 100 mls/hr IV ASDIRECTED [facility] Last Admin: 02/28/21 23:02 Dose: 100 mls/hr Documented by: Ceftriaxone Sodium 1 gm/ (Sodium Chloride) 50 mls @ 100 mls/hr IV Q24H [facility] Potassium Chloride/Sodium Chloride (1/2 Ns With 20 Meq Kcl) 1,000 mls @ 75 m ls/hr IV ASDIRECTED [facility] Last Admin: 03/02/21 17:09 Dose: 75 mls/hr Documented by: Influenza Virus Vaccine (Flu Vacc [id number](65yr Up)/Pf 240 Mcg/0.7 Ml Syringe) 240 mcg IM .ONCE ONE Stop: 03/02/21 09:01 Last Admin: 03/02/21 10:52 Dose: Not Given Documented by: Ketorolac Tromethamine (Ketorolac 30 Mg/Ml Sdv) 15 mg IVPUSH ONETIME ONE Stop: 02/28/21 20:32 Last Admin: 02/28/21 20:36 Dose: 15 mg Documented by: Lorazepam (Lorazepam 0.5 Mg Tab) 0.25 mg PO BID PRN PRN Reason: Anxiety Morphine Sulfate (Morphine 2 Mg/Ml Syringe) 2 mg IVPUSH Q4H PRN PRN Reason: Pain (severe 7-10) Last Admin: 03/04/21 00:51 Dose: 2 mg Documented by: Potassium Chloride (Potassium Chloride 20 Meq Tab.Er) 20 meq PO ONETIME ONE Stop: 02/28/21 20:33 Last Admin: 02/28/21 20:35 Dose: 20 meq Documented by: Potassium Chloride (Potassium Chloride 20 Meq Tab.Er) 20 meq PO ONETIME ONE Stop: 02/28/21 21:37 Last Admin: 02/28/21 22:02 Dose: 20 meq Documented by: Potassium Chloride (Potassium Chloride 20 Meq Tab.Er) 20 meq PO ONETIME ONE Stop: 03/01/21 06:30 Last Admin: 03/01/21 07:37 Dose: 20 meq Documented by: Potassium Chloride (Potassium Chloride 20 Meq Tab.Er) 40 meq PO ONETIME ONE Stop: 03/03/21 09:01 Last Admin: 03/03/21 09:22 Dose: 40 meq Documented by: Trimethoprim/Sulfamethoxazole (Sulfamethoxazole/Trimethoprim 800-160 Mg Tab) 1 tab PO BID [facility] Stop: 03/05/21 21:01 - Exam General: Alert, Cooperative, No Acute Distress. No: Oriented Lungs: Normal Respiratory Effort GI/Abdominal Exam: Soft, No Distention Extremities: No Pedal Edema Skin: Warm, Dry Psy/Mental Status: Alert, Normal Affect - Patient Data Lab Results Last 24 hrs: Laboratory Results - last 24 hr 03/03/21 Range/Units 04:45 WBC (Send Out) 15.1 H (3.4-10.8) x10E3/uL RBC (Send Out) 3.55 L (3.77-5.28) x10E6/uL Hgb (Send Out) 11.9 (11.1-15.9) g/dL Hct (Send Out) 33.7 L (34.0-46.6) % MCV (Send Out) 95 (79-97) fL MCH (Send Out) 33.5 H (26.6-33.0) pg MCHC (Send Out) 35.3 (31.5-35.7) g/dL Red Cell Dist (Send Out) 13.1 (11.7-15.4) % Plt Count (Send Out) 563 H (150-450) x10E3/uL Diff Scan Comment H (.) Immature Gran % 1 (Not Estab.) % Neutrophils % Send Out 70 (Not Estab.) % Band Neutrophils % Not Reportable Lymphocytes % (Send Out) 17 (Not Estab.) % Monocytes % (Send Out) 7 (Not Estab.) % Eosinophils % Send Out 4 (Not Estab.) % Basophils % (Send Out) 1 (Not Estab.) % Metamyelocytes % Not Reportable Myelocytes % Not Reportable Promyelocytes % Not Reportable Blast Cells % Not Reportable Megakaryocytes % Not Reportable Other Cells % Not Reportable Immature Gran # 0.1 (0.0-0.1) x10E3/uL Neutrophils # (Send Out) 10.6 H (1.4-7.0) x10E3/uL Lymphocytes # (Send Out) 2.6 (0.7-3.1) x10E3/uL Monocytes #(Send Out) 1.1 H (0.1-0.9) x10E3/uL Eosinophils # Send Out 0.6 H (0.0-0.4) x10E3/uL Basophils # (Send Out) 0.1 (0.0-0.2) x10E3/uL Nucleated RBCs Send Out TNP Immature Cells Send Out TNP Platelet Morphology Appear normal. (.) RBC Morphology Comment H (.) Peripher Smr Path Cons TNP Smear Path Review Comment (.) Hematology Comments TNP Result Diagrams: 03/04/21 04:25 03/04/21 04:25 Tim Results Last 24 hrs: Microbiology 02/28/21 21:05 Aerobic Blood Culture - Preliminary Blood - Arm, Right NO GROWTH AFTER 4 DAYS Anaerobic Blood Culture - Preliminary NO GROWTH AFTER 4 DAYS 02/28/21 21:00 Aerobic Blood Culture - Preliminary Blood - Arm, Left NO GROWTH AFTER 4 DAYS Anaerobic Blood Culture - Preliminary NO GROWTH AFTER 4 DAYS Sepsis Event Note - Evaluation Sepsis Screening Result: No Definite Risk - Focused Exam Vital Signs: Vital Signs Temp Pulse Resp BP Pulse Ox 03/05/21 15:00 36.5 C 74 16 92/61 100 03/05/21 10:28 36.3 C 77 16 135/73 100 03/05/21 07:00 36.6 C 78 16 121/74 98 - Problem List Review Problem List Initiated/Reviewed/Updated: Yes - My Orders Last 24 Hours: My Active Orders 03/04/21 21:00 Melatonin 9 mg PO BEDTIME Remove Patch 1 ea TRDERM BEDTIME 03/05/21 09:31 Magnesium Hydroxide [Milk of Magnesia] 30 ml PO BID PRN 03/06/21 05:00 BASIC METABOLIC PANEL,BMP [CHEM] Timed CBC W/O DIFF,HEMOGRAM [HEME] Timed (1) - Plan Plan:: ASSESSMENT AND PLAN- Leukocytosis with concern for possible UTI-urine culture did not grow out any specific bacteria. Antibiotics have been discontinued. Peripheral smear did not show any specific pathology. Recurrent falls-probably related to medications and deconditioning. Working with physical therapy and making some progress but still has quite limited mobi lity. -Review home medications prior to discharge -Will need rehabilitation and likely a walker or wheelchair for mobility Vertebral compression fractures secondary to fall-moderate pain, infrequent use of as needed medications. -Scheduled acetaminophen -Tramadol for breakthrough pain -Trial of lidocaine patch -Physical therapy Leukocytosis, thrombocytosis, hypokalemia, renal insufficiency and metabolic acidosis-no localizing symptoms. Work-up so far has been unremarkable. Family does report the patient had been taking quite a bit of ibuprofen and this could explain some of her renal findings. No evidence for infection or malignancy so far. Generalized anxiety-stable. Lorazepam is a medication of concern. -Continue home dose of venlafaxine Cognitive deficits-no formal diagnosis of dementia but likely has Alzheimer's dementia with cognitive deficits. Patient is pleasantly confused but able to have a conversation as long as the topics are simple. No behavior issues. -Melatonin at bedtime Maintenance issues- VTE prophylaxis: Baby aspirin, will not be giving enoxaparin even though she is at high risk due to her repeated episodes of falling GI prophylaxis: Not indicated Diet: Regular diet Disposition: Anticipate discharge to subacute rehab after this hospitalization versus possibly assisted living. Family feels she would be best served in a facility and they do not have adequate resources to provide care for her at this time. has injured himself trying to care for her and is now even less able to provide adequate care at home. Physical therapy recommending subacute rehab. Unfortunately no subacute beds are available in the near future. Darvin Stevenson MD
[2021-03-05] MEDS: Melatonin 3 MG Tab PO SCH (20:00)
[2021-03-06] MEDS: Venlafaxine 75 MG Tab PO SCH ×2 (09:14→21:16)
[2021-03-06] MEDS: Aspirin 81 MG Tab.Chew PO SCH (09:14)
[2021-03-06] MEDS: Lidocaine 5% 700 MG Patch TRDERM SCH (09:15)
[2021-03-06] MEDS: Acetaminophen 500 MG Tab PO SCH ×3 (09:15→21:15)
[2021-03-06] MEDS: Magnesium Hydroxide 400 MG/5 ML Susp 30 ML Cup PO PRN (09:19)
--- NOTE | 2021-03-06 10:27 | PCM.PN ---
- General Info Date of Service: 03/06/21 Subjective Update: No acute events overnight. Back pain has been stable. Appetite acceptable. Getting around with a small amount of assistance. Sleeping well. Bowels have not been moving yet despite stimulation. Functional Status: Reports: Pain Controlled, Tolerating Diet - Review of Systems General: Reports: Weakness Musculoskeletal: Reports: Back Pain - Patient Data Vitals - Most Recent: Last Vital Signs Temp 36.4 C 03/06/21 07:00 Pulse 69 03/06/21 07:00 Resp 16 03/06/21 07:00 BP 118/59 L 03/06/21 07:00 Pulse Ox 98 03/06/21 07:00 Weight - Most Recent: 58.287 kg I&O - Last 24 Hours: Intake & Output 03/05/21 03/06/21 03/06/21 22:59 06:59 14:59 Intake Total 1180 Balance 1180 Lab Results Last 24 Hours: Laboratory Results - last 24 hr 03/03/21 03/06/21 03/06/21 Range/Units 04:45 05:20 05:20 WBC 14.3 H (4.5-11.0) K/uL RBC 3.61 (3.30-5.50) M/uL Hgb 11.9 L (12.0-15.0) g/dL Hct 34.9 L (36.0-48.0) % MCV 97 (80-98) fL MCH 33 H (27-31) pg MCHC 34 (32-36) % Plt Count 654 H (150-400) K/uL Band Neutrophils % Not Reportable Metamyelocytes % Not Reportable Myelocytes % Not Reportable Promyelocytes % Not Reportable Blast Cells % Not Reportable Megakaryocytes % Not Reportable Other Cells % Not Reportable Sodium 144 (140-148) mmol/L Potassium 4.8 (3.6-5.2) mmol/L Chloride 111 H (100-108) mmol/L Carbon Dioxide 22 (21-32) mmol/L Anion Gap 15.8 H (5.0-14.0) mmol/L BUN 14 (7-18) mg/dL Creatinine 0.9 (0.6-1.0) mg/dL Est Cr Clr Drug Dosing 45.53 mL/min Estimated GFR (MDRD) > 60 (>60) Glucose 73 L (74-106) mg/dL Calcium 8.6 (8.5-10.1) mg/dL Tim Results Last 24 Hours: Microbiology 02/28/21 21:00 Aerobic Blood Culture - Final Blood - Arm, Left NO GROWTH AFTER 5 DAYS Anaerobic Blood Culture - Final NO GROWTH AFTER 5 DAYS 02/28/21 21:05 Aerobic Blood Culture - Final Blood - Arm, Right NO GROWTH AFTER 5 DAYS Anaerobic Blood Culture - Final NO GROWTH AFTER 5 DAYS Med Orders - Current: Current Medications Acetaminophen (Acetaminophen 500 Mg Tab) 1,000 mg PO TID [facility] Last Admin: 03/06/21 09:15 Dose: 1,000 mg Documented by: Aspirin (Aspirin 81 Mg Tab.Chew) 81 mg PO DAILY [facility] Last Admin: 03/06/21 09:14 Dose: 81 mg Documented by: Lidocaine (Lidocaine 5% 700 Mg Patch) 700 mg TRDERM Q24H [facility] Last Admin: 03/06/21 09:15 Dose: 700 mg Documented by: Magnesium Hydroxide (Magnesium Hydroxide 400 Mg/5 Ml Susp 30 Ml Cup) 30 ml PO BID PRN PRN Reason: Constipation Last Admin: 03/06/21 09:19 Dose: 30 ml Documented by: Melatonin (Melatonin 3 Mg Tab) 9 mg PO BEDTIME [facility] Last Admin: 03/05/21 20:00 Dose: 9 mg Documented by: Miscellaneous Information (Remove Lidocaine Patch) 1 ea TRDERM BEDTIME [facility] Last Admin: 03/05/21 20:04 Dose: Not Given Documented by: Polyethylene Glycol (Polyethylene Glycol 3350 Powder 17 Gm Packet) 17 gm PO BEDTIME PRN PRN Reason: Constipation Last Admin: 03/04/21 00:51 Dose: 17 gm Documented by: Ramelteon (Ramelteon 8 Mg Tab) 8 mg PO BEDTIME [facility] Last Admin: 03/05/21 19:59 Dose: 8 mg Documented by: Tramadol HCl (Tramadol 50 Mg Tab) 50 mg PO Q6H PRN PRN Reason: Pain Last Admin: 03/05/21 20:06 Dose: 50 mg Documented by: Venlafaxine HCl (Venlafaxine 75 Mg Tab) 93.75 mg PO BID [facility] Last Admin: 03/06/21 09:14 Dose: 93.75 mg Documented by: Discontinued Medications Acetaminophen (Acetaminophen 500 Mg Tab) 1,000 mg PO ONETIME ONE Stop: 02/28/21 20:32 Last Admin: 02/28/21 20:35 Dose: 1,000 mg Documented by: Acetaminophen (Acetaminophen 325 Mg Tab) 650 mg PO Q4H PRN PRN Reason: Pain (mild 1-3) Hydrocodone Bitart/Acetaminophen (Acetaminophen/Hydrocodone 325-5 Mg Tab) 1 tab PO Q4H PRN PRN Reason: Pain (moderate 4-6) Last Admin: 03/03/21 07:39 Dose: 1 tab Documented by: Amoxicillin/Clavulanate Potassium (Amoxicillin/Clavulanate K 500-125 Mg Tab) 1 tab PO BID [facility] Last Admin: 03/03/21 09:22 Dose: 1 tab Documented by: Cyanocobalamin (Cyanocobalamin (Vitamin B12) 1,000 Mcg/Ml Sdv) 1,000 mcg IM ONETIME ONE Stop: 03/03/21 10:01 Last Admin: 03/03/21 12:51 Dose: 1,000 mcg Documented by: Dexamethasone (Dexamethasone 4 Mg/Ml Sdv) 4 mg IVPUSH Q24H [facility] Last Admin: 03/01/21 14:53 Dose: Not Given Documented by: Dexamethasone (Dexamethasone 4 Mg/Ml Sdv) 6 mg IVPUSH Q24H [facility] Stop: 03/11/21 14:16 Enoxaparin Sodium (Enoxaparin 40 Mg/0.4 Ml Syringe) 40 mg SUBCUT DAILY [facility] Hydromorphone HCl (Hydromorphone 1 Mg/Ml Syringe) 1 mg IVPUSH ONETIME ONE Stop: 02/28/21 22:43 Last Admin: 02/28/21 23:03 Dose: 1 mg Documented by: Potassium Chloride/Sodium Chloride (Normal Saline With 20 Meq Kcl) 1,000 mls @ 1,000 mls/hr IV ASDIRECTED [facility] Last Admin: 02/28/21 20:27 Dose: 1,000 mls/hr Documented by: Ceftriaxone Sodium 1 gm/ (Sodium Chloride) 50 mls @ 100 mls/hr IV ONETIME ONE Stop: 02/28/21 21:02 Last Admin: 02/28/21 20:45 Dose: 100 mls/hr Documented by: Lactated Ringer's (Ringers, Lactated) 1,000 mls @ 100 mls/hr IV ASDIRECTED [facility] Sodium Chloride (Normal Saline) 1,000 mls @ 100 mls/hr IV ASDIRECTED [facility] Last Admin: 02/28/21 23:02 Dose: 100 mls/hr Documented by: Ceftriaxone Sodium 1 gm/ (Sodium Chloride) 50 mls @ 100 mls/hr IV Q24H [facility] Potassium Chloride/Sodium Chloride (1/2 Ns With 20 Meq Kcl) 1,000 mls @ 75 m ls/hr IV ASDIRECTED [facility] Last Admin: 03/02/21 17:09 Dose: 75 mls/hr Documented by: Influenza Virus Vaccine (Flu Vacc [id number](65yr Up)/Pf 240 Mcg/0.7 Ml Syringe) 240 mcg IM .ONCE ONE Stop: 03/02/21 09:01 Last Admin: 03/02/21 10:52 Dose: Not Given Documented by: Ketorolac Tromethamine (Ketorolac 30 Mg/Ml Sdv) 15 mg IVPUSH ONETIME ONE Stop: 02/28/21 20:32 Last Admin: 02/28/21 20:36 Dose: 15 mg Documented by: Lorazepam (Lorazepam 0.5 Mg Tab) 0.25 mg PO BID PRN PRN Reason: Anxiety Morphine Sulfate (Morphine 2 Mg/Ml Syringe) 2 mg IVPUSH Q4H PRN PRN Reason: Pain (severe 7-10) Last Admin: 03/04/21 00:51 Dose: 2 mg Documented by: Potassium Chloride (Potassium Chloride 20 Meq Tab.Er) 20 meq PO ONETIME ONE Stop: 02/28/21 20:33 Last Admin: 02/28/21 20:35 Dose: 20 meq Documented by: Potassium Chloride (Potassium Chloride 20 Meq Tab.Er) 20 meq PO ONETIME ONE Stop: 02/28/21 21:37 Last Admin: 02/28/21 22:02 Dose: 20 meq Documented by: Potassium Chloride (Potassium Chloride 20 Meq Tab.Er) 20 meq PO ONETIME ONE Stop: 03/01/21 06:30 Last Admin: 03/01/21 07:37 Dose: 20 meq Documented by: Potassium Chloride (Potassium Chloride 20 Meq Tab.Er) 40 meq PO ONETIME ONE Stop: 03/03/21 09:01 Last Admin: 03/03/21 09:22 Dose: 40 meq Documented by: Trimethoprim/Sulfamethoxazole (Sulfamethoxazole/Trimethoprim 800-160 Mg Tab) 1 tab PO BID [facility] Stop: 03/05/21 21:01 - Exam Quality Assessment: No: Supplemental Oxygen General: Alert, Cooperative, No Acute Distress Lungs: Normal Respiratory Effort GI/Abdominal Exam: Soft, No Distention Extremities: No Pedal Edema Skin: Warm, Dry Psy/Mental Status: Alert, Normal Affect - Patient Data Lab Results Last 24 hrs: Laboratory Results - last 24 hr 03/03/21 03/06/21 03/06/21 Range/Units 04:45 05:20 05:20 WBC 14.3 H (4.5-11.0) K/uL RBC 3.61 (3.30-5.50) M/uL Hgb 11.9 L (12.0-15.0) g/dL Hct 34.9 L (36.0-48.0) % MCV 97 (80-98) fL MCH 33 H (27-31) pg MCHC 34 (32-36) % Plt Count 654 H (150-400) K/uL Band Neutrophils % Not Reportable Metamyelocytes % Not Reportable Myelocytes % Not Reportable Promyelocytes % Not Reportable Blast Cells % Not Reportable Megakaryocytes % Not Reportable Other Cells % Not Reportable Sodium 144 (140-148) mmol/L Potassium 4.8 (3.6-5.2) mmol/L Chloride 111 H (100-108) mmol/L Carbon Dioxide 22 (21-32) mmol/L Anion Gap 15.8 H (5.0-14.0) mmol/L BUN 14 (7-18) mg/dL Creatinine 0.9 (0.6-1.0) mg/dL Est Cr Clr Drug Dosing 45.53 mL/min Estimated GFR (MDRD) > 60 (>60) Glucose 73 L (74-106) mg/dL Calcium 8.6 (8.5-10.1) mg/dL Result Diagrams: 03/06/21 05:20 03/06/21 05:20 Tim Results Last 24 hrs: Microbiology 02/28/21 21:00 Aerobic Blood Culture - Final Blood - Arm, Left NO GROWTH AFTER 5 DAYS Anaerobic Blood Culture - Final NO GROWTH AFTER 5 DAYS 02/28/21 21:05 Aerobic Blood Culture - Final Blood - Arm, Right NO GROWTH AFTER 5 DAYS Anaerobic Blood Culture - Final NO GROWTH AFTER 5 DAYS Sepsis Event Note - Evaluation Sepsis Screening Result: No Definite Risk - Focused Exam Vital Signs: Vital Signs Temp Pulse Resp BP Pulse Ox 03/06/21 07:00 36.4 C 69 16 118/59 L 98 03/06/21 04:00 35.3 C L 67 16 110/68 99 - Problem List Review Problem List Initiated/Reviewed/Updated: Yes - My Orders Last 24 Hours: My Active Orders 03/05/21 09:31 Magnesium Hydroxide [Milk of Magnesia] 30 ml PO BID PRN 03/05/21 16:47 Consult to Physical Therapy [PT Evaluation and Treatment] [CONS] BID - Plan Plan:: ASSESSMENT AND PLAN- Leukocytosis with concern for possible UTI-urine culture did not grow out any specific bacteria. Antibiotics have been discontinued. Peripheral smear did not show any specific pathology. Recurrent falls-probably related to medications and deconditioning. Working with physical therapy and making some progress but still has somewhat limited mobility. -Review home medications prior to discharge -Will need rehabilitation and likely a walker or wheelchair for mobility Vertebral compression fractures secondary to fall-moderate pain that overall seems to be well controlled. -Scheduled acetaminophen -Tramadol for breakthrough pain -Trial of lidocaine patch -Physical therapy Leukocytosis, thrombocytosis, hypokalemia, renal insufficiency and metabolic acidosis-no localizing symptoms. Work-up so far has been unremarkable. Family does report the patient had been taking quite a bit of ibuprofen and this could explain some of her renal findings. Sedimentation rate normal. Peripheral smear did not show any definite evidence for hematologic malignancy. Generalized anxiety-stable. Lorazepam is a medication of concern. -Continue home dose of venlafaxine Cognitive deficits-no formal diagnosis of dementia but likely has Alzheimer's dementia with cognitive deficits. Patient is pleasantly confused but able to have a conversation as long as the topics are simple. No behavior issues. -Melatonin at bedtime Maintenance issues- VTE prophylaxis: Baby aspirin, will not be giving enoxaparin even though she is at high risk due to her repeated episodes of falling GI prophylaxis: Not indicated Diet: Regular diet Disposition: Anticipate discharge to subacute rehab after this hospitalization versus possibly assisted living. Family feels she would be best served in a facility and they do not have adequate resources to provide care for her at this time. has injured himself trying to care for her and is now even less able to provide adequate care at home. Physical therapy recommending subacute rehab. Unfortunately no subacute beds are available in the near future. Darvin Stevenson MD
[2021-03-06] MEDS: traMADol 50 MG Tab PO PRN ×2 (10:35→21:16)
[2021-03-06] MEDS: Melatonin 3 MG Tab PO SCH (21:15)
[2021-03-07] MEDS ORDERED: Ibuprofen 600 MG Tab PO ONE (00:20)
[2021-03-07] MEDS: Acetaminophen 500 MG Tab PO SCH ×3 (08:09→20:03)
[2021-03-07] MEDS: Venlafaxine 75 MG Tab PO SCH ×2 (08:09→20:04)
[2021-03-07] MEDS: Aspirin 81 MG Tab.Chew PO SCH (08:10)
[2021-03-07] MEDS: traMADol 50 MG Tab PO PRN ×3 (08:10→22:53)
[2021-03-07] MEDS: Polyethylene Glycol 3350 Powder 17 GM Packet PO PRN (08:17)
[2021-03-07] MEDS ORDERED: Bisacodyl 5 MG Tab PO ONE (09:33)
[2021-03-07] MEDS: Lidocaine 5% 700 MG Patch TRDERM SCH (10:09)
--- NOTE | 2021-03-07 10:14 | PCM.PN ---
- General Info Date of Service: 03/07/21 Subjective Update: There were no acute events overnight. Pain has been fairly well controlled. She does have an increase in pain with activity but so far it has been tolerable. Appetite slowly improving. Her thinks that mentally she has been improving steadily throughout the hospital stay. Vital signs have been stable. Sounds like we should have subacute rehab placement on Wednesday. Functional Status: Reports: Pain Controlled, Tolerating Diet - Review of Systems General: Reports: Weakness - Patient Data Vitals - Most Recent: Last Vital Signs Temp 35.2 C L 03/07/21 07:00 Pulse 68 03/07/21 07:00 Resp 18 03/07/21 07:00 BP 111/62 03/07/21 07:00 Pulse Ox 98 03/07/21 07:00 Weight - Most Recent: 58.287 kg I&O - Last 24 Hours: Intake & Output 03/06/21 03/07/21 03/07/21 22:59 06:59 14:59 Intake Total 520 300 Balance 520 300 Med Orders - Current: Current Medications Acetaminophen (Acetaminophen 500 Mg Tab) 1,000 mg PO TID [facility] Last Admin: 03/07/21 08:09 Dose: 1,000 mg Documented by: Aspirin (Aspirin 81 Mg Tab.Chew) 81 mg PO DAILY [facility] Last Admin: 03/07/21 08:10 Dose: 81 mg Documented by: Lidocaine (Lidocaine 5% 700 Mg Patch) 700 mg TRDERM Q24H [facility] Last Admin: 03/07/21 10:09 Dose: 700 mg Documented by: Magnesium Hydroxide (Magnesium Hydroxide 400 Mg/5 Ml Susp 30 Ml Cup) 30 ml PO BID PRN PRN Reason: Constipation Last Admin: 03/06/21 09:19 Dose: 30 ml Documented by: Melatonin (Melatonin 3 Mg Tab) 9 mg PO BEDTIME [facility] Last Admin: 03/06/21 21:15 Dose: 9 mg Documented by: Miscellaneous Information (Remove Lidocaine Patch) 1 ea TRDERM BEDTIME [facility] Last Admin: 03/06/21 21:18 Dose: Not Given Documented by: Polyethylene Glycol (Polyethylene Glycol 3350 Powder 17 Gm Packet) 17 gm PO BEDTIME PRN PRN Reason: Constipation Last Admin: 03/07/21 08:17 Dose: 17 gm Documented by: Ramelteon (Ramelteon 8 Mg Tab) 8 mg PO BEDTIME [facility] Last Admin: 03/06/21 21:16 Dose: 8 mg Documented by: Tramadol HCl (Tramadol 50 Mg Tab) 50 mg PO Q6H PRN PRN Reason: Pain Last Admin: 03/07/21 08:10 Dose: 50 mg Documented by: Venlafaxine HCl (Venlafaxine 75 Mg Tab) 93.75 mg PO BID [facility] Last Admin: 03/07/21 08:09 Dose: 93.75 mg Documented by: Discontinued Medications Acetaminophen (Acetaminophen 500 Mg Tab) 1,000 mg PO ONETIME ONE Stop: 02/28/21 20:32 Last Admin: 02/28/21 20:35 Dose: 1,000 mg Documented by: Acetaminophen (Acetaminophen 325 Mg Tab) 650 mg PO Q4H PRN PRN Reason: Pain (mild 1-3) Hydrocodone Bitart/Acetaminophen (Acetaminophen/Hydrocodone 325-5 Mg Tab) 1 tab PO Q4H PRN PRN Reason: Pain (moderate 4-6) Last Admin: 03/03/21 07:39 Dose: 1 tab Documented by: Amoxicillin/Clavulanate Potassium (Amoxicillin/Clavulanate K 500-125 Mg Tab) 1 tab PO BID [facility] Last Admin: 03/03/21 09:22 Dose: 1 tab Documented by: Bisacodyl (Bisacodyl 5 Mg Tab) 10 mg PO ONETIME ONE Stop: 03/07/21 09:34 Cyanocobalamin (Cyanocobalamin (Vitamin B12) 1,000 Mcg/Ml Sdv) 1,000 mcg IM ONETIME ONE Stop: 03/03/21 10:01 Last Admin: 03/03/21 12:51 Dose: 1,000 mcg Documented by: Dexamethasone (Dexamethasone 4 Mg/Ml Sdv) 4 mg IVPUSH Q24H [facility] Last Admin: 03/01/21 14:53 Dose: Not Given Documented by: Dexamethasone (Dexamethasone 4 Mg/Ml Sdv) 6 mg IVPUSH Q24H [facility] Stop: 03/11/21 14:16 Enoxaparin Sodium (Enoxaparin 40 Mg/0.4 Ml Syringe) 40 mg SUBCUT DAILY [facility] Hydromorphone HCl (Hydromorphone 1 Mg/Ml Syringe) 1 mg IVPUSH ONETIME ONE Stop: 02/28/21 22:43 Last Admin: 02/28/21 23:03 Dose: 1 mg Documented by: Potassium Chloride/Sodium Chloride (Normal Saline With 20 Meq Kcl) 1,000 mls @ 1,000 mls/hr IV ASDIRECTED [facility] Last Admin: 02/28/21 20:27 Dose: 1,000 mls/hr Documented by: Ceftriaxone Sodium 1 gm/ (Sodium Chloride) 50 mls @ 100 mls/hr IV ONETIME ONE Stop: 02/28/21 21:02 Last Admin: 02/28/21 20:45 Dose: 100 mls/hr Documented by: Lactated Ringer's (Ringers, Lactated) 1,000 mls @ 100 mls/hr IV ASDIRECTED [facility] Sodium Chloride (Normal Saline) 1,000 mls @ 100 mls/hr IV ASDIRECTED [facility] Last Admin: 02/28/21 23:02 Dose: 100 mls/hr Documented by: Ceftriaxone Sodium 1 gm/ (Sodium Chloride) 50 mls @ 100 mls/hr IV Q24H [facility] Potassium Chloride/Sodium Chloride (1/2 Ns With 20 Meq Kcl) 1,000 mls @ 75 mls/hr IV ASDIRECTED [facility] Last Admin: 03/02/21 17:09 Dose: 75 mls/hr Documented by: Ibuprofen (Ibuprofen 600 Mg Tab) 600 mg PO ONETIME ONE Stop: 03/07/21 00:21 Last Admin: 03/07/21 00:28 Dose: 600 mg Documented by: Influenza Virus Vaccine (Flu Vacc [id number](65yr Up)/Pf 240 Mcg/0.7 Ml Syringe) 240 mcg IM .ONCE ONE Stop: 03/02/21 09:01 Last Admin: 03/02/21 10:52 Dose: Not Given Documented by: Ketorolac Tromethamine (Ketorolac 30 Mg/Ml Sdv) 15 mg IVPUSH ONETIME ONE Stop: 02/28/21 20:32 Last Admin: 02/28/21 20:36 Dose: 15 mg Documented by: Lorazepam (Lorazepam 0.5 Mg Tab) 0.25 mg PO BID PRN PRN Reason: Anxiety Morphine Sulfate (Morphine 2 Mg/Ml Syringe) 2 mg IVPUSH Q4H PRN PRN Reason: Pain (severe 7-10) Last Admin: 03/04/21 00:51 Dose: 2 mg Documented by: Potassium Chloride (Potassium Chloride 20 Meq Tab.Er) 20 meq PO ONETIME ONE Stop: 02/28/21 20:33 Last Admin: 02/28/21 20:35 Dose: 20 meq Documented by: Potassium Chloride (Potassium Chloride 20 Meq Tab.Er) 20 meq PO ONETIME ONE Stop: 02/28/21 21:37 Last Admin: 02/28/21 22:02 Dose: 20 meq Documented by: Potassium Chloride (Potassium Chloride 20 Meq Tab.Er) 20 meq PO ONETIME ONE Stop: 03/01/21 06:30 Last Admin: 03/01/21 07:37 Dose: 20 meq Documented by: Potassium Chloride (Potassium Chloride 20 Meq Tab.Er) 40 meq PO ONETIME ONE Stop: 03/03/21 09:01 Last Admin: 03/03/21 09:22 Dose: 40 meq Documented by: Trimethoprim/Sulfamethoxazole (Sulfamethoxazole/Trimethoprim 800-160 Mg Tab) 1 tab PO BID [facility] Stop: 03/05/21 21:01 - Exam Quality Assessment: No: Supplemental Oxygen General: Alert, Cooperative, No Acute Distress Lungs: Normal Respiratory Effort GI/Abdominal Exam: Normal Bowel Sounds, Soft, No Distention Extremities: No Pedal Edema Psy/Mental Status: Alert, Normal Affect - Patient Data Result Diagrams: 03/06/21 05:20 03/06/21 05:20 Sepsis Event Note - Evaluation Sepsis Screening Result: No Definite Risk - Focused Exam Vital Signs: Vital Signs Temp Pulse Resp BP Pulse Ox 03/07/21 07:00 35.2 C L 68 18 111/62 98 03/07/21 03:00 36.1 C 78 14 104/58 L 95 03/06/21 22:24 36.3 C 83 14 111/62 97 - Problem List Review Problem List Initiated/Reviewed/Updated: Yes - Plan Plan:: ASSESSMENT AND PLAN- Leukocytosis with concern for possible UTI-urine culture did not grow out any specific bacteria. Antibiotics have been discontinued. Peripheral smear did not show any specific pathology. Recurrent falls-probably related to medications and deconditioning. No falls during the hospital stay. -Review home medications prior to discharge -Would benefit from subacute rehab Vertebral compression fractures secondary to fall-moderate pain that overall seems to be well controlled. -Scheduled acetaminophen -Tramadol for breakthrough pain -Trial of lidocaine patch -Physical therapy Leukocytosis, thrombocytosis, hypokalemia, renal insufficiency and metabolic acidosis-no localizing symptoms. Work-up so far has been unremarkable. Family does report the patient had been taking quite a bit of ibuprofen and this could explain some of her renal findings. Sedimentation rate normal. Peripheral smear did not show any definite evidence for hematologic malignancy. Generalized anxiety-stable without any medications other than the venlafaxine. -Continue home dose of venlafaxine Cognitive deficits-no formal diagnosis of dementia but likely has Alzheimer's dementia with cognitive deficits. Patient is pleasantly confused but able to have a conversation as long as the topics are simple. No behavior issues. -Melatonin at bedtime Maintenance issues- VTE prophylaxis: Baby aspirin, will not be giving enoxaparin even though she is at high risk due to her repeated episodes of falling GI prophylaxis: Not indicated Diet: Regular diet Disposition: Anticipate discharge to subacute rehab after this hospitalization versus possibly assisted living. Family feels she would be best served in a facility and they do not have adequate resources to provide care for her at this time. has injured himself trying to care for her and is now even less able to provide adequate care at home. Physical therapy recommending subacute rehab. Sounds like we will have a subacute rehab bed on Wednesday, 3 days from now. Darvin Stevenson MD
[2021-03-07] MEDS: Melatonin 3 MG Tab PO SCH (20:04)
[2021-03-08] MEDS: traMADol 50 MG Tab PO PRN ×3 (04:33→20:08)
[2021-03-08] MEDS: Magnesium Hydroxide 400 MG/5 ML Susp 30 ML Cup PO PRN (07:49)
[2021-03-08] MEDS: Venlafaxine 75 MG Tab PO SCH ×2 (08:50→20:07)
[2021-03-08] MEDS: Aspirin 81 MG Tab.Chew PO SCH (08:50)
[2021-03-08] MEDS: Acetaminophen 500 MG Tab PO SCH ×3 (08:51→20:09)
[2021-03-08] MEDS: Lidocaine 5% 700 MG Patch TRDERM SCH (08:52)
[2021-03-08] MEDS ORDERED: Bisacodyl 10 MG Supp RECTAL ONE (10:00)
--- NOTE | 2021-03-08 12:38 | PCM.PN ---
- General Info Date of Service: 03/08/21 Subjective Update: No acute events overnight. Pain has been well controlled. She does have some ups and downs with the pain but overall it has been well controlled. No fevers. Strength is steadily improving. Functional status has been improving. No significant behavior issues. Memory seems to be improving each day as well. Appetite has been good. No bowel movement as of yet despite aggressive bowel stimulation. Functional Status: Reports: Pain Controlled, Tolerating Diet - Review of Systems General: Reports: Weakness - Patient Data Vitals - Most Recent: Last Vital Signs Temp 35.6 C L 03/08/21 11:49 Pulse 81 03/08/21 11:49 Resp 16 03/08/21 11:49 BP 105/69 03/08/21 11:49 Pulse Ox 95 03/08/21 11:49 Weight - Most Recent: 58.287 kg I&O - Last 24 Hours: Intake & Output 03/07/21 03/08/21 03/08/21 22:59 06:59 14:59 Intake Total 650 250 200 Balance 650 250 200 Med Orders - Current: Current Medications Acetaminophen (Acetaminophen 500 Mg Tab) 1,000 mg PO TID [facility] Last Admin: 03/08/21 08:51 Dose: 1,000 mg Documented by: Aspirin (Aspirin 81 Mg Tab.Chew) 81 mg PO DAILY [facility] Last Admin: 03/08/21 08:50 Dose: 81 mg Documented by: Lidocaine (Lidocaine 5% 700 Mg Patch) 700 mg TRDERM Q24H [facility] Last Admin: 03/08/21 08:52 Dose: 700 mg Documented by: Magnesium Hydroxide (Magnesium Hydroxide 400 Mg/5 Ml Susp 30 Ml Cup) 30 ml PO BID PRN PRN Reason: Constipation Last Admin: 03/08/21 07:49 Dose: 30 ml Documented by: Melatonin (Melatonin 3 Mg Tab) 9 mg PO BEDTIME [facility] Last Admin: 03/07/21 20:04 Dose: 9 mg Documented by: Miscellaneous Information (Remove Lidocaine Patch) 1 ea TRDERM BEDTIME [facility] Last Admin: 03/07/21 20:02 Dose: Not Given Documented by: Polyethylene Glycol (Polyethylene Glycol 3350 Powder 17 Gm Packet) 17 gm PO BEDTIME PRN PRN Reason: Constipation Last Admin: 03/07/21 08:17 Dose: 17 gm Documented by: Ramelteon (Ramelteon 8 Mg Tab) 8 mg PO BEDTIME [facility] Last Admin: 03/07/21 20:04 Dose: 8 mg Documented by: Tramadol HCl (Tramadol 50 Mg Tab) 50 mg PO Q6H PRN PRN Reason: Pain Last Admin: 03/08/21 04:33 Dose: 50 mg Documented by: Venlafaxine HCl (Venlafaxine 75 Mg Tab) 93.75 mg PO BID [facility] Last Admin: 03/08/21 08:50 Dose: 93.75 mg Documented by: Discontinued Medications Acetaminophen (Acetaminophen 500 Mg Tab) 1,000 mg PO ONETIME ONE Stop: 02/28/21 20:32 Last Admin: 02/28/21 20:35 Dose: 1,000 mg Documented by: Acetaminophen (Acetaminophen 325 Mg Tab) 650 mg PO Q4H PRN PRN Reason: Pain (mild 1-3) Hydrocodone Bitart/Acetaminophen (Acetaminophen/Hydrocodone 325-5 Mg Tab) 1 tab PO Q4H PRN PRN Reason: Pain (moderate 4-6) Last Admin: 03/03/21 07:39 Dose: 1 tab Documented by: Amoxicillin/Clavulanate Potassium (Amoxicillin/Clavulanate K 500-125 Mg Tab) 1 tab PO BID [facility] Last Admin: 03/03/21 09:22 Dose: 1 tab Documented by: Bisacodyl (Bisacodyl 5 Mg Tab) 10 mg PO ONETIME ONE Stop: 03/07/21 09:34 Last Admin: 03/07/21 12:15 Dose: 10 mg Documented by: Bisacodyl (Bisacodyl 10 Mg Supp) 10 mg RECTAL ONETIME ONE Stop: 03/08/21 10:01 Last Admin: 03/08/21 09:52 Dose: 10 mg Documented by: Cyanocobalamin (Cyanocobalamin (Vitamin B12) 1,000 Mcg/Ml Sdv) 1,000 mcg IM ONETIME ONE Stop: 03/03/21 10:01 Last Admin: 03/03/21 12:51 Dose: 1,000 mcg Documented by: Dexamethasone (Dexamethasone 4 Mg/Ml Sdv) 4 mg IVPUSH Q24H [facility] Last Admin: 03/01/21 14:53 Dose: Not Given Documented by: Dexamethasone (Dexamethasone 4 Mg/Ml Sdv) 6 mg IVPUSH Q24H [facility] Stop: 03/11/21 14:16 Enoxaparin Sodium (Enoxaparin 40 Mg/0.4 Ml Syringe) 40 mg SUBCUT DAILY [facility] Hydromorphone HCl (Hydromorphone 1 Mg/Ml Syringe) 1 mg IVPUSH ONETIME ONE Stop: 02/28/21 22:43 Last Admin: 02/28/21 23:03 Dose: 1 mg Documented by: Potassium Chloride/Sodium Chloride (Normal Saline With 20 Meq Kcl) 1,000 mls @ 1,000 mls/hr IV ASDIRECTED [facility] Last Admin: 02/28/21 20:27 Dose: 1,000 mls/hr Documented by: Ceftriaxone Sodium 1 gm/ (Sodium Chloride) 50 mls @ 100 mls/hr IV ONETIME ONE Stop: 02/28/21 21:02 Last Admin: 02/28/21 20:45 Dose: 100 mls/hr Documented by: Lactated Ringer's (Ringers, Lactated) 1,000 mls @ 100 mls/hr IV ASDIRECTED [facility] Sodium Chloride (Normal Saline) 1,000 mls @ 100 mls/hr IV ASDIRECTED [facility] Last Admin: 02/28/21 23:02 Dose: 100 mls/hr Documented by: Ceftriaxone Sodium 1 gm/ (Sodium Chloride) 50 mls @ 100 mls/hr IV Q24H [facility] Potassium Chloride/Sodium Chloride (1/2 Ns With 20 Meq Kcl) 1,000 mls @ 75 mls/hr IV ASDIRECTED [facility] Last Admin: 03/02/21 17:09 Dose: 75 mls/hr Documented by: Ibuprofen (Ibuprofen 600 Mg Tab) 600 mg PO ONETIME ONE Stop: 03/07/21 00:21 Last Admin: 03/07/21 00:28 Dose: 600 mg Documented by: Influenza Virus Vaccine (Flu Vacc [id number](65yr Up)/Pf 240 Mcg/0.7 Ml Syringe) 240 mcg IM .ONCE ONE Stop: 03/02/21 09:01 Last Admin: 03/02/21 10:52 Dose: Not Given Documented by: Ketorolac Tromethamine (Ketorolac 30 Mg/Ml Sdv) 15 mg IVPUSH ONETIME ONE Stop: 02/28/21 20:32 Last Admin: 02/28/21 20:36 Dose: 15 mg Documented by: Lorazepam (Lorazepam 0.5 Mg Tab) 0.25 mg PO BID PRN PRN Reason: Anxiety Morphine Sulfate (Morphine 2 Mg/Ml Syringe) 2 mg IVPUSH Q4H PRN PRN Reason: Pain (severe 7-10) Last Admin: 03/04/21 00:51 Dose: 2 mg Documented by: Potassium Chloride (Potassium Chloride 20 Meq Tab.Er) 20 meq PO ONETIME ONE Stop: 02/28/21 20:33 Last Admin: 02/28/21 20:35 Dose: 20 meq Documented by: Potassium Chloride (Potassium Chloride 20 Meq Tab.Er) 20 meq PO ONETIME ONE Stop: 02/28/21 21:37 Last Admin: 02/28/21 22:02 Dose: 20 meq Documented by: Potassium Chloride (Potassium Chloride 20 Meq Tab.Er) 20 meq PO ONETIME ONE Stop: 03/01/21 06:30 Last Admin: 03/01/21 07:37 Dose: 20 meq Documented by: Potassium Chloride (Potassium Chloride 20 Meq Tab.Er) 40 meq PO ONETIME ONE Stop: 03/03/21 09:01 Last Admin: 03/03/21 09:22 Dose: 40 meq Documented by: Trimethoprim/Sulfamethoxazole (Sulfamethoxazole/Trimethoprim 800-160 Mg Tab) 1 tab PO BID [facility] Stop: 03/05/21 21:01 - Exam Quality Assessment: No: Supplemental Oxygen General: Alert, Cooperative, No Acute Distress Lungs: Normal Respiratory Effort GI/Abdominal Exam: Soft, No Distention Extremities: No Pedal Edema Psy/Mental Status: Alert, Normal Affect - Patient Data Result Diagrams: 03/06/21 05:20 03/06/21 05:20 Sepsis Event Note - Evaluation Sepsis Screening Result: No Definite Risk - Focused Exam Vital Signs: Vital Signs Temp Pulse Resp BP BP Pulse Ox 03/08/21 11:49 35.6 C L 81 16 105/69 95 03/08/21 07:43 35.8 C L 84 16 109/72 97 03/08/21 02:23 35.7 C L 72 18 113/64 98 - Problem List Review Problem List Initiated/Reviewed/Updated: Yes - Plan Plan:: ASSESSMENT AND PLAN- Vertebral compression fractures secondary to fall-moderate pain that overall seems to be well controlled. Functional status improving. -Scheduled acetaminophen -Tramadol for breakthrough pain -lidocaine patch -Physical therapy Leukocytosis with concern for possible UTI-urine culture did not grow out any specific bacteria. Antibiotics have been discontinued. Peripheral smear did not show any specific pathology. Recurrent falls-probably related to medications and deconditioning. No falls during the hospital stay. -Review home medications prior to discharge -Would benefit from subacute rehab Leukocytosis, thrombocytosis, hypokalemia, renal insufficiency and metabolic acidosis-no localizing symptoms. Work-up so far has been unremarkable. Family does report the patient had been taking quite a bit of ibuprofen and this could explain some of her renal findings. Sedimentation rate normal. Peripheral smear did not show any definite evidence for hematologic malignancy. Laboratory studies have all improved after the ibuprofen was discontinued at the time of admission. Generalized anxiety-stable without any medications other than the venlafaxine. -Continue home dose of venlafaxine Cognitive deficits-no formal diagnosis of dementia but likely has Alzheimer's dementia with cognitive deficits. Patient is pleasantly confused but able to have a conversation as long as the topics are simple. No behavior issues. -Melatonin at bedtime Maintenance issues- VTE prophylaxis: Mechanical GI prophylaxis: Not indicated Diet: Regular diet Disposition: Anticipate discharge to subacute rehab after this hospitalization versus possibly assisted living. Family feels she would be best served in a facility and they do not have adequate resources to provide care for her at this time. has injured himself trying to care for her and is now even less able to provide adequate care at home. Physical therapy recommending subacute rehab. Sounds like we will have a subacute rehab bed on Wednesday, 2 days from now. Darvin Stevenson MD
[2021-03-08] MEDS: Melatonin 3 MG Tab PO SCH (20:08)
[2021-03-09] MEDS: traMADol 50 MG Tab PO PRN ×2 (07:06→16:08)
[2021-03-09] MEDS ORDERED: Sodium Phosphate,Monobasic/Sodium Phosphate,Dibasic Enema 133 ML Bottle RECTAL ONE (10:00)
[2021-03-09] MEDS: Venlafaxine 75 MG Tab PO SCH ×2 (10:38→20:44)
[2021-03-09] MEDS: Acetaminophen 500 MG Tab PO SCH ×3 (10:38→20:47)
[2021-03-09] MEDS: Lidocaine 5% 700 MG Patch TRDERM SCH (10:39)
[2021-03-09] MEDS: Aspirin 81 MG Tab.Chew PO SCH (10:39)
--- NOTE | 2021-03-09 11:45 | PCM.PN ---
- General Info Date of Service: 03/09/21 Subjective Update: No acute events overnight. Still no response to bowel stimulation. She does not feel like she has to go despite aggressive bowel stimulation. Strength is stable to improving. Back pain is controlled. No fevers. Functional Status: Reports: Pain Controlled, Tolerating Diet - Patient Data Vitals - Most Recent: Last Vital Signs Temp 35.9 C L 03/09/21 10:08 Pulse 75 03/09/21 10:08 Resp 18 03/09/21 10:08 BP 127/83 03/09/21 10:08 Pulse Ox 97 03/09/21 10:08 Weight - Most Recent: 58.287 kg I&O - Last 24 Hours: Intake & Output 03/08/21 03/09/21 03/09/21 22:59 06:59 14:59 Intake Total 600 250 Balance 600 250 Med Orders - Current: Current Medications Acetaminophen (Acetaminophen 500 Mg Tab) 1,000 mg PO TID [facility] Last Admin: 03/09/21 10:38 Dose: 1,000 mg Documented by: Aspirin (Aspirin 81 Mg Tab.Chew) 81 mg PO DAILY [facility] Last Admin: 03/09/21 10:39 Dose: 81 mg Documented by: Lidocaine (Lidocaine 5% 700 Mg Patch) 700 mg TRDERM Q24H [facility] Last Admin: 03/09/21 10:39 Dose: 700 mg Documented by: Magnesium Hydroxide (Magnesium Hydroxide 400 Mg/5 Ml Susp 30 Ml Cup) 30 ml PO BID PRN PRN Reason: Constipation Last Admin: 03/08/21 07:49 Dose: 30 ml Documented by: Melatonin (Melatonin 3 Mg Tab) 9 mg PO BEDTIME [facility] Last Admin: 03/08/21 20:08 Dose: 9 mg Documented by: Miscellaneous Information (Remove Lidocaine Patch) 1 ea TRDERM BEDTIME [facility] Last Admin: 03/08/21 20:09 Dose: Not Given Documented by: Polyethylene Glycol (Polyethylene Glycol 3350 Powder 17 Gm Packet) 17 gm PO BEDTIME PRN PRN Reason: Constipation Last Admin: 03/07/21 08:17 Dose: 17 gm Documented by: Ramelteon (Ramelteon 8 Mg Tab) 8 mg PO BEDTIME [facility] Last Admin: 03/08/21 20:09 Dose: 8 mg Documented by: Tramadol HCl (Tramadol 50 Mg Tab) 50 mg PO Q6H PRN PRN Reason: Pain Last Admin: 03/09/21 07:06 Dose: 50 mg Documented by: Venlafaxine HCl (Venlafaxine 75 Mg Tab) 93.75 mg PO BID [facility] Last Admin: 03/09/21 10:38 Dose: 93.75 mg Documented by: Discontinued Medications Acetaminophen (Acetaminophen 500 Mg Tab) 1,000 mg PO ONETIME ONE Stop: 02/28/21 20:32 Last Admin: 02/28/21 20:35 Dose: 1,000 mg Documented by: Acetaminophen (Acetaminophen 325 Mg Tab) 650 mg PO Q4H PRN PRN Reason: Pain (mild 1-3) Hydrocodone Bitart/Acetaminophen (Acetaminophen/Hydrocodone 325-5 Mg Tab) 1 tab PO Q4H PRN PRN Reason: Pain (moderate 4-6) Last Admin: 03/03/21 07:39 Dose: 1 tab Documented by: Amoxicillin/Clavulanate Potassium (Amoxicillin/Clavulanate K 500-125 Mg Tab) 1 tab PO BID [facility] Last Admin: 03/03/21 09:22 Dose: 1 tab Documented by: Bisacodyl (Bisacodyl 5 Mg Tab) 10 mg PO ONETIME ONE Stop: 03/07/21 09:34 Last Admin: 03/07/21 12:15 Dose: 10 mg Documented by: Bisacodyl (Bisacodyl 10 Mg Supp) 10 mg RECTAL ONETIME ONE Stop: 03/08/21 10:01 Last Admin: 03/08/21 09:52 Dose: 10 mg Documented by: Cyanocobalamin (Cyanocobalamin (Vitamin B12) 1,000 Mcg/Ml Sdv) 1,000 mcg IM ONETIME ONE Stop: 03/03/21 10:01 Last Admin: 03/03/21 12:51 Dose: 1,000 mcg Documented by: Dexamethasone (Dexamethasone 4 Mg/Ml Sdv) 4 mg IVPUSH Q24H [facility] Last Admin: 03/01/21 14:53 Dose: Not Given Documented by: Dexamethasone (Dexamethasone 4 Mg/Ml Sdv) 6 mg IVPUSH Q24H [facility] Stop: 03/11/21 14:16 Enoxaparin Sodium (Enoxaparin 40 Mg/0.4 Ml Syringe) 40 mg SUBCUT DAILY [facility] Hydromorphone HCl (Hydromorphone 1 Mg/Ml Syringe) 1 mg IVPUSH ONETIME ONE Stop: 02/28/21 22:43 Last Admin: 02/28/21 23:03 Dose: 1 mg Documented by: Potassium Chloride/Sodium Chloride (Normal Saline With 20 Meq Kcl) 1,000 mls @ 1,000 mls/hr IV ASDIRECTED [place] Last Admin: 02/28/21 20:27 Dose: 1,000 mls/hr Documented by: Ceftriaxone Sodium 1 gm/ (Sodium Chloride) 50 mls @ 100 mls/hr IV ONETIME ONE Stop: 02/28/21 21:02 Last Admin: 02/28/21 20:45 Dose: 100 mls/hr Documented by: Lactated Ringer's (Ringers, Lactated) 1,000 mls @ 100 mls/hr IV ASDIRECTED [place] Sodium Chloride (Normal Saline) 1,000 mls @ 100 mls/hr IV ASDIRECTED [place] Last Admin: 02/28/21 23:02 Dose: 100 mls/hr Documented by: Ceftriaxone Sodium 1 gm/ (Sodium Chloride) 50 mls @ 100 mls/hr IV Q24H [place] Potassium Chloride/Sodium Chloride (1/2 Ns With 20 Meq Kcl) 1,000 mls @ 75 mls/hr IV ASDIRECTED [facility] Last Admin: 03/02/21 17:09 Dose: 75 mls/hr Documented by: Ibuprofen (Ibuprofen 600 Mg Tab) 600 mg PO ONETIME ONE Stop: 03/07/21 00:21 Last Admin: 03/07/21 00:28 Dose: 600 mg Documented by: Influenza Virus Vaccine (Flu Vacc [id number](65yr Up)/Pf 240 Mcg/0.7 Ml Syringe) 240 mcg IM .ONCE ONE Stop: 03/02/21 09:01 Last Admin: 03/02/21 10:52 Dose: Not Given Documented by: Ketorolac Tromethamine (Ketorolac 30 Mg/Ml Sdv) 15 mg IVPUSH ONETIME ONE Stop: 02/28/21 20:32 Last Admin: 02/28/21 20:36 Dose: 15 mg Documented by: Lorazepam (Lorazepam 0.5 Mg Tab) 0.25 mg PO BID PRN PRN Reason: Anxiety Morphine Sulfate (Morphine 2 Mg/Ml Syringe) 2 mg IVPUSH Q4H PRN PRN Reason: Pain (severe 7-10) Last Admin: 03/04/21 00:51 Dose: 2 mg Documented by: Potassium Chloride (Potassium Chloride 20 Meq Tab.Er) 20 meq PO ONETIME ONE Stop: 02/28/21 20:33 Last Admin: 02/28/21 20:35 Dose: 20 meq Documented by: Potassium Chloride (Potassium Chloride 20 Meq Tab.Er) 20 meq PO ONETIME ONE Stop: 02/28/21 21:37 Last Admin: 02/28/21 22:02 Dose: 20 meq Documented by: Potassium Chloride (Potassium Chloride 20 Meq Tab.Er) 20 meq PO ONETIME ONE Stop: 03/01/21 06:30 Last Admin: 03/01/21 07:37 Dose: 20 meq Documented by: Potassium Chloride (Potassium Chloride 20 Meq Tab.Er) 40 meq PO ONETIME ONE Stop: 03/03/21 09:01 Last Admin: 03/03/21 09:22 Dose: 40 meq Documented by: Sodium Biphosphate/Sodium Phosphate (Sodium Phosphate,Monobasic/Sodium Phosphate,Dibasic Enema 133 Ml Bottle) 133 ml RECTAL ONETIME ONE Stop: 03/09/21 10:01 Last Admin: 03/09/21 10:39 Dose: 1 enema Documented by: Trimethoprim/Sulfamethoxazole (Sulfamethoxazole/Trimethoprim 800-160 Mg Tab) 1 tab PO BID [place] Stop: 03/05/21 21:01 - Exam Quality Assessment: No: Supplemental Oxygen General: Alert, Oriented, Cooperative, No Acute Distress Lungs: Normal Respiratory Effort GI/Abdominal Exam: Soft, No Distention Extremities: No Pedal Edema Psy/Mental Status: Alert, Normal Affect - Patient Data Result Diagrams: 03/06/21 05:20 03/06/21 05:20 Sepsis Event Note - Evaluation Sepsis Screening Result: No Definite Risk - Focused Exam Vital Signs: Vital Signs Temp Pulse Resp BP BP Pulse Ox 03/09/21 10:08 35.9 C L 75 18 127/83 97 03/09/21 07:12 35.7 C L 78 16 93/70 97 03/09/21 03:00 36.0 C L 74 18 128/68 97 - Problem List Review Problem List Initiated/Reviewed/Updated: Yes - My Orders Last 24 Hours: My Active Orders 03/08/21 15:29 Antiembolic Devices [RC] .Routine SCD [Sequential Compression Device] [OM.PC] Routine 03/09/21 10:28 Peripheral IV Discontinue [OM.PC] Routine - Plan Plan:: ASSESSMENT AND PLAN- Vertebral compression fractures secondary to fall-moderate pain that overall seems to be well controlled. Functional status improving. -Scheduled acetaminophen -Tramadol for breakthrough pain -lidocaine patch -Physical therapy Leukocytosis with concern for possible UTI-urine culture did not grow out any specific bacteria. Antibiotics have been discontinued. Recurrent falls-probably related to medications and deconditioning. No falls during the hospital stay. -Review home medications prior to discharge -Would benefit from subacute rehab Leukocytosis, thrombocytosis, hypokalemia, renal insufficiency and metabolic acidosis-no localizing symptoms. Work-up so far has been unremarkable. Family does report the patient had been taking quite a bit of ibuprofen and this could explain some of her renal findings. Sedimentation rate normal. Peripheral smear did not show any definite evidence for hematologic malignancy. Laboratory studies have all improved after the ibuprofen was discontinued at the time of admission. Generalized anxiety-stable without any medications other than the venlafaxine. -Continue home dose of venlafaxine Cognitive deficits-no formal diagnosis of dementia but likely has Alzheimer's dementia with cognitive deficits. Patient is pleasantly confused but able to have a conversation as long as the topics are simple. No behavior issues. -Melatonin at bedtime Maintenance issues- VTE prophylaxis: Mechanical GI prophylaxis: Not indicated Diet: Regular diet Disposition: Anticipate discharge to subacute rehab after this hospitalization versus possibly assisted living. Family feels she would be best served in a facility and they do not have adequate resources to provide care for her at this time. has injured himself trying to care for her and is now even less able to provide adequate care at home. Physical therapy recommending subacute rehab. She will have a subacute rehab bed tomorrow. Darvin Stevenson MD
--- NOTE | 2021-03-09 16:04 | PCM.DCSUM1 ---
Discharge Summary - Hospital Course Brief History: 76-year-old female with history of generalized anxiety, recent compression fracture who presented with progressive weakness and increasing back pain. She was admitted for management of generalized weakness and back pain. Diagnosis: Stroke: No - Discharge Data Discharge Date: 03/09/21 Discharge Disposition: DC/Tfer to SNF 03 Condition: Good - Referral to Home Health Primary Care Physician: Raoul Gann MD - Discharge Diagnosis/Problem(s) (1) Thoracic compression fracture SNOMED Code(s): 641905742 ICD Code: S22.000A - WEDGE COMPRESSION FRACTURE OF UNSP THORACIC VERTEBRA, INIT Status: Acute Current Visit: Yes Qualifiers: Encounter type: initial encounter Thoracic vertebra fracture level: unspecified thoracic vertebra Qualified Code(s): S22.000A - Wedge compression fracture of unspecified thoracic vertebra, initial encounter for closed fracture (2) Weakness SNOMED Code(s): 43124306 ICD Code: R53.1 - WEAKNESS Status: Acute Current Visit: Yes (3) Recurrent falls while walking SNOMED Code(s): 150396272, 838649357 ICD Code: R29.6 - REPEATED FALLS Status: Chronic Priority: High Current Visit: No (4) Anxiety SNOMED Code(s): 58761412 ICD Code: F41.9 - ANXIETY DISORDER, UNSPECIFIED Status: Chronic Current Visit: No (5) Urinary tract infection SNOMED Code(s): 14321690 ICD Code: N39.0 - URINARY TRACT INFECTION, SITE NOT SPECIFIED Status: Ruled-out Priority: Medium Current Visit: Yes Qualifiers: Urinary tract infection type: acute cystitis Hematuria presence: without h ematuria Qualified Code(s): N30.00 - Acute cystitis without hematuria (6) Hypokalemia SNOMED Code(s): 26008879 ICD Code: E87.6 - HYPOKALEMIA Status: Acute Current Visit: Yes (7) Cognitive decline SNOMED Code(s): 355506669 ICD Code: R41.89 - OTH SYMPTOMS AND SIGNS W COGNITIVE FUNCTIONS AND AWARENESS Status: Acute Current Visit: Yes - Patient Summary/Data Consults: Consultations 03/01/21 14:04 Consult to Occupational Therapy [OT Evaluation and Treatment] [CONS] Routine Please Evaluate and Treat. OT Reason for Consult: Discharge Planning Special Instructions: Had fall, has vertebral compression fractures This query below is only for informational purposes and is not editable. Admission Diagnosis/Problem: Weakness 03/05/21 16:47 Consult to Physical Therapy [PT Evaluation and Treatment] [CONS] BID Please Evaluate and Treat. PT Reason for Consult: Strengthening Special Instructions: To be seen for therapy BID This query below is only for informational purposes and is not editable. Admission Diagnosis/Problem: Weakness Hospital Course: Harjit presented to the emergency room with progressive weakness, back pain and some confusion. Work-up in the emergency room was initially concerning for a urinary tract infection. She also had mild hypokalemia and a mild metabolic acidosis along with a mild leukocytosis. She was too weak to be safe at home so she was admitted for observation and further management. She was started on an tibiotics for the suspected urinary tract infection. She received some IV fluids and potassium supplementation. She did work with physical and Occupational Therapy. The urine culture came back growing mixed regine with no specific bacteria and antibiotics were discontinued. With her multiple laboratory abnormalities including the renal changes with mild renal insufficiency and persistent leukocytosis we did obtain additional lab studies including thyroid, sedimentation rate, CRP as well as a peripheral smear. All of these came back normal. There has been no concern for malignancy or signi ficant renal abnormality. Her renal function has improved throughout the course of the hospital stay. I suspect that all of these metabolic changes we saw were related to her use of high-dose ibuprofen. We did get a head CT that did not show any significant abnormality. The patient has made slow but steady progress throughout the course of the hospital stay. Ental status seems to be at baseline. I suspect a lot of her difficulties with the falls were related to her self administering medications at home. She was on a variety of different things for her anxiety including hydroxyzine and lorazepam. I would encourage her to discontinue these medications. We did not continue them during the hospital stay and did not have significant difficulty with anxiety. Sleep has been managed with ramelteon and melatonin and she has done very well. She is making strides with physical therapy but would benefit from some ongoing therapy with both physical and occupational therapy involved. I would anticipate only a short rehab stay will be necessary. There have been no behavior issues. She is stable and safe for discharge. She is in agreement with the plan and family is on board as well. - Patient Instructions Diet: Regular Diet as Tolerated Activity: As Tolerated Showering/Bathing: May Shower Notify Provider of: Fever, Increased Pain Other/Special Instructions: 1. You were in the hospital for management of generalized weakness as well as back pain related to thoracic compression fractures. Your back pain has been well controlled using a combination of scheduled acetaminophen, lidocaine patches and as needed tramadol. You would benefit from ongoing management with physical and occupational therapy as requested below. There was an extensive work-up looking for causes for the weakness including infectious work-up as well as metabolic work-up. All of these came back unremarkable. I suspect that improper use of your home medications contributed significantly to your balance issues and falls. 2. Your discharge medications have drastically changed from your home medication list. Please review these carefully. Additional changes will need to go through your primary care, for example if you need additional medications for anxiety. 3. Referral to PT and OT -they will help provide therapeutic exercises to improve strength and endurance. 4. Code status - FULL CODE - Discharge Plan *PRESCRIPTION DRUG MONITORING PROGRAM REVIEWED*: Not Applicable *COPY OF PRESCRIPTION DRUG MONITORING REPORT IN PATIENT ERUM: Not Applicable Prescriptions/Med Rec: Aspirin 81 mg PO DAILY #30 tab.chew Lidocaine 5% [Lidoderm 5%] 700 mg TRDERM Q24H #30 patch Melatonin 10 mg PO BEDTIME #30 tablet Acetaminophen [Tylenol Extra Strength] 1,000 mg PO TID #200 tablet traMADol [Ultram] 50 mg PO Q6H PRN #40 tablet PRN Reason: Pain Home Medications: Home Meds Cyanocobalamin (Vitamin B-12) [Vitamin B-12] 1,000 mcg IM ASDIRECTED 11/20/13 [History] Cannabidiol (Cbd) Extract [CBD Oil] 1 appful PO BEDTIME 02/23/20 [History] Ramelteon 8 mg PO DAILY 08/25/20 [History] Venlafaxine [Effexor] 100 mg PO BID 03/01/21 [History] Acetaminophen [Tylenol Extra Strength] 1,000 mg PO TID #200 tablet 03/09/21 [Rx] Aspirin 81 mg PO DAILY #30 tab.chew 03/09/21 [Rx] Lidocaine 5% [Lidoderm 5%] 700 mg TRDERM Q24H #30 patch 03/09/21 [Rx] Melatonin 10 mg PO BEDTIME #30 tablet 03/09/21 [Rx] traMADol [Ultram] 50 mg PO Q6H PRN #40 tablet 03/09/21 [Rx] Oxygen Therapy Mode: Room Air Patient Handouts: Fall Prevention in the Home, Adult, [id number], Dehydration, Elderly, [id number] Referrals: Raoul Gann MD [Primary Care Provider] - (1-2 weeks - f/u hospital stay for back pain, weakness) - Discharge Summary/Plan Comment DC Time >30 min.: Yes Total # of Minutes for Discharge Time: 45-new [place] discharge - Patient Data Vitals - Most Recent: Last Vital Signs Temp 35.2 C L 03/09/21 14:30 Pulse 73 03/09/21 14:30 Resp 18 03/09/21 14:30 BP 102/64 03/09/21 14:30 Pulse Ox 94 L 03/09/21 14:30 Weight - Most Recent: 58.287 kg I&O - Last 24 hours: Intake & Output 03/09/21 03/09/21 03/09/21 06:59 14:59 22:59 Intake Total 250 Balance 250 Med Orders - Current: Current Medications Acetaminophen (Acetaminophen 500 Mg Tab) 1,000 mg PO TID [facility] Last Admin: 03/09/21 10:38 Dose: 1,000 mg Documented by: Aspirin (Aspirin 81 Mg Tab.Chew) 81 mg PO DAILY [facility] Last Admin: 03/09/21 10:39 Dose: 81 mg Documented by: Lidocaine (Lidocaine 5% 700 Mg Patch) 700 mg TRDERM Q24H [facility] Last Admin: 03/09/21 10:39 Dose: 700 mg Documented by: Magnesium Hydroxide (Magnesium Hydroxide 400 Mg/5 Ml Susp 30 Ml Cup) 30 ml PO BID PRN PRN Reason: Constipation Last Admin: 03/08/21 07:49 Dose: 30 ml Documented by: Melatonin (Melatonin 3 Mg Tab) 9 mg PO BEDTIME [facility] Last Admin: 03/08/21 20:08 Dose: 9 mg Documented by: Miscellaneous Information (Remove Lidocaine Patch) 1 ea TRDERM BEDTIME [facility] Last Admin: 03/08/21 20:09 Dose: Not Given Documented by: Polyethylene Glycol (Polyethylene Glycol 3350 Powder 17 Gm Packet) 17 gm PO BEDTIME PRN PRN Reason: Constipation Last Admin: 03/07/21 08:17 Dose: 17 gm Documented by: Ramelteon (Ramelteon 8 Mg Tab) 8 mg PO BEDTIME [facility] Last Admin: 03/08/21 20:09 Dose: 8 mg Documented by: Tramadol HCl (Tramadol 50 Mg Tab) 50 mg PO Q6H PRN PRN Reason: Pain Last Admin: 03/09/21 07:06 Dose: 50 mg Documented by: Venlafaxine HCl (Venlafaxine 75 Mg Tab) 93.75 mg PO BID [facility] Last Admin: 03/09/21 10:38 Dose: 93.75 mg Documented by: Discontinued Medications Acetaminophen (Acetaminophen 500 Mg Tab) 1,000 mg PO ONETIME ONE Stop: 02/28/21 20:32 Last Admin: 02/28/21 20:35 Dose: 1,000 mg Documented by: Acetaminophen (Acetaminophen 325 Mg Tab) 650 mg PO Q4H PRN PRN Reason: Pain (mild 1-3) Hydrocodone Bitart/Acetaminophen (Acetaminophen/Hydrocodone 325-5 Mg Tab) 1 tab PO Q4H PRN PRN Reason: Pain (moderate 4-6) Last Admin: 03/03/21 07:39 Dose: 1 tab Documented by: Amoxicillin/Clavulanate Potassium (Amoxicillin/Clavulanate K 500-125 Mg Tab) 1 tab PO BID [facility] Last Admin: 03/03/21 09:22 Dose: 1 tab Documented by: Bisacodyl (Bisacodyl 5 Mg Tab) 10 mg PO ONETIME ONE Stop: 03/07/21 09:34 Last Admin: 03/07/21 12:15 Dose: 10 mg Documented by: Bisacodyl (Bisacodyl 10 Mg Supp) 10 mg RECTAL ONETIME ONE Stop: 03/08/21 10:01 Last Admin: 03/08/21 09:52 Dose: 10 mg Documented by: Cyanocobalamin (Cyanocobalamin (Vitamin B12) 1,000 Mcg/Ml Sdv) 1,000 mcg IM O NETIME ONE Stop: 03/03/21 10:01 Last Admin: 03/03/21 12:51 Dose: 1,000 mcg Documented by: Dexamethasone (Dexamethasone 4 Mg/Ml Sdv) 4 mg IVPUSH Q24H [facility] Last Admin: 03/01/21 14:53 Dose: Not Given Documented by: Dexamethasone (Dexamethasone 4 Mg/Ml Sdv) 6 mg IVPUSH Q24H [facility] Stop: 03/11/21 14:16 Enoxaparin Sodium (Enoxaparin 40 Mg/0.4 Ml Syringe) 40 mg SUBCUT DAILY [facility] Hydromorphone HCl (Hydromorphone 1 Mg/Ml Syringe) 1 mg IVPUSH ONETIME ONE Stop: 02/28/21 22:43 Last Admin: 02/28/21 23:03 Dose: 1 mg Documented by: Potassium Chloride/Sodium Chloride (Normal Saline With 20 Meq Kcl) 1,000 mls @ 1,000 mls/hr IV ASDIRECTED [facility] Last Admin: 02/28/21 20:27 Dose: 1,000 mls/hr Documented by: Ceftriaxone Sodium 1 gm/ (Sodium Chloride) 50 mls @ 100 mls/hr IV ONETIME ONE Stop: 02/28/21 21:02 Last Admin: 02/28/21 20:45 Dose: 100 mls/hr Documented by: Lactated Ringer's (Ringers, Lactated) 1,000 mls @ 100 mls/hr IV ASDIRECTED [facility] Sodium Chloride (Normal Saline) 1,000 mls @ 100 mls/hr IV ASDIRECTED [facility] Last Admin: 02/28/21 23:02 Dose: 100 mls/hr Documented by: Ceftriaxone Sodium 1 gm/ (Sodium Chloride) 50 mls @ 100 mls/hr IV Q24H [facility] Potassium Chloride/Sodium Chloride (1/2 Ns With 20 Meq Kcl) 1,000 mls @ 75 mls/hr IV ASDIRECTED [facility] Last Admin: 03/02/21 17:09 Dose: 75 mls/hr Documented by: Ibuprofen (Ibuprofen 600 Mg Tab) 600 mg PO ONETIME ONE Stop: 03/07/21 00:21 Last Admin: 03/07/21 00:28 Dose: 600 mg Documented by: Influenza Virus Vaccine (Flu Vacc [id number](65yr Up)/Pf 240 Mcg/0.7 Ml Syringe) 240 mcg IM .ONCE ONE Stop: 03/02/21 09:01 Last Admin: 03/02/21 10:52 Dose: Not Given Documented by: Ketorolac Tromethamine (Ketorolac 30 Mg/Ml Sdv) 15 mg IVPUSH ONETIME ONE Stop: 02/28/21 20:32 Last Admin: 02/28/21 20:36 Dose: 15 mg Documented by: Lorazepam (Lorazepam 0.5 Mg Tab) 0.25 mg PO BID PRN PRN Reason: Anxiety Morphine Sulfate (Morphine 2 Mg/Ml Syringe) 2 mg IVPUSH Q4H PRN PRN Reason: Pain (severe 7-10) Last Admin: 03/04/21 00:51 Dose: 2 mg Documented by: Potassium Chloride (Potassium Chloride 20 Meq Tab.Er) 20 meq PO ONETIME ONE Stop: 02/28/21 20:33 Last Admin: 02/28/21 20:35 Dose: 20 meq Documented by: Potassium Chloride (Potassium Chloride 20 Meq Tab.Er) 20 meq PO ONETIME ONE Stop: 02/28/21 21:37 Last Admin: 02/28/21 22:02 Dose: 20 meq Documented by: Potassium Chloride (Potassium Chloride 20 Meq Tab.Er) 20 meq PO ONETIME ONE Stop: 03/01/21 06:30 Last Admin: 03/01/21 07:37 Dose: 20 meq Documented by: Potassium Chloride (Potassium Chloride 20 Meq Tab.Er) 40 meq PO ONETIME ONE Stop: 03/03/21 09:01 Last Admin: 03/03/21 09:22 Dose: 40 meq Documented by: Sodium Biphosphate/Sodium Phosphate (Sodium Phosphate,Monobasic/Sodium Phosphate,Dibasic Enema 133 Ml Bottle) 133 ml RECTAL ONETIME ONE Stop: 03/09/21 10:01 Last Admin: 03/09/21 10:39 Dose: 1 enema Documented by: Trimethoprim/Sulfamethoxazole (Sulfamethoxazole/Trimethoprim 800-160 Mg Tab) 1 tab PO BID [place] Stop: 03/05/21 21:01
[2021-03-09] MEDS ORDERED: Calcium Carbonate 500 MG Tab.Chew PO PRN (20:38)
[2021-03-09] MEDS: Melatonin 3 MG Tab PO SCH (20:45)
[2021-03-10 07:35] VITALS: BP 133/74; PULSE 80
[2021-03-10] MEDS: Lidocaine 5% 700 MG Patch TRDERM SCH (10:02)
[2021-03-10] MEDS: Venlafaxine 75 MG Tab PO SCH (10:04)
[2021-03-10] MEDS: Aspirin 81 MG Tab.Chew PO SCH (10:04)
[2021-03-10] MEDS: Acetaminophen 500 MG Tab PO SCH (10:05)
[2021-03-10] MEDS: traMADol 50 MG Tab PO PRN (12:27)
== END 2021-03-10 12:55 ==
LOC: JP.ED 16:54 → JP.MS 03-01 12:47
PROVIDERS: ADMIT Internal Medicine; ATTEND Internal Medicine
DX: S22.000A Wedge compression fracture of unspecified thoracic vertebra, initial encounter for closed fracture (principal); R53.1 Weakness; D72.829 Elevated white blood cell count, unspecified; R29.6 Repeated falls; F41.9 Anxiety disorder, unspecified; N30.00 Acute cystitis without hematuria; E87.6 Hypokalemia; R41.89 Other symptoms and signs involving cognitive functions and awareness; Z79.899 Other long term (current) drug therapy; Z88.8 Allergy status to other drugs, medicaments and biological substances; Z88.2 Allergy status to sulfonamides; Z88.5 Allergy status to narcotic agent; Z98.890 Other specified postprocedural states; Z20.822 Contact with and (suspected) exposure to COVID-19
CPT/HCPCS: 36415; 70450; 71046; 74018; 80048; 80053; 81001; 83605; 83735; 83880; 84443; 84484; 85025; 85027; 85060; 85651; 86140; 87040; 87086; 96365; 96366; 96368; 96375; 97110; 97161; 97165; 97530; 97535; 99285; A9270; G0378; J0696; J1170; J1885; J2270; J3420; J3480; J7030; U0002

== ENCOUNTER 2021-05-15 17:43 | Inpatient (IN) | payer MEDICARE, OTHER ==
[2021-05-15] MEDS ORDERED: Sodium Chloride 0.9% 1,000 ML IV SCH (18:30)
[2021-05-15 19:12] LABS: CORONAVIRUS COVID-19 NAA POSITIVE (NEGATIVE)
[2021-05-15] MEDS ORDERED: Cefepime 2 GM in Sodium Chloride 0.9% 50 ML IV ONE (19:29)
[2021-05-15] MEDS ORDERED: Sodium Chloride 0.9% 50 ML ONE (20:09)
[2021-05-15] MEDS ORDERED: Bisacodyl 5 MG Tab PO PRN (21:32)
[2021-05-15] MEDS ORDERED: Acetaminophen 325 MG Tab PO PRN (21:32)
[2021-05-15] MEDS ORDERED: VENLAFAXINE 100 MG PO SCH (21:32)
[2021-05-15] MEDS ORDERED: MELATONIN 10 MG PO SCH (21:32)
[2021-05-15] MEDS: Melatonin 3 MG Tab PO SCH (23:00)
[2021-05-15] MEDS: Enoxaparin 40 MG/0.4 ML Syringe SUBCUT SCH (23:01)
[2021-05-15] MEDS: Venlafaxine 75 MG Tab PO SCH (23:44)
[2021-05-16] MEDS: Lidocaine 5% 700 MG Patch TRDERM SCH (08:18)
[2021-05-16] MEDS: Venlafaxine 75 MG Tab PO SCH ×2 (08:18→20:46)
[2021-05-16] MEDS ORDERED: Magnesium Sulfate/Water 2 GM in Premix Bag 1 BAG IV SCH (08:30)
[2021-05-16] MEDS: Potassium Chloride 20 MEQ Tab.ER PO SCH ×2 (10:22→20:46)
[2021-05-16] MEDS: Cefepime 1 GM in Sodium Chloride 0.9% 50 ML IV SCH ×2 (10:23→20:51)
[2021-05-16] MEDS ORDERED: Magnesium Sulfate/Water 2 GM in Premix Bag 1 BAG IV ONE (18:00)
[2021-05-16] MEDS: Melatonin 3 MG Tab PO SCH (20:46)
[2021-05-16] MEDS: Enoxaparin 40 MG/0.4 ML Syringe SUBCUT SCH (20:46)
[2021-05-17] MEDS ORDERED: Lidocaine 2% Viscous Solution 15 ML UD MUCMEM PRN (09:31)
[2021-05-17] MEDS: Venlafaxine 75 MG Tab PO SCH ×2 (09:51→20:11)
[2021-05-17] MEDS: Levofloxacin/Dextrose 5%-Water 750 MG in Premix Bag 1 BAG IV SCH (09:51)
[2021-05-17] MEDS: Potassium Chloride 20 MEQ Tab.ER PO SCH (09:51)
[2021-05-17] MEDS ORDERED: guaiFENesin/Dextromethorphan 100-10 MG/5 ML Soln 10 ML Cup PO PRN (11:36)
[2021-05-17] MEDS ORDERED: REMDESIVIR 200 MG in Sodium Chloride 0.9% 250 ML IV ONE (12:00)
[2021-05-17] MEDS: Lidocaine 5% 700 MG Patch TRDERM SCH (12:28)
[2021-05-17] MEDS: Cefepime 1 GM in Sodium Chloride 0.9% 50 ML IV SCH ×2 (12:28→20:18)
[2021-05-17] MEDS: Dexamethasone 4 MG/ML SDV IVPUSH SCH (12:39)
[2021-05-17] MEDS: Acetaminophen 325 MG Tab PO PRN ×2 (12:41→22:42)
[2021-05-17] MEDS: LORazepam 0.5 MG Tab PO PRN ×3 (14:42→22:42)
[2021-05-17] MEDS: Melatonin 3 MG Tab PO SCH (20:11)
[2021-05-17] MEDS: Enoxaparin 40 MG/0.4 ML Syringe SUBCUT SCH (20:11)
[2021-05-18] MEDS: Venlafaxine 75 MG Tab PO SCH ×2 (08:52→20:25)
[2021-05-18] MEDS: Cefepime 1 GM in Sodium Chloride 0.9% 50 ML IV SCH (08:52)
[2021-05-18] MEDS: Levofloxacin/Dextrose 5%-Water 750 MG in Premix Bag 1 BAG IV SCH (09:52)
[2021-05-18] MEDS: REMDESIVIR 100 MG in Sodium Chloride 0.9% 100 ML IV SCH (11:34)
[2021-05-18] MEDS: Lidocaine 5% 700 MG Patch TRDERM SCH (11:34)
[2021-05-18] MEDS: Dexamethasone 4 MG/ML SDV IVPUSH SCH (13:01)
[2021-05-18] MEDS: LORazepam 0.5 MG Tab PO PRN ×2 (18:36→23:13)
[2021-05-18] MEDS: Melatonin 3 MG Tab PO SCH (20:25)
[2021-05-18] MEDS: Enoxaparin 40 MG/0.4 ML Syringe SUBCUT SCH (20:25)
[2021-05-18] MEDS: oxyCODONE 5 MG Tab PO PRN (21:41)
[2021-05-19] MEDS: CANNABIDIOL PO SCH ×2 (06:21→06:22)
[2021-05-19] MEDS: Venlafaxine 75 MG Tab PO SCH ×3 (08:16→21:28)
[2021-05-19] MEDS: Levofloxacin 250 MG Tab PO SCH (08:16)
[2021-05-19] MEDS: Levofloxacin 500 MG Tab PO SCH (08:16)
[2021-05-19] MEDS: Lidocaine 5% 700 MG Patch TRDERM SCH (08:20)
[2021-05-19] MEDS: Dexamethasone 4 MG/ML SDV IVPUSH SCH (11:39)
[2021-05-19] MEDS: REMDESIVIR 100 MG in Sodium Chloride 0.9% 100 ML IV SCH (11:50)
[2021-05-19] MEDS: traMADol 50 MG Tab PO PRN (16:53)
[2021-05-19] MEDS: Acetaminophen 325 MG Tab PO PRN (16:54)
[2021-05-19] MEDS: LORazepam 0.5 MG Tab PO PRN (19:41)
[2021-05-19] MEDS: Docusate Sodium 100 MG Cap PO PRN (19:41)
[2021-05-19] MEDS: Magnesium Hydroxide 400 MG/5 ML Susp 30 ML Cup PO PRN (19:41)
[2021-05-19] MEDS: Enoxaparin 40 MG/0.4 ML Syringe SUBCUT SCH (21:28)
[2021-05-19] MEDS: Melatonin 3 MG Tab PO SCH (21:28)
[2021-05-20] MEDS: Acetaminophen 325 MG Tab PO PRN ×4 (05:26→19:46)
[2021-05-20] MEDS ORDERED: Potassium Chloride 20 MEQ Tab.ER PO ONE ×2 (08:25→11:00)
[2021-05-20] MEDS: LORazepam 0.5 MG Tab PO PRN ×2 (09:38→19:46)
[2021-05-20] MEDS: Levofloxacin 500 MG Tab PO SCH (10:02)
[2021-05-20] MEDS: Levofloxacin 250 MG Tab PO SCH (10:03)
[2021-05-20] MEDS: Venlafaxine 75 MG Tab PO SCH ×2 (10:03→20:21)
[2021-05-20] MEDS: Lidocaine 5% 700 MG Patch TRDERM SCH (10:03)
[2021-05-20] MEDS: Dexamethasone 4 MG/ML SDV IVPUSH SCH (11:11)
[2021-05-20] MEDS: REMDESIVIR 100 MG in Sodium Chloride 0.9% 100 ML IV SCH (12:33)
[2021-05-20] MEDS: Docusate Sodium 100 MG Cap PO PRN (19:46)
[2021-05-20] MEDS: Benzonatate 100 MG Cap PO PRN (19:46)
[2021-05-20] MEDS: Magnesium Hydroxide 400 MG/5 ML Susp 30 ML Cup PO PRN (19:46)
[2021-05-20] MEDS: Enoxaparin 40 MG/0.4 ML Syringe SUBCUT SCH (20:21)
[2021-05-20] MEDS: Melatonin 3 MG Tab PO SCH (20:21)
[2021-05-20] MEDS: traMADol 50 MG Tab PO PRN (20:54)
[2021-05-21] MEDS: Acetaminophen 325 MG Tab PO PRN ×4 (02:33→21:07)
[2021-05-21] MEDS: Levofloxacin 250 MG Tab PO SCH (09:10)
[2021-05-21] MEDS: traMADol 50 MG Tab PO PRN ×2 (09:10→21:07)
[2021-05-21] MEDS: Levofloxacin 500 MG Tab PO SCH (09:10)
[2021-05-21] MEDS: Benzonatate 100 MG Cap PO PRN ×2 (09:10→13:54)
[2021-05-21] MEDS: Venlafaxine 75 MG Tab PO SCH ×2 (09:10→20:23)
[2021-05-21] MEDS: Lidocaine 5% 700 MG Patch TRDERM SCH (09:11)
[2021-05-21] MEDS: LORazepam 0.5 MG Tab PO PRN ×3 (10:17→22:08)
[2021-05-21] MEDS: REMDESIVIR 100 MG in Sodium Chloride 0.9% 100 ML IV SCH (11:11)
[2021-05-21] MEDS: Dexamethasone 4 MG/ML SDV IVPUSH SCH (11:12)
[2021-05-21] MEDS: Enoxaparin 40 MG/0.4 ML Syringe SUBCUT SCH (20:23)
[2021-05-21] MEDS: Melatonin 3 MG Tab PO SCH (20:23)
[2021-05-22] MEDS: LORazepam 0.5 MG Tab PO PRN ×3 (05:34→21:39)
[2021-05-22] MEDS: Venlafaxine 75 MG Tab PO SCH ×2 (09:01→21:42)
[2021-05-22] MEDS: Levofloxacin 500 MG Tab PO SCH (09:02)
[2021-05-22] MEDS: Levofloxacin 250 MG Tab PO SCH (09:02)
[2021-05-22] MEDS: Lidocaine 5% 700 MG Patch TRDERM SCH (09:02)
[2021-05-22] MEDS: Acetaminophen 325 MG Tab PO PRN ×2 (13:14→21:38)
[2021-05-22] MEDS: Dexamethasone 4 MG/ML SDV IVPUSH SCH (13:16)
[2021-05-22] MEDS: traMADol 50 MG Tab PO PRN (17:22)
[2021-05-22] MEDS: Melatonin 3 MG Tab PO SCH (21:42)
[2021-05-22] MEDS: Enoxaparin 40 MG/0.4 ML Syringe SUBCUT SCH (21:42)
[2021-05-23] MEDS: LORazepam 0.5 MG Tab PO PRN ×2 (01:24→22:27)
[2021-05-23] MEDS: traMADol 50 MG Tab PO PRN ×3 (01:24→20:26)
[2021-05-23] MEDS: Venlafaxine 75 MG Tab PO SCH ×2 (08:44→20:28)
[2021-05-23] MEDS: Levofloxacin 250 MG Tab PO SCH (08:44)
[2021-05-23] MEDS: Lidocaine 5% 700 MG Patch TRDERM SCH (08:44)
[2021-05-23] MEDS: Levofloxacin 500 MG Tab PO SCH (08:44)
[2021-05-23] MEDS: Dexamethasone 4 MG/ML SDV IVPUSH SCH (11:10)
[2021-05-23] MEDS: Acetaminophen 325 MG Tab PO PRN ×2 (12:06→20:19)
[2021-05-23] MEDS: oxyCODONE 5 MG Tab PO PRN ×2 (15:16→22:27)
[2021-05-23] MEDS: Melatonin 3 MG Tab PO SCH (20:28)
[2021-05-23] MEDS: Enoxaparin 40 MG/0.4 ML Syringe SUBCUT SCH (20:29)
[2021-05-24] MEDS: Acetaminophen 325 MG Tab PO PRN (07:45)
[2021-05-24] MEDS: traMADol 50 MG Tab PO PRN ×2 (07:46→17:10)
[2021-05-24] MEDS: Venlafaxine 75 MG Tab PO SCH ×2 (09:13→20:30)
[2021-05-24] MEDS: Levofloxacin 500 MG Tab PO SCH (09:14)
[2021-05-24] MEDS: Levofloxacin 250 MG Tab PO SCH (09:14)
[2021-05-24] MEDS: Lidocaine 5% 700 MG Patch TRDERM SCH (09:14)
[2021-05-24] MEDS: Ondansetron 4 MG/2 ML SDV IVPUSH PRN ×2 (10:51→20:45)
[2021-05-24] MEDS: Dexamethasone 4 MG/ML SDV IVPUSH SCH (11:01)
[2021-05-24] MEDS: LORazepam 0.5 MG Tab PO PRN ×2 (14:28→20:29)
[2021-05-24] MEDS: oxyCODONE 5 MG Tab PO PRN (20:29)
[2021-05-24] MEDS: Enoxaparin 40 MG/0.4 ML Syringe SUBCUT SCH (20:30)
[2021-05-24] MEDS: Melatonin 3 MG Tab PO SCH (20:30)
[2021-05-24] MEDS: CANNABIDIOL PO SCH (20:31)
[2021-05-25] MEDS: Acetaminophen 325 MG Tab PO PRN ×2 (02:19→13:17)
[2021-05-25] MEDS: Venlafaxine 75 MG Tab PO SCH (08:06)
[2021-05-25] MEDS: Lidocaine 5% 700 MG Patch TRDERM SCH (08:07)
[2021-05-25] MEDS: traMADol 50 MG Tab PO PRN (09:32)
[2021-05-25 10:29] VITALS: BP 103/67; PULSE 78
== END 2021-05-25 14:15 | disposition home or self-care (01) | DRG 177 ==
LOC: JP.ED 17:43 → JP.2SS 21:18 → OBSVTOIN 05-17 11:35
PROVIDERS: ADMIT Internal Medicine; ATTEND Hospitalist
PROC: 8E0ZXY6 Isolation (ICD-10-PCS; principal; 2021-05-15)
PROC: XW033E5 Introduction of Remdesivir Anti-infective into Peripheral Vein, Percutaneous Approach, New Technology Group 5 (ICD-10-PCS; 2021-05-17)
PROC: 3E0333Z Introduction of Anti-inflammatory into Peripheral Vein, Percutaneous Approach (ICD-10-PCS; 2021-05-17)
DX: U07.1 COVID-19 (principal); R53.1 Weakness; G89.4 Chronic pain syndrome; Z98.890 Other specified postprocedural states; J96.01 Acute respiratory failure with hypoxia; J15.9 Unspecified bacterial pneumonia; J12.82 Pneumonia due to coronavirus disease 2019; N28.9 Disorder of kidney and ureter, unspecified; E83.42 Hypomagnesemia; H54.7 Unspecified visual loss; K59.09 Other constipation; K21.9 Gastro-esophageal reflux disease without esophagitis; F41.9 Anxiety disorder, unspecified; G47.00 Insomnia, unspecified; E53.8 Deficiency of other specified B group vitamins; F41.0 Panic disorder [episodic paroxysmal anxiety]; Z88.8 Allergy status to other drugs, medicaments and biological substances; M19.90 Unspecified osteoarthritis, unspecified site; M54.9 Dorsalgia, unspecified; G89.29 Other chronic pain; F32.A Depression, unspecified; Z96.659 Presence of unspecified artificial knee joint; N18.32 Chronic kidney disease, stage 3b; E83.51 Hypocalcemia; E83.39 Other disorders of phosphorus metabolism; E87.6 Hypokalemia; Z88.2 Allergy status to sulfonamides; Z88.1 Allergy status to other antibiotic agents; Z88.6 Allergy status to analgesic agent; Z79.82 Long term (current) use of aspirin; Z79.899 Other long term (current) drug therapy; Z90.49 Acquired absence of other specified parts of digestive tract; Z98.84 Bariatric surgery status
CPT/HCPCS: 0241U; 36415; 71045; 74177; 80048; 80053; 81001; 82728; 83605; 83615; 83735; 84100; 84145; 85025; 85027; 85379; 86140; 87040; 94762; 96365; 97110; 97161; 97165; 97530; 99285; 96366; 96367; 96372; 96376; 99225; 99232; 99238; A9270-GY; G0378; J0692; J1100; J1650; J1956; J2405; J3475; J7030; J7050

== ENCOUNTER 2021-06-22 14:17 | Emergency (ER) | payer MEDICARE, OTHER ==
[2021-06-22] MEDS ORDERED: Bisacodyl 5 MG Tab PO ONE (15:07)
[2021-06-22] MEDS ORDERED: Polyethylene Glycol 3350 Powder 238 GM Bot PO ONE (15:09)
[2021-06-22 16:06] VITALS: BP 129/86; PULSE 94
== END 2021-06-22 16:46 | disposition home or self-care (01) ==
LOC: JP.ED 14:17
DX: K59.09 Other constipation (principal); Z88.5 Allergy status to narcotic agent; Z88.8 Allergy status to other drugs, medicaments and biological substances; Z88.2 Allergy status to sulfonamides
CPT/HCPCS: 99283; A9270